=== PATIENT | male | born 1950 | race Caucasian/White ===

== ENCOUNTER 2018-06-03 18:00 | Inpatient (IN) | payer MEDICARE ==
[~2018-06-03] VITALS: Ht 188 cm; Wt 107.0 kg
--- NOTE | 2018-06-03 18:15 | NUR ---
PT BIB RA WITH A C/O GLF. PT ARRIVED DISHEVELED, UNKEPT, ABLE TO MOVE ALL EXTREMITIES. DR DRAPER IS AT THE BEDSIDE. PT STATED THAT HE DID NOT FALL TODAY. THAT HIS FRIEND "KEEGAN", TOLD HIM TO SIT DOWN AND THE CHAIR WAS NOT THERE WHEN HE SAT. PT STATED THAT HE NEVER FALLS. PER EMS, PT HAS HAD MANY FALLS IN THE PAST AND THE PT'S HOUSE APPEARS UNKEPT. PT STATED THAT HE IS FINE TAKING CARE OF HIMSELF, BUT IS NOT ABLE TO GET UP OFF THE FLOOR BY HIMSELF WHEN HE FALLS. PT STATED THAT HIS PAIN IS CHRONIC AND THE INCIDENT TODAY CAUSED HIS CHRONIC PAIN TO FLARE UP.
[2018-06-03] MEDS ORDERED: ONDANSETRON HCL/PF 4 MG/2 ML VIAL ONE (18:21)
[2018-06-03] MEDS ORDERED: HYDROMORPHONE INJ 0.5 MG/0.5 ML SYRINGE ONE (18:22)
[2018-06-03] MEDS ORDERED: HYDROMORPHONE 1 MG/1 ML DISP.SYRIN IV ONE (18:30)
[2018-06-03] MEDS ORDERED: IV NS 0.9% 1,000 ML BAG IV ONE (18:30)
[2018-06-03] MEDS ORDERED: ONDANSETRON HCL/PF 4 MG/2 ML VIAL IV ONE (18:30)
--- NOTE | 2018-06-03 18:30 | NUR ---
PT REC'D A UNRINAL. PT IS NOT ABLE TO GIVE A URINE SAMPLE AT THIS TIME.
[2018-06-03 18:35] LABS: BASOPHILS % (AUTO) 0.2 % (0.0-2.0); EOSINOPHILS % (AUTO) 3.2 % (0.0-6.0); HEMATOCRIT 40 % (39-51); HEMOGLOBIN 14.3 g/dL (13.5-17.5); LYMPHOCYTES % (AUTO) 23.6 % (20.0-44.0); MEAN CORPUSCULAR HGB CONC 35 g/dl (31.0-36.0); MEAN CORPUSCULAR VOLUME 101 fL (80-96); MONOCYTES # (AUTO) 0.6 /CMM (0.1-1.30); NEUTROPHILS # (AUTO) 5.5 /CMM (1.8-8.9); PLATELET COUNT (AUTO) 204 /CMM (150-450); WHITE BLOOD COUNT (AUTO) 8.4 K/uL (4.3-11.0)
--- NOTE | 2018-06-03 18:39 | NUR ---
Note ian in EDM - 06/03/18 at [address] DRAPER IS AT THE BEDSIDE SPEAKING TO THE PT RE: THE CT'S THAT SHE REFUSED. DR. DRAPER IS SPEAKING TO THE PT'S BROTHER.
[2018-06-03 18:52] LABS: CALCIUM, SERUM 9.7 mg/dL (8.5-10.1); CARBON DIOXIDE 30 mmol/L (21-32); CHLORIDE 103 mmol/L (98-107); CREATININE 0.9 mg/dL (0.6-1.3); GLUCOSE 84 mg/dL (74-106); POTASSIUM 3.8 mmol/L (3.5-5.1); SODIUM SERUM 139 mmol/L (136-145); UREA NITROGEN, BLOOD 13 mg/dL (7-18)
[2018-06-03 18:57] LABS: ALANINE AMINOTRANSFERASE 21 U/L (12-78); ALBUMIN 3.6 g/dL (3.4-5.0); ALCOHOL, BLOOD 148 mg/dL (0-0); ALKALINE PHOSPHATASE 147 U/L (46-116); ASPARTATE AMINOTRANSFERASE 34 U/L (15-37); BILIRUBIN,DIRECT 0.3 mg/dL (0.0-0.2); BILIRUBIN,TOTAL 0.9 mg/dL (0.2-1.0); TOTAL PROTEIN, SERUM 8.1 g/dL (6.4-8.2)
--- NOTE | 2018-06-03 19:05 | NUR ---
CHRISTINA EMT SPOKE TO THE PT WHO IS STILL UNABLE TO GIVE A URINE SAMPLE.
--- NOTE | 2018-06-03 19:17 | NUR ---
CALLED FOR MS BED WAS INFORMED TO CALL BACK AFTER 1929
--- NOTE | 2018-06-03 19:45 | NUR ---
PT IS STILL NOT ABLE TO GIVE A URINE SAMPLE. IS AWARE.
[2018-06-03 19:56] LABS: THYROID STIMULATING HORMONE 181.201 uIU/mL (0.358-3.74)
--- NOTE | 2018-06-03 20:00 | NUR ---
PT LEFT FOR CT VIA RNEY
--- NOTE | 2018-06-03 20:42 | NUR ---
CALLED MORENITA RE: CT'S FOR PT. RADIOLOGIST IS GOING TO READ THEM NOW.
--- NOTE | 2018-06-03 21:22 | NUR ---
Graciela Morales, pt's cousin, she would like to be called in and present when the pt speaks to the social insurance adviser tomorrow. she can be reached at [phone].
--- NOTE | 2018-06-03 21:25 | NUR ---
report given to BLANCA Chirinos,.
--- NOTE | 2018-06-03 21:25 | NUR ---
calling report to MS nurse.
--- NOTE | 2018-06-03 21:40 | NUR ---
MS/RN RECEIVE PATIENT FROM E.. VIA [facility]. PATIENT IS AWAKE, ALERT, ORIENTED, COMFORTABLE, LOW BACK PAIN LEVEL2/10 AT REST, NO DISTRESS NOTED, MADE COMFORTABLE IN BED, TAUGHT THE USE OF CALL LIGHT, VERBALIZED UNDERSTANDING, PLACED IT AT BEDSIDE WITHIN REACH. ADMISSION DONE PER PROTOCOL. AWAITING MD ORDERS. WILL MONITOR.
[2018-06-03 22:00] VITALS: BP 142/90
[2018-06-03] MEDS ORDERED: THIAMINE HCL 100 MG TABLET PO SCH (23:00)
[2018-06-03] MEDS ORDERED: ACETAMINOPHEN 325 MG TABLET PO PRN (23:00)
[2018-06-03] MEDS ORDERED: ONDANSETRON HCL/PF 4 MG/2 ML VIAL IVP PRN (23:00)
[2018-06-03] MEDS ORDERED: Z GUARD REMEDY 2 OZ OINT TP PRN (23:00)
[2018-06-03] MEDS ORDERED: THIAMINE HCL 100 MG TABLET PO ONE (23:45)
[2018-06-03] MEDS ORDERED: DEXAMETHASONE SOD PHOSPHATE 4 MG/ML VIAL IV ONE (23:45)
[2018-06-03] MEDS ORDERED: ENOXAPARIN SODIUM 40 MG/0.4 ML DISP.SYRIN SQ ONE (23:45)
[2018-06-03] MEDS: IV NS 0.9% 1,000 ML IV PRN (23:54)
[2018-06-03] MEDS: GABAPENTIN 100 MG CAPSULE PO SCH (23:55)
[2018-06-03] MEDS: MAGNESIUM OXIDE 400 MG TABLET PO SCH (23:55)
--- NOTE | 2018-06-04 01:14 | NUR ---
MS/RN PATIENT IS SLEEPING AT THIS TIME, APPEAR COMFORTABLE, NO DISTRESS NOTED, CALL LIGHT IN REACH. WILL CONTINUE TO MONITOR.
[2018-06-04 07:14] LABS: BASOPHILS % (AUTO) 0.6 % (0.0-2.0); EOSINOPHILS % (AUTO) 0.1 % (0.0-6.0); HEMATOCRIT 40 % (39-51); LYMPHOCYTES # (AUTO) 0.6 /CMM (0.8-4.8); LYMPHOCYTES % (AUTO) 10.6 % (20.0-44.0); MEAN CORPUSCULAR HGB CONC 35 g/dl (31.0-36.0); MEAN CORPUSCULAR VOLUME 100 fL (80-96); MONOCYTES # (AUTO) 0.1 /CMM (0.1-1.30); MONOCYTES % (AUTO) 1.5 % (2.0-12.0); NEUTROPHILS # (AUTO) 5.2 /CMM (1.8-8.9); NEUTROPHILS % (AUTO) 87.2 % (43.0-81.0); PLATELET COUNT (AUTO) 175 /CMM (150-450); WHITE BLOOD COUNT (AUTO) 5.9 K/uL (4.3-11.0)
[2018-06-04 07:39] LABS: ALBUMIN 3.2 g/dL (3.4-5.0); BILIRUBIN,TOTAL 0.8 mg/dL (0.2-1.0); CREATININE 0.6 mg/dL (0.6-1.3); PHOSPHORUS 4.2 mg/dL (2.5-4.9); POTASSIUM 4.5 mmol/L (3.5-5.1); TOTAL PROTEIN, SERUM 7.5 g/dL (6.4-8.2)
[2018-06-04 07:50] LABS: THYROID STIMULATING HORMONE 71.014 uIU/mL (0.358-3.74)
--- NOTE | 2018-06-04 07:55 | NUR ---
MS/RN PATIENT STILL SLEEPING, AROUSABLE, APPEAR COMFORTABLE, NO DISTRESS NOTED, ALL NEEDS ATTENDED AT THIS TIME. ENDORSED TO NEXT RN FOR CONTINUITY OF CARE.
[2018-06-04 08:00] VITALS: BP 128/86
--- NOTE | 2018-06-04 08:05 | NUR ---
ms rn received on bed, awake,alert,oriented x4,not in any form of distress,respirations even and unlabored,no sob noted, lungs are clear,abdomen soft,positive bowel sounds,denies pain at this time,all needs attended.
[2018-06-04] MEDS: LEVOTHYROXINE SODIUM 100 MCG TABLET PO SCH (09:35)
[2018-06-04] MEDS: MULTIVITAMINS,THERAGRAN 1 UDTAB TABLET PO SCH (09:36)
[2018-06-04] MEDS: THIAMINE HCL 100 MG TABLET PO SCH (09:36)
[2018-06-04] MEDS: GABAPENTIN 100 MG CAPSULE PO SCH ×3 (09:36→16:49)
--- NOTE | 2018-06-04 09:40 | NUR ---
MS RIOS BREAKFAST SERVED,DUE MEDS GIVEN,TOLERATED WELL.
[2018-06-04] MEDS: LIOTHYRONINE SODIUM (25 MCG) 25 MCG TABLET PO SCH (09:50)
[2018-06-04] MEDS: HYDROCODONE/APAP 5/325MG 1 EACH TABLET PO PRN (12:03)
--- NOTE | 2018-06-04 14:00 | NUR ---
MS RN WENT DOWN FOR MRI.
--- NOTE | 2018-06-04 14:02 | NUR ---
Social service consult requested by Dr. Romero for alcohol abuse. Pt. is a 67 year old male who was admitted to [facility] for general weakness and back pain. SW met with pt. bedside. Pt. is alert and oriented x 4. Pt. was lying in his bed during the entire assessment. Initially pt. was guarded, however as the assessment continued pt. became more talkative and shared more. Pt. states he lives alone at [address] [place] [address] [place] [address]. Pt's emergency contact is his cousin Graciela Tesfaye . Pt. is and has two daughters who are emotionally distant from him as stated by the pt. Pt. states he has no family support at home. Pt. is interested in receiving some caregiving at home. SW to reach out to hospital insurance Liaison Ying to inquire if pt. will qualify for Medi-gertrude. Pt. states he drinks approximately two glasses of hard liquor and beer per day. Pt. states he has been drinking for a long time. Pt. stated, he started drinking heavier after his divorce six years ago. Pt. has not been to any alcohol treatment program in the past or attended AA meetings. Pt. is interested in alcohol treatment program referrals. SW to give pt. referrals prior to discharge. 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 Pt. has been having back problems and is using alcohol to help alleviate his pain, thus drinking more. Pt. will be getting an MRI. No other social service needs are requested at this time. SW is available, if needed. SW to give pt. alcohol treatment program referrals prior to discharge.
[2018-06-04 16:00] VITALS: BP 126/82
[2018-06-04] MEDS: IV NS 0.9% 1,000 ML IV PRN (16:50)
--- NOTE | 2018-06-04 17:00 | NUR ---
MS RN DUE MEDS,FAMILY AT BEDSIDE.
--- NOTE | 2018-06-04 17:52 | NUR ---
MS RN ON BED, NO DISTRESS NOTED,ALL NEEDS ATTENDED.
--- NOTE | 2018-06-04 19:00 | NUR ---
MS RN RECEIVED PT ON BED, A/O X 3, NOT IN ANY FORM OF DISTRESS, RESPIRATIONS EVEN AND UNLABORED, NO SOB NOTED, STABLE CONDITION. SAFETY MEASURES IN PLACE. WILL CONTINUE TO MONITOR.
[2018-06-04 19:54] LABS: APPEARANCE,URINE CLOUDY (CLEAR); BILIRUBIN,URINE NEGATIVE (NEGATIVE); BLOOD, URINE NEGATIVE Ery/uL (NEGATIVE); COLOR,URINE YELLOW (YELLOW); KETONES,URINE NEGATIVE (NEGATIVE); LEUKOCYTE ESTERASE ,URINE NEGATIVE (NEGATIVE); NITRITE, URINE NEGATIVE (NEGATIVE); PROTEIN,URINE NEGATIVE (NEGATIVE); UGLUCOSE NEGATIVE (NEGATIVE)
[2018-06-04 20:00] VITALS: BP 122/80
--- NOTE | 2018-06-04 20:29 | NUR ---
PATIENT WANTS TO HAVE THE ECHO TEST DONE TOMORROW.
[2018-06-04 20:43] VITALS: BP 122/80
[2018-06-04] MEDS: ENOXAPARIN SODIUM 40 MG/0.4 ML DISP.SYRIN SQ SCH (20:58)
[2018-06-04] MEDS: MAGNESIUM OXIDE 400 MG TABLET PO SCH (21:12)
[2018-06-04 21:33] LABS: BACTERIA,URINE None seen /HPF (None Seen); RBC,URINE 0-2 /HPF (0-2); SQUAMOUS EPITHELIAL CELL,UR Rare /HPF (None Seen); WBC,URINE 0-2 /HPF (0-3)
[2018-06-04 21:34] LABS: URINE AMORPHOUS URATE Many /HPF (None Seen)
[2018-06-05] MEDS: IV NS 0.9% 1,000 ML IV PRN ×2 (05:56→21:11)
--- NOTE | 2018-06-05 06:19 | NUR ---
RN CLOSING NOTE ASLEEP AND EASILY AWAKEN. NOT IN DISTRESS. STABLE, NURSING CARE RENDERED, KEPT CLEAN AND DRY AND COMFORT, NEEDS ATTENDED AND ANTICIPATED. NO COMPLAIN OF PAIN. ASSISTED REPOSITION EVERY 2 HOURS. OFFLOAD HEELS AND ELBOWS. GOOD SKIN CARE. SAFETY MEASURES IN PLACE, CALL LIGHT WITHIN REACH. WILL ENDORSE TO GAG WRITER FOR KELLY.
--- NOTE | 2018-06-05 07:10 | NUR ---
MS RN OPENING NOTE RECEIVED PT ASLEEP IN BED BUT EASILY AWOKEN BY VERBAL OR TOUCH. PT ABLE TO MAKE NEEDS KNOWN. NO S/S OF ACUTE DISTRESS OR SOB NOTED. NO COMPLAINT OF PAIN AT THIS TIME. CALL LIGHT WITHIN REACH. WILL CONTINUE TO MONITOR.
[2018-06-05 08:00] VITALS: BP 116/70
[2018-06-05] MEDS: GABAPENTIN 100 MG CAPSULE PO SCH ×3 (08:10→17:14)
[2018-06-05] MEDS: MULTIVITAMINS,THERAGRAN 1 UDTAB TABLET PO SCH (08:10)
[2018-06-05] MEDS: THIAMINE HCL 100 MG TABLET PO SCH (08:10)
[2018-06-05] MEDS: LIOTHYRONINE SODIUM (25 MCG) 25 MCG TABLET PO SCH (08:10)
[2018-06-05] MEDS: LEVOTHYROXINE SODIUM 100 MCG TABLET PO SCH (08:10)
--- NOTE | 2018-06-05 11:04 | NUR ---
SW met with pt. bedside to give him resources to Alcohol treatment programs. Pt. is alert and oriented x 4. The following resources were given: [facility] Substance Abuse Self-helpline ([facility]) Contact number . [facility] [address] [facility] [place] [id number] [facility] [address] [facility] [place] [address] [facility] Rehabilitation Program ([place] based) [address] [place] [address] (Six months program and need to work for 8 hrs per day while in treatment) [facility] (No insurance required) [address] [place] [address] [facility] [address] [facility] [address] Closed on Sunday Open Sunday through Sunday 9 am -6 pm Sunday 10am 5 pm [facility] [phone] [place] [address] No other social service needs are requested at this time. SW is available, if needed.
[2018-06-05 16:05] VITALS: BP 102/56
[2018-06-05 20:19] VITALS: BP 133/89
[2018-06-05] MEDS: MAGNESIUM OXIDE 400 MG TABLET PO SCH (21:10)
[2018-06-05] MEDS: ENOXAPARIN SODIUM 40 MG/0.4 ML DISP.SYRIN SQ SCH (21:10)
[2018-06-05] MEDS: HYDROCODONE/APAP 5/325MG 1 EACH TABLET PO PRN (21:11)
--- NOTE | 2018-06-06 06:30 | NUR ---
MS RN NOTES AWAKE & RESPONSIVE. NOT IN ANY DISTRESS. NO SOB NOTED. DENIES ANY PAIN OR DISCOMFORT AT THIS TIME. WITH IVF INFUSING WELL. MONITORED ACCORDINGLY. CALL LIGHT WITHIN REACH. BED IN LOWEST POSITION. SR UP X 3 FOR SAFETY WITH BED ALARM ON FOR SAFETY. WILL ENDORSE TO NEXT SHIFT.
--- NOTE | 2018-06-06 07:10 | NUR ---
MS RN OPENING NOTE RECEIVED PT ASLEEP IN BED BUT EASILY AWOKEN BY VERBAL OR TOUCH. NS@75 ML/HR IN RAC 18G. PT ABLE TO MAKE NEEDS KNOWN. NO S/S OF ACUTE DISTRESS OR SOB NOTED. NO COMPLAINT OF PAIN AT THIS TIME. CALL LIGHT WITHIN REACH. WILL CONTINUE TO MONITOR.
[2018-06-06 08:00] VITALS: BP 133/75
[2018-06-06] MEDS: MULTIVITAMINS,THERAGRAN 1 UDTAB TABLET PO SCH (08:36)
[2018-06-06] MEDS: GABAPENTIN 100 MG CAPSULE PO SCH ×3 (08:36→16:51)
[2018-06-06] MEDS: LEVOTHYROXINE SODIUM 100 MCG TABLET PO SCH (08:36)
[2018-06-06] MEDS: THIAMINE HCL 100 MG TABLET PO SCH (08:36)
[2018-06-06] MEDS: LIOTHYRONINE SODIUM (25 MCG) 25 MCG TABLET PO SCH (08:36)
[2018-06-06] MEDS ORDERED: GABA100C PO (14:25)
[2018-06-06] MEDS ORDERED: HYDR-3972 PO (14:25)
[2018-06-06] MEDS ORDERED: LEVO100T PO (14:25)
[2018-06-06] MEDS ORDERED: ACET325T53 PO (14:25)
[2018-06-06] MEDS ORDERED: Thiamine HCL PO (14:25)
[2018-06-06] MEDS ORDERED: LIOT25TA7 PO (14:25)
[2018-06-06] MEDS ORDERED: MULT-24 PO (14:25)
[2018-06-06 15:53] VITALS: BP 95/52
[2018-06-06] MEDS: IV NS 0.9% 1,000 ML IV PRN (16:52)
--- NOTE | 2018-06-06 18:00 | NUR ---
MS RN CLOSING NOTES PT IN BED AWAKE AND ALERT WATCHING TV. NO S/S OF ACUTE DISTRESS OR SOB NOTED. DENIES ANY PAIN OR DISCOMFORT AT THIS TIME. PT WITH IVF INFUSING WELL IN RIGHT HAND #22. MONITORED ACCORDINGLY. POSSIBLE D/C TOMORROW TO [facility] AFTER PT EVALUATION. ORDER FOR TLSO BRACE WHEN OUT OF BED FOR 6 WEEKS. CALL LIGHT WITHIN REACH. BED IN LOWEST POSITION. SR UP X 3 FOR SAFETY WITH BED ALARM ON. WILL ENDORSE TO NEXT SHIFT OR CONTINUED CARE.
[2018-06-06 20:00] VITALS: BP 107/67
--- NOTE | 2018-06-06 20:00 | NUR ---
MS RN NOTES RECEIVED PATIENT AWAKE IN BED WITH NO DISTRESS NOTED. CALL LIGHT WITHIN REACH. NO C/O PAIN OR DISCOMFORT. PERIPHERAL LINE INTACT AND PATENT. BED IN LOW LOCK SETTING. ALL BELONGINGS KEPT NEAR BEDSIDE. WILL CONTINUE TO MONITOR.
[2018-06-06] MEDS: MAGNESIUM OXIDE 400 MG TABLET PO SCH (21:45)
[2018-06-06] MEDS: ENOXAPARIN SODIUM 40 MG/0.4 ML DISP.SYRIN SQ SCH (21:46)
--- NOTE | 2018-06-07 06:09 | NUR ---
MS RN NOTES RECEIVED PATIENT ASLEEP IN BED WITH NO DISTRESS NOTED. CALL LIGHT WITHIN REACH. ALL DUE MEDS GIVEN ORDERED WITH NO ASE. NO C/O PAIN OR DISCOMFORT. PERIPHERAL LINE INTACT AND PATENT. BED IN LOW LOCK SETTING. ROOM FREE OF CLUTTER AND ALL BELONGINGS KEPT NEAR BEDSIDE. WILL ENDORSE TO ONCOMING SHIFT.
[2018-06-07 06:27] LABS: BASOPHILS # (AUTO) 0.1 /CMM (0.0-0.2); BASOPHILS % (AUTO) 0.7 % (0.0-2.0); EOSINOPHILS % (AUTO) 3.5 % (0.0-6.0); HEMATOCRIT 36 % (39-51); HEMOGLOBIN 12.9 g/dL (13.5-17.5); LYMPHOCYTES # (AUTO) 1.3 /CMM (0.8-4.8); LYMPHOCYTES % (AUTO) 16.4 % (20.0-44.0); MEAN CORPUSCULAR HGB CONC 35 g/dl (31.0-36.0); MEAN CORPUSCULAR VOLUME 101 fL (80-96); MONOCYTES # (AUTO) 0.9 /CMM (0.1-1.30); MONOCYTES % (AUTO) 11.7 % (2.0-12.0); NEUTROPHILS # (AUTO) 5.2 /CMM (1.8-8.9); NEUTROPHILS % (AUTO) 67.7 % (43.0-81.0); PLATELET COUNT (AUTO) 138 /CMM (150-450); RED BLOOD CELL COUNT(AUTO) 3.62 MIL/uL (4.5-6.0); WHITE BLOOD COUNT (AUTO) 7.7 K/uL (4.3-11.0)
[2018-06-07 06:41] LABS: CALCIUM, SERUM 8.5 mg/dL (8.5-10.1); CREATININE 0.5 mg/dL (0.6-1.3); MAGNESIUM 1.8 mg/dL (1.8-2.4); PHOSPHORUS 3.9 mg/dL (2.5-4.9); POTASSIUM 3.9 mmol/L (3.5-5.1)
[2018-06-07] MEDS: IV NS 0.9% 1,000 ML IV PRN (06:43)
--- NOTE | 2018-06-07 07:00 | NUR ---
MS RN OPENING NOTE RECEIVED PT ASLEEP IN BED BUT EASILY AWOKEN BY VERBAL STIMULI OR TOUCH. NS@75 ML/HR IN RIGHT HAND #22G. PT ABLE TO MAKE NEEDS KNOWN. NO S/S OF ACUTE DISTRESS OR SOB NOTED. NO COMPLAINT OF PAIN AT THIS TIME. CALL LIGHT WITHIN REACH. WILL CONTINUE TO MONITOR.
[2018-06-07 08:00] VITALS: BP 103/68
[2018-06-07] MEDS: THIAMINE HCL 100 MG TABLET PO SCH (08:03)
[2018-06-07] MEDS: MULTIVITAMINS,THERAGRAN 1 UDTAB TABLET PO SCH (08:03)
[2018-06-07] MEDS: LIOTHYRONINE SODIUM (25 MCG) 25 MCG TABLET PO SCH (08:03)
[2018-06-07] MEDS: GABAPENTIN 100 MG CAPSULE PO SCH ×3 (08:04→16:50)
[2018-06-07] MEDS: LEVOTHYROXINE SODIUM 100 MCG TABLET PO SCH (08:04)
[2018-06-07 16:00] VITALS: BP 132/87
[2018-06-07] MEDS ORDERED: BISACODYL (5 MG) 5 MG TABLET.DR PO ONE (16:30)
[2018-06-07] MEDS: HYDROCODONE/APAP 5/325MG 1 EACH TABLET PO PRN (17:56)
--- NOTE | 2018-06-07 18:46 | NUR ---
M/S RN - Discharge Patient aox4, discharged to [facility] in stable condition. Reviewed discharge instructions with Marixa RIOS and she verbalized full understanding and all questions answered to her satisfaction. Cousin of pt Graciela informed of discharge. Patient will have TLSO brace when out of bed x 6 weeks. Saline lock removed on the right hand with catheter tip intact, no redness, no swelling at the site. Skin intact. Patient left with all belongings. VSS, no complaints of pain at this time, afebrile, no apparent distress seen. No fall/injury during hospital stay. Discharge papers sent with ambulance crew including. Endorsed to ambulance crew accordingly.
== END 2018-06-07 18:40 | DRG 544 ==
LOC: ER 18:03 → MED 20:36
PROVIDERS: ADMIT Nurse Practitioner Acute Care; ATTEND Student in an Organized Health Care Education/Training Program
DX: M48.56XA Collapsed vertebra, not elsewhere classified, lumbar region, initial encounter for fracture (principal); M48.07 Spinal stenosis, lumbosacral region; M51.36 Other intervertebral disc degeneration, lumbar region; E23.3 Hypothalamic dysfunction, not elsewhere classified; E53.8 Deficiency of other specified B group vitamins; E03.9 Hypothyroidism, unspecified; G89.29 Other chronic pain; I10 Essential (primary) hypertension; F10.20 Alcohol dependence, uncomplicated; D75.89 Other specified diseases of blood and blood-forming organs; M47.816 Spondylosis without myelopathy or radiculopathy, lumbar region
CPT/HCPCS: 36415; 70450-TC; 71045-TC; 72131-TC; 72148-TC; 80048-TC; 80053-TC; 80061-TC; 80076-TC; 80305; 81000-TC; 82024; 82533; 82550-TC; 83540-TC; 83735-TC; 84100-TC; 84439-TC; 84443-TC; 84484-TC; 85025-TC; 85652-TC; 85730-TC; 87081-TC; 93307-TC; G0378; G0480; J1100; J1650; J2405; J7030

== ENCOUNTER 2022-02-18 19:52 | Inpatient (IN) | payer MEDICARE ==
[~2022-02-18] VITALS: Ht 190.5 cm; Wt 109.8 kg
[~2022-02-18 19:52] MED LIST: ACET325T53 PO; GABA100C PO; HYDR-3972 PO; LEVO100T PO; LIOT25TA7 PO; MULT-24 PO; Thiamine HCL PO
--- NOTE | 2022-02-18 20:15 | NUR ---
TO ER BED 9. BIBRA FROM HOME C/O UNWITNESSED GLF -KO -TRAUMA .HX CHRONIC BACK PAIN. PT IS ALERT. RR EVEN AND NON LABORED. CONNECTED TO MONITOR. AWAITING MD HAYES
--- NOTE | 2022-02-18 21:00 | NUR ---
URINE SAMPLE COLLECTED
[2022-02-18 21:09] LABS: BASOPHILS # (AUTO) 0.1 K/uL (0.0-0.2); BASOPHILS % (AUTO) 1.1 % (0.0-2.0); EOSINOPHILS % (AUTO) 6.6 % (0.0-6.0); HEMATOCRIT 43 % (39-51); HEMOGLOBIN 15.1 g/dL (13.5-17.5); LYMPHOCYTES # (AUTO) 1.8 K/uL (0.8-4.8); LYMPHOCYTES % (AUTO) 29.8 % (20.0-44.0); MEAN CORPUSCULAR HGB CONC 35 g/dl (31.0-36.0); MEAN CORPUSCULAR VOLUME 106 fL (80-96); MONOCYTES # (AUTO) 0.4 K/uL (0.1-1.30); MONOCYTES % (AUTO) 6.4 % (2.0-12.0); NEUTROPHILS # (AUTO) 3.3 K/uL (1.8-8.9); NEUTROPHILS % (AUTO) 56.1 % (43.0-81.0); PLATELET COUNT (AUTO) 143 K/uL (150-450); RED BLOOD CELL COUNT(AUTO) 4.05 MIL/uL (4.5-6.0); WHITE BLOOD COUNT (AUTO) 5.9 K/uL (4.3-11.0)
[2022-02-18 21:19] LABS: BILIRUBIN,URINE NEGATIVE (NEGATIVE); COLOR,URINE YELLOW (YELLOW); LEUKOCYTE ESTERASE ,URINE MODERATE (NEGATIVE); NITRITE, URINE NEGATIVE (NEGATIVE); PROTEIN,URINE NEGATIVE (NEGATIVE); UGLUCOSE NEGATIVE (NEGATIVE)
[2022-02-18 21:29] LABS: CALCIUM, SERUM 9.9 mg/dL (8.5-10.1); CREATININE 1.1 mg/dL (0.6-1.3); POTASSIUM 4.2 mmol/L (3.5-5.1)
[2022-02-18 21:34] LABS: ALBUMIN 4.1 g/dL (3.4-5.0); BILIRUBIN,DIRECT 0.7 mg/dL (0.0-0.2); BILIRUBIN,TOTAL 1.7 mg/dL (0.2-1.0); TOTAL PROTEIN, SERUM 9.2 g/dL (6.4-8.2)
[2022-02-18 21:35] LABS: BASOPHILS % (MANUAL) 1 % (0.0-2.0); EOSINOPHILS % (MANUAL) 3 % (0-4); LYMPHOCYTES % (MANUAL) 36 % (16-48); MONOCYTES % (MANUAL) 6 % (0-11.0); NEUTROPHILS % (MANUAL) 54 (42-76)
[2022-02-18 21:53] LABS: BACTERIA,URINE Moderate /HPF (None Seen); RBC,URINE 0-2 /HPF (0-2); SQUAMOUS EPITHELIAL CELL,UR Few /HPF (None Seen); WBC,URINE 21-50 /HPF (0-3)
--- NOTE | 2022-02-18 22:27 | NUR ---
IV LINE ESTABLISHED, LHAND 20G
--- NOTE | 2022-02-18 22:27 | NUR ---
COVID SAMPLE COLLECTED
[2022-02-18] MEDS ORDERED: CEFTRIAXONE 1GM BAG (ER ONLY) 50 ML IV ONE ×2 (22:30)
--- NOTE | 2022-02-18 22:31 | NUR ---
CALLED [facility], PAGED FLORA MARIEE
[2022-02-18] MEDS ORDERED: Z GUARD REMEDY 4 OZ OINT TP PRN (23:30)
[2022-02-18] MEDS ORDERED: MAG HYDROX/AL HYDROX/SIMETH 30 ML UDC PO PRN (23:30)
[2022-02-18] MEDS ORDERED: IV D5/0.45 NACL 1,000 ML IV PRN (23:30)
[2022-02-18] MEDS ORDERED: MAGNESIUM HYDROXIDE 30 ML UDC PO PRN (23:30)
[2022-02-18] MEDS ORDERED: ONDANSETRON HCL/PF 4 MG/2 ML VIAL IVP PRN (23:30)
[2022-02-18] MEDS ORDERED: ACETAMINOPHEN 325 MG TABLET PO PRN ×2 (23:30)
[2022-02-19] MEDS ORDERED: IV NS 0.9% 1,000 ML IV ONE
--- NOTE | 2022-02-19 01:22 | NUR ---
PT IS RESTING COMFORTABLY IN BED W/ EYES CLOSED, RR EVEN AND NON LABORED. CONNECTED TO MONITOR
--- NOTE | 2022-02-19 03:00 | NUR ---
PT PROVIDED WITH WARM BLANKET FOR COMFORT.
[2022-02-19 05:03] LABS: BASOPHILS % (AUTO) 0.3 % (0.0-2.0); EOSINOPHILS % (AUTO) 7.4 % (0.0-6.0); HEMATOCRIT 41 % (39-51); HEMOGLOBIN 14.2 g/dL (13.5-17.5); LYMPHOCYTES # (AUTO) 2.2 K/uL (0.8-4.8); LYMPHOCYTES % (AUTO) 33.5 % (20.0-44.0); MEAN CORPUSCULAR HGB CONC 35 g/dl (31.0-36.0); MEAN CORPUSCULAR VOLUME 107 fL (80-96); MONOCYTES # (AUTO) 0.5 K/uL (0.1-1.30); MONOCYTES % (AUTO) 7.4 % (2.0-12.0); NEUTROPHILS # (AUTO) 3.4 K/uL (1.8-8.9); NEUTROPHILS % (AUTO) 51.4 % (43.0-81.0); PLATELET COUNT (AUTO) 138 K/uL (150-450); RED BLOOD CELL COUNT(AUTO) 3.82 MIL/uL (4.5-6.0); WHITE BLOOD COUNT (AUTO) 6.6 K/uL (4.3-11.0)
[2022-02-19 05:20] LABS: CALCIUM, SERUM 9.1 mg/dL (8.5-10.1); PHOSPHORUS 3.9 mg/dL (2.5-4.9); POTASSIUM 3.9 mmol/L (3.5-5.1)
[2022-02-19 05:32] LABS: THYROID STIMULATING HORMONE 218.431 uIU/mL (0.358-3.74)
--- NOTE | 2022-02-19 06:43 | NUR ---
PT CONTINUES TO REST IN BED WITH EYES CLOSED. RR EVEN AND NONLABORED. NO SIGNS OF DISTRESS. CONNECTED TO POX AND HEART MONITOR.VSS.
--- NOTE | 2022-02-19 07:15 | NUR ---
RECEVED PT FROM MASHA RIOS PT asleepy wating for room respiration spont and easy
--- NOTE | 2022-02-19 07:21 | NUR ---
REPORT GIVEN TO PHEOBE FOR KELLY
[2022-02-19] MEDS ORDERED: LEVOTHYROXINE SODIUM 100 MCG TABLET PO SCH (07:30)
[2022-02-19] MEDS ORDERED: LIOTHYRONINE SODIUM (25 MCG) 25 MCG TABLET PO SCH (07:30)
--- NOTE | 2022-02-19 07:46 | NUR ---
BED ESRTGMIB=779-2
--- NOTE | 2022-02-19 08:30 | NUR ---
TO ROOM 313- 2 HAND OFF MORELIA RIOS
--- NOTE | 2022-02-19 08:35 | NUR ---
TO room 313-2 via tanner troncoso vs
[2022-02-19 09:00] VITALS: BP 111/69
[2022-02-19] MEDS ORDERED: LEVOTHYROXINE INJ 100 MCG VIAL IV ONE (09:00)
[2022-02-19] MEDS ORDERED: CEFTRIAXONE 1 G in IV D5W 50 ML IV SCH (09:00)
--- NOTE | 2022-02-19 09:00 | NUR ---
RECEIVED PATIENT FROM ED WITH CHIEF COMPLAINED OF UNWITNESSED FALL. AWAKE, ALERT AND ORIENTED. ON ROOM AIR. WITH IV LINE AT LEFT HAND. INTIAL VITALS TAKEN AND RECORDED. ALL DUE MEDS WERE GIVEN. WILL MONITOR. KEPT COMFORTABLE. Addendum: 02/19/22 at 1308 by RUTH MADERA RN BLANCA FARMER
[2022-02-19] MEDS ORDERED: LEVOTHYROXINE SODIUM 50 MCG TABLET PO SCH (09:30)
[2022-02-19] MEDS ORDERED: LORAZEPAM INJ 2 MG/ML VIAL IV PRN (09:30)
[2022-02-19] MEDS: GABAPENTIN 100 MG CAPSULE PO SCH ×3 (09:50→16:23)
[2022-02-19] MEDS: FOLIC ACID 1 MG TABLET PO SCH (09:50)
[2022-02-19] MEDS: THIAMINE HCL 100 MG TABLET PO SCH (09:50)
[2022-02-19] MEDS: MULTIVITAMINS,THERAGRAN 1 UDTAB TABLET PO SCH (09:50)
[2022-02-19] MEDS: PANTOPRAZOLE 40 MG TABLET.DR PO SCH (09:58)
[2022-02-19] MEDS: IV D5/ 0.9% NACL 1,000 ML IV SCH ×2 (10:07→19:44)
[2022-02-19] MEDS: CEFTRIAXONE 2 G in IV D5W 100 ML IV SCH (10:08)
[2022-02-19] MEDS: LEVOTHYROXINE SODIUM 100 MCG TABLET PO SCH (10:25)
[2022-02-19 10:29] LABS: BASOPHILS % (MANUAL) 0 % (0.0-2.0); EOSINOPHILS % (MANUAL) 4 % (0-4); LYMPHOCYTES % (MANUAL) 29 % (16-48); MONOCYTES % (MANUAL) 6 % (0-11.0); NEUTROPHILS % (MANUAL) 61 (42-76)
[2022-02-19] MEDS: LIOTHYRONINE SODIUM (25 MCG) 25 MCG TABLET PO SCH (11:33)
[2022-02-19] MEDS: CHLORDIAZEPOXIDE HCL 25 MG CAPSULE PO SCH ×2 (12:33→21:11)
--- NOTE | 2022-02-19 18:39 | NUR ---
RN CLOSING NOTE PATIENT IS A/O X 3, COOPERATIVE AND ABLE TO MAKE NEEDS KNOWN. ON RA, TOLERATING WELL. NO SOB NOTED. BREATHING EVEN AND UNLABORED. PATIENT HAS LFA 20 G IV ACCESS,INFUSING WELL. NO FURTHER COMPLAINS ALL THROUGHOUT THE SHIFT. SAFETY MEASURES IN PLACE: BED LOCKED AND IN LOWEST POSITION, CALL LIGHT WITHIN REACH, SIDE RAILS UP. ALL NEEDS MET AND ATTENDED. ALL ORDERS CARRIED OUT. WILL ENDORSE TO BUTTON SEWER NURSE FOR KELLY.
[2022-02-19 19:16] VITALS: BP 101/66
[2022-02-19 19:22] VITALS: BP 101/66
--- NOTE | 2022-02-19 20:15 | NUR ---
MS RN OPENING NOTE RECEIVED PATIENT RESTING IN BED, ALERT/ORIENTED X 3, PERIODS OF CONFUSION PER DAYSHIFT RN. PATIENT STABLE ON RA, NO S/S OF DISTRESS OR SOB NOTED, BREATHING EVEN AND UNLABORED. IV ACCESS ON LEFT HAND #20G INTACT AND INFUSING D5NS @ 100 ML/HR. SAFETY MEASURES IN PLACE: CALL LIGHT WITHIN REACH, SIDE RAILS UP X 2, BED LOCKED IN LOWEST POSITION, BED ALARM ON. WILL CONTINUE TO MONITOR PATIENT
[2022-02-19 20:30] VITALS: BP 100/63
[2022-02-20] MEDS: CHLORDIAZEPOXIDE HCL 25 MG CAPSULE PO SCH ×3 (05:52→21:19)
[2022-02-20] MEDS: IV D5/ 0.9% NACL 1,000 ML IV SCH ×2 (05:52→16:39)
--- NOTE | 2022-02-20 06:51 | NUR ---
MS RN CLOSING NOTE PATIENT SLEEPING IN BED, EASILY AWAKENED, PT ALERT/ORIENTED X 3, PT UNKEPT. PATIENT STABLE ON RA, NO S/S OF DISTRESS OR SOB NOTED, BREATHING EVEN AND UNLABORED. IV ACCESS ON LEFT HAND #20G INTACT AND INFUSING D5NS @ 100 ML/HR. MEDICATIONS GIVEN ORDERED, PT NEEDS MET THROUGHOUT SHIFT. SAFETY MEASURES IN PLACE: CALL LIGHT WITHIN REACH, SIDE RAILS UP X 2, BED LOCKED IN LOWEST POSITION, BED ALARM ON. WILL ENDORSE TO DAYSHIFT NURSE FOR CONTINUITY OF CARE
--- NOTE | 2022-02-20 07:15 | NUR ---
MS RN OPENING NOTE RECEIVED PATIENT RESTING IN BED, ALERT/ORIENTED X 3. PATIENT STABLE ON RA, NO S/S OF DISTRESS OR SOB NOTED, BREATHING EVEN AND UNLABORED. IV ACCESS ON LEFT HAND #20G INTACT AND INFUSING D5NS @ 100 ML/HR. SAFETY MEASURES IN PLACE: CALL LIGHT WITHIN REACH, SIDE RAILS UP X 2, BED LOCKED IN LOWEST POSITION, BED ALARM ON. WILL CONTINUE TO MONITOR PATIENT
[2022-02-20 08:00] VITALS: BP 105/69
[2022-02-20] MEDS: LEVOTHYROXINE SODIUM 100 MCG TABLET PO SCH (08:24)
[2022-02-20] MEDS: LIOTHYRONINE SODIUM (25 MCG) 25 MCG TABLET PO SCH (08:25)
[2022-02-20] MEDS: MULTIVITAMINS,THERAGRAN 1 UDTAB TABLET PO SCH (08:25)
[2022-02-20] MEDS: THIAMINE HCL 100 MG TABLET PO SCH (08:25)
[2022-02-20] MEDS: GABAPENTIN 100 MG CAPSULE PO SCH ×3 (08:25→16:42)
[2022-02-20] MEDS: PANTOPRAZOLE 40 MG TABLET.DR PO SCH (08:38)
[2022-02-20 08:45] LABS: BASOPHILS # (AUTO) 0.1 K/uL (0.0-0.2); BASOPHILS % (AUTO) 1.6 % (0.0-2.0); EOSINOPHILS % (AUTO) 6.5 % (0.0-6.0); HEMATOCRIT 41 % (39-51); LYMPHOCYTES # (AUTO) 1.6 K/uL (0.8-4.8); LYMPHOCYTES % (AUTO) 26.2 % (20.0-44.0); MEAN CORPUSCULAR HGB CONC 34 g/dl (31.0-36.0); MEAN CORPUSCULAR VOLUME 107 fL (80-96); MONOCYTES # (AUTO) 0.4 K/uL (0.1-1.30); MONOCYTES % (AUTO) 7.1 % (2.0-12.0); NEUTROPHILS # (AUTO) 3.6 K/uL (1.8-8.9); NEUTROPHILS % (AUTO) 58.6 % (43.0-81.0); PLATELET COUNT (AUTO) 135 K/uL (150-450); RED BLOOD CELL COUNT(AUTO) 3.82 MIL/uL (4.5-6.0); WHITE BLOOD COUNT (AUTO) 6.1 K/uL (4.3-11.0)
[2022-02-20 09:02] LABS: CALCIUM, SERUM 8.8 mg/dL (8.5-10.1); CARBON DIOXIDE 34 mmol/L (21-32); CHLORIDE 100 mmol/L (98-107); CREATININE 1.1 mg/dL (0.6-1.3); GLUCOSE 96 mg/dL (74-106); PHOSPHORUS 4.3 mg/dL (2.5-4.9); POTASSIUM 4.3 mmol/L (3.5-5.1); SODIUM SERUM 137 mmol/L (136-145); UREA NITROGEN, BLOOD 12 mg/dL (7-18)
[2022-02-20] MEDS: FOLIC ACID 1 MG TABLET PO SCH (09:35)
[2022-02-20] MEDS: CEFTRIAXONE 2 G in IV D5W 100 ML IV SCH (09:38)
--- NOTE | 2022-02-20 10:24 | NUR ---
WOUND CARE CONSULT: PT PRESENTS WITH MULTIPLE AREAS OF SKIN DISCOLORATION AND LARGE SCAR FROM SACRUM TO RT BUTTOCK, PRESENT ON ADMISSION. PT STATES HAD SURGERY 30 YRS AGO. RECOMMENDATIONS MADE FOR SKIN PROTECTION. DISCUSSED WITH NURSING STAFF. IN AGREEMENT WITH PLAN OF CARE.
[2022-02-20 12:00] VITALS: BP 83/60
[2022-02-20 16:00] VITALS: BP 91/57
--- NOTE | 2022-02-20 18:27 | NUR ---
MS RN CLOSING NOTE PATIENT SLEEPING IN BED, EASILY AWAKENED, PT ALERT/ORIENTED X 3. PATIENT STABLE ON RA, NO S/S OF DISTRESS OR SOB NOTED, BREATHING EVEN AND UNLABORED. IV ACCESS ON LEFT HAND #20G INTACT AND INFUSING D5NS @ 100 ML/HR. MEDICATIONS GIVEN ORDERED, PT NEEDS MET THROUGHOUT SHIFT. SAFETY MEASURES IN PLACE: CALL LIGHT WITHIN REACH, SIDE RAILS UP X 2, BED LOCKED IN LOWEST POSITION, BED ALARM ON. WILL ENDORSE TO MATERIAL CONTROLLER NURSE FOR CONTINUITY OF CARE
--- NOTE | 2022-02-20 19:45 | NUR ---
MS RN OPENING NOTE PATIENT SLEEPING IN BED, EASILY AWAKENED, PT ALERT/ORIENTED X 3. PATIENT STABLE ON RA, NO S/S OF DISTRESS OR SOB NOTED, BREATHING EVEN AND UNLABORED. IV ACCESS ON LEFT HAND #20G INTACT AND INFUSING D5NS @ 100 ML/HR. SAFETY MEASURES IN PLACE: CALL LIGHT WITHIN REACH, SIDE RAILS UP X 2, BED LOCKED IN LOWEST POSITION, BED ALARM ON. WILL CONTINUE TO MONITOR PATIENT
[2022-02-20 20:00] VITALS: BP 91/60
[2022-02-21] MEDS: IV D5/ 0.9% NACL 1,000 ML IV SCH ×3 (02:25→21:03)
[2022-02-21] MEDS: CHLORDIAZEPOXIDE HCL 25 MG CAPSULE PO SCH ×3 (05:32→21:03)
--- NOTE | 2022-02-21 06:27 | NUR ---
MS RN CLOSING NOTE PATIENT SLEEPING IN BED, PT ALERT/ORIENTED X 3. PATIENT STABLE ON RA, NO S/S OF DISTRESS OR SOB NOTED, BREATHING EVEN AND UNLABORED. IV ACCESS ON LEFT HAND #20G INTACT AND INFUSING D5NS @ 100 ML/HR. NO SIGNIFICANT CHANGES THIS SHIFT, PT SLEPT WELL THROUGH THE NIGHT. MEDICATIONS GIVEN ORDERED, PT NEEDS MET. SAFETY MEASURES IN PLACE: CALL LIGHT WITHIN REACH, SIDE RAILS UP X 2, BED LOCKED IN LOWEST POSITION, BED ALARM ON. WILL ENDORSE TO DAYSHIFT NURSE FOR CONTINUITY OF CARE
[2022-02-21 07:00] VITALS: BP 97/75
--- NOTE | 2022-02-21 07:30 | NUR ---
MS RN OPENING NOTE RECEIVED PATIENT AWAKE IN BED. PATIENT IS ALERT AND ORIENTED X 3. STABLE ON RA, NO SOB NOTED, BREATHING EVEN AND UNLABORED. IV ACCESS ON LEFT HAND #20G INTACT AND INFUSING D5NS @ 100 ML/HR. ALL SAFETY MEASURES IN PLACE: CALL LIGHT WITHIN REACH, SIDE RAILS UP X 2, BED LOCKED IN LOWEST POSITION, BED ALARM ON. WILL CONTINUE TO MONITOR THE PATIENT CLOSELY.
[2022-02-21] MEDS: LEVOTHYROXINE SODIUM 100 MCG TABLET PO SCH (07:38)
[2022-02-21] MEDS: PANTOPRAZOLE 40 MG TABLET.DR PO SCH (07:38)
[2022-02-21] MEDS: LIOTHYRONINE SODIUM (25 MCG) 25 MCG TABLET PO SCH (07:43)
[2022-02-21] MEDS: THIAMINE HCL 100 MG TABLET PO SCH (08:45)
[2022-02-21] MEDS: FOLIC ACID 1 MG TABLET PO SCH (08:45)
[2022-02-21] MEDS: MULTIVITAMINS,THERAGRAN 1 UDTAB TABLET PO SCH (08:45)
[2022-02-21] MEDS: GABAPENTIN 100 MG CAPSULE PO SCH ×3 (08:45→17:01)
[2022-02-21] MEDS: CEFTRIAXONE 2 G in IV D5W 100 ML IV SCH (08:45)
--- NOTE | 2022-02-21 14:52 | NUR ---
RN NOTES CALLED [place] THE DIRECTOR OF SALES MARKETING [id number] PM AND INFORMED THAT THE FAMILY MEMBER JAYLIN RODRIGUEZ WANTS THE PATIENT TO BE TRANSFERED TO [facility] AND WANTS TO BE CALLED BEFORE ANY ACTION. HER PHONE NUMBER [phone]
[2022-02-21 16:00] VITALS: BP 119/71
--- NOTE | 2022-02-21 18:51 | NUR ---
MS RN CLOSING NOTE PATIENT AWAKE IN BED. PATIENT IS ALERT AND ORIENTED X 3. STABLE ON RA, NO SOB NOTED, BREATHING EVEN AND UNLABORED. IV ACCESS ON LEFT FOREARM #20G INTACT AND INFUSING D5NS @ 100 ML/HR. ALL DUE MEDS GIVEN ORDERED.ALL SAFETY MEASURES IN PLACE: CALL LIGHT WITHIN REACH, SIDE RAILS UP X 2, BED LOCKED IN LOWEST POSITION, BED ALARM ON. WILL ENDORSE FOR KELLY..
--- NOTE | 2022-02-21 19:30 | NUR ---
MS RN OPENING NOTE RECEIVED PATIENT AWAKE IN BED. A/O X 3 AND ABLE TO MAKE NEEDS KNOWN. STABLE ON RA, TOLERATING WELL. NO SOB OR S/S OF RESPIRATORY DISTRESS NOTED. BREATHING EVEN AND UNLABORED. IV ACCESS LFA #20G, INTACT AND PATENT, RUNNING D5NS @ 100 ML/HR. SAFETY PRECAUTIONS IN PLACE. BED IN LOWEST LOCKED POSITION, HOB ELEVATED, SIDE RAILS UP X2, AND CALL LIGHT AND TABLE WITHIN REACH. ALL NEEDS MET AT THIS TIME.
[2022-02-21 20:00] VITALS: BP_SYST 95; BP_SYST 96; BP_DIAS 63; BP_DIAS 73
[2022-02-22] MEDS: CHLORDIAZEPOXIDE HCL 25 MG CAPSULE PO SCH ×2 (05:36→13:08)
[2022-02-22] MEDS: IV D5/ 0.9% NACL 1,000 ML IV SCH ×2 (06:43→16:45)
--- NOTE | 2022-02-22 06:52 | NUR ---
MS RN CLOSING NOTE PATIENT AWAKE IN BED. A/O X 3 AND ABLE TO MAKE NEEDS KNOWN. STABLE ON RA, TOLERATING WELL. NO SOB OR S/S OF RESPIRATORY DISTRESS NOTED. BREATHING EVEN AND UNLABORED. IV ACCESS LFA #20G, INTACT AND PATENT, RUNNING D5NS @ 100 ML/HR. ALL DUE MEDS GIVEN ORDERED. REFUSING TO BE CHANGED THIS SHIFT, EXPLAINED IMPORTANCE OF BATHING, PT VERBALIZED UNDERSTANDING AND STILL REFUSED. SAFETY PRECAUTIONS IN PLACE AT ALL TIMES. BED IN LOWEST LOCKED POSITION, HOB ELEVATED, SIDE RAILS UP X2, AND CALL LIGHT AND TABLE WITHIN REACH. ALL NEEDS MET AT THIS TIME AND WILL ENDORSE TO ONCOMING NURSE FOR KELLY.
--- NOTE | 2022-02-22 07:30 | NUR ---
MS RN OPENING NOTE RECEIVED PATIENT AWAKE IN BED. PATIENT IS ALERT AND ORIENTED X 3. STABLE ON RA, NO SOB NOTED, BREATHING EVEN AND UNLABORED. IV ACCESS ON LEFT FOREARM #20G INTACT AND INFUSING D5NS @ 100 ML/HR. ALL SAFETY MEASURES IN PLACE: CALL LIGHT WITHIN REACH, SIDE RAILS UP X 2, BED LOCKED IN LOWEST POSITION, BED ALARM ON. WILL CONTINUE TO MONITOR THE PATIENT CLOSELY.
[2022-02-22] MEDS: LEVOTHYROXINE SODIUM 100 MCG TABLET PO SCH (07:53)
[2022-02-22] MEDS: LIOTHYRONINE SODIUM (25 MCG) 25 MCG TABLET PO SCH (07:53)
[2022-02-22] MEDS: PANTOPRAZOLE 40 MG TABLET.DR PO SCH (07:53)
[2022-02-22 08:00] VITALS: BP 124/79
[2022-02-22] MEDS: GABAPENTIN 100 MG CAPSULE PO SCH ×3 (08:27→16:03)
[2022-02-22] MEDS: FOLIC ACID 1 MG TABLET PO SCH (08:27)
[2022-02-22] MEDS: MULTIVITAMINS,THERAGRAN 1 UDTAB TABLET PO SCH (08:27)
[2022-02-22] MEDS: THIAMINE HCL 100 MG TABLET PO SCH (08:27)
[2022-02-22] MEDS: CEFTRIAXONE 2 G in IV D5W 100 ML IV SCH (08:27)
[2022-02-22 15:20] VITALS: BP 125/77
--- NOTE | 2022-02-22 19:28 | NUR ---
RN NOTES CALLED TOMMIE AT [facility] BY PHONE NUMBER [phone] AND GAVE REPORT AT 1712 PM. I EMPHASIZED PATIENT IS HIGH RISK FOR FALL FOR CLOSE MONITORING. SINCE PATIENT HAD MULTIPLE HISTORY OF FALLS.
--- NOTE | 2022-02-22 19:32 | NUR ---
DOCTOR OF NAPRAPATHY NOTES DISCHARGE PATIENT IN STABLE CONDITION WITH STABLE VITAL SIGNS. NO PAIN NOTED. NO SOB NOTED. NO DISTRESS NOTED. ALL THE BELONGINGS ACCOUNTED AND SIGNED FOR. A CELL PHONE WAS INCLUDED TOO. REMOVED IV . COVERED WITH DRY DRESSING . NO BLEEDING NOTED. DISCHARGE INSTRUCTIONS GIVEN TO THE RN AT THE FACILITY WITH THE NAME OF TOMMIE. ALL NEEDS ATTENDED. 2 MT TRANSFERRED THE PATIENT WITH THE JEFF TO THE REHAB [facility] . PATIENT LEFT HOSPITAL AT 1900. MD AND CHARGE NURSE AWARE OF THE DISCHARGE.
== END 2022-02-22 17:00 | DRG 896 ==
LOC: ER 20:05 → TRANSITION 02-19 02:29 → MED 02-19 07:49
PROVIDERS: ADMIT Registered Nurse
DX: F10.129 Alcohol abuse with intoxication, unspecified (principal); G92.8 Other toxic encephalopathy; N39.0 Urinary tract infection, site not specified; E87.20 Acidosis, unspecified; E03.9 Hypothyroidism, unspecified; Z20.822 Contact with and (suspected) exposure to COVID-19; Y90.6 Blood alcohol level of 120-199 mg/100 ml; R29.6 Repeated falls; G62.9 Polyneuropathy, unspecified; Z79.890 Hormone replacement therapy; Z79.899 Other long term (current) drug therapy; Z91.81 History of falling; R26.9 Unspecified abnormalities of gait and mobility; Z91.14 Patient's other noncompliance with medication regimen; Z68.30 Body mass index [BMI] 30.0-30.9, adult; E66.9 Obesity, unspecified; R74.01 Elevation of levels of liver transaminase levels; Z73.6 Limitation of activities due to disability; B95.5 Unspecified streptococcus as the cause of diseases classified elsewhere; W18.30XA Fall on same level, unspecified, initial encounter; Y92.009 Unspecified place in unspecified non-institutional (private) residence as the place of occurrence of the external cause
CPT/HCPCS: 36415; 80048-TC; 80076-TC; 81001; 83605-TC; 83735-TC; 84100-TC; 84439-TC; 84443-TC; 84481; 85025-TC; 87040-TC; 87086-TC; 87186-TC; 97112-TC; 97116-TC; 97530-TC; C9803; G0378; G0480; J0696; J2405; J3490; J7030; J7042; J7060

== ENCOUNTER 2022-03-12 14:09 | Inpatient (IN) | payer MEDICARE ==
[~2022-03-12] VITALS: Ht 182.9 cm; Wt 106.6 kg
--- NOTE | 2022-03-12 14:17 | NUR ---
[id number], SYNCOPAL EPISODE, MORE ALTERED THAN USUAL TODAY, WARM TO TOUCH, 75%RA, NRB 86%, LS=071. PT ATTACHED TO MONITOR, HR ELEVATED AND TEMP OF 102. 5. PT IS A&OX0. DR JEFFERSON AND RT AT BEDSIDE.
--- NOTE | 2022-03-12 14:21 | NUR ---
RODNEY Castellanos AC 20G. CULTURES AND LABS COLLECTED AND SENT
[2022-03-12] MEDS ORDERED: LEVO100T9 PO (14:30)
[2022-03-12] MEDS ORDERED: LACT1CAP71 PO (14:30)
[2022-03-12] MEDS ORDERED: CRAN425C6 PO (14:30)
[2022-03-12] MEDS ORDERED: XEROFORM TD (14:30)
[2022-03-12] MEDS ORDERED: FOLI0.4T6 PO (14:30)
[2022-03-12] MEDS ORDERED: GABA-532 PO (14:30)
[2022-03-12] MEDS ORDERED: LIOT25TA7 PO (14:30)
[2022-03-12] MEDS ORDERED: MULT-447 PO (14:30)
[2022-03-12] MEDS ORDERED: CRAN3875 PO (14:30)
[2022-03-12] MEDS ORDERED: THIA100T74 PO (14:30)
[2022-03-12] MEDS ORDERED: ACET-868 PO (14:30)
[2022-03-12] MEDS ORDERED: MAGN400O6 PO (14:30)
[2022-03-12] MEDS ORDERED: PANT40TA2 PO (14:30)
[2022-03-12] MEDS ORDERED: ASCO-352 PO (14:30)
--- NOTE | 2022-03-12 14:32 | NUR ---
COVID TEST COLLECTED AND SENT
[2022-03-12 14:40] LABS: ABG BASE EXCESS 4.1 mmol/L; ABG PCO2 40.4 mmHg (35.0-45.0); ABG PH 7.462 (7.350-7.450); ABG PO2 48.2 mmHg (75.0-100.0); COHb 0.7 % (0.5-1.5); MetHb 0.4 % (0.0-1.5); O2Hb 84.8 % (94.0-97.0); SITE, ABG Left Radial; VENT MODE, BG 15L NRB
[2022-03-12 14:56] LABS: BASOPHILS % (AUTO) 0.1 % (0.0-2.0); HEMATOCRIT 44 % (39-51); HEMOGLOBIN 14.9 g/dL (13.5-17.5); LYMPHOCYTES # (AUTO) 0.4 K/uL (0.8-4.8); LYMPHOCYTES % (AUTO) 4.4 % (20.0-44.0); MEAN CORPUSCULAR HGB CONC 34 g/dl (31.0-36.0); MEAN CORPUSCULAR VOLUME 104 fL (80-96); MONOCYTES # (AUTO) 0.9 K/uL (0.1-1.30); MONOCYTES % (AUTO) 9.4 % (2.0-12.0); NEUTROPHILS # (AUTO) 7.7 K/uL (1.8-8.9); NEUTROPHILS % (AUTO) 85.1 % (43.0-81.0); PLATELET COUNT (AUTO) 233 K/uL (150-450); WHITE BLOOD COUNT (AUTO) 9.1 K/uL (4.3-11.0)
--- NOTE | 2022-03-12 15:04 | NUR ---
URINE COLLECTED AND SENT
[2022-03-12 15:05] LABS: CALCIUM, SERUM 9.6 mg/dL (8.5-10.1); CARBON DIOXIDE 34 mmol/L (21-32); CHLORIDE 94 mmol/L (98-107); CREATININE 1.4 mg/dL (0.6-1.3); GLUCOSE 94 mg/dL (74-106); POTASSIUM 3.9 mmol/L (3.5-5.1); SODIUM SERUM 132 mmol/L (136-145); UREA NITROGEN, BLOOD 7 mg/dL (7-18)
[2022-03-12 15:11] LABS: ALANINE AMINOTRANSFERASE 18 U/L (12-78); ALBUMIN 3.4 g/dL (3.4-5.0); ALKALINE PHOSPHATASE 155 U/L (46-116); ASPARTATE AMINOTRANSFERASE 72 U/L (15-37); BILIRUBIN,DIRECT 1.1 mg/dL (0.0-0.2); BILIRUBIN,TOTAL 2.2 mg/dL (0.2-1.0); TOTAL PROTEIN, SERUM 8.1 g/dL (6.4-8.2)
[2022-03-12] MEDS ORDERED: IOHEXOL-350 100 ML VIAL IV ONE (15:43)
[2022-03-12] MEDS ORDERED: CT SWABBABLE VALVE TRANS SET 1 EA INFUS.SET MC ONE (15:44)
[2022-03-12] MEDS ORDERED: IV NS 0.9% 250 ML IV ONE (15:44)
[2022-03-12 15:50] LABS: BILIRUBIN,URINE NEGATIVE (NEGATIVE); COLOR,URINE YELLOW (YELLOW); LEUKOCYTE ESTERASE ,URINE NEGATIVE (NEGATIVE); NITRITE, URINE NEGATIVE (NEGATIVE); PH,URINE 8.5 (5.0-8.0); PROTEIN,URINE NEGATIVE (NEGATIVE); UGLUCOSE NEGATIVE (NEGATIVE); UROBILINOGEN,URINE >=8.0 EU/dL (0.2)
[2022-03-12] MEDS ORDERED: ACETAMINOPHEN 650 MG/SUPP.RECT RC ONE ×2 (15:53→16:00)
[2022-03-12 15:58] LABS: BAND % (MANUAL) 4 % (0.0-5.0); EOSINOPHILS % (MANUAL) 2 % (0-4); LYMPHOCYTES % (MANUAL) 4 % (16-48); MONOCYTES % (MANUAL) 4 % (0-11.0); NEUTROPHILS % (MANUAL) 86 (42-76)
[2022-03-12] MEDS ORDERED: CEFEPIME 1 GM in IV D5W 50 ML IV ONE (16:00)
[2022-03-12] MEDS ORDERED: VANCOMYCIN 1 GM in IV D5W 250 ML IV ONE (16:00)
[2022-03-12] MEDS ORDERED: PIPERACILLIN /TAZOBACTAM 3.375 G in IV D5W 50 ML IV ONE (16:00)
[2022-03-12] MEDS ORDERED: IV NS 0.9% 1,000 ML BAG IV ONE (16:00)
[2022-03-12 16:39] LABS: ABG BASE EXCESS 1.7 mmol/L; ABG PCO2 43.2 mmHg (35.0-45.0); ABG PH 7.409 (7.350-7.450); ABG PO2 51.6 mmHg (75.0-100.0); COHb 0.5 % (0.5-1.5); MetHb 0.3 % (0.0-1.5); O2Hb 85.5 % (94.0-97.0); SITE, ABG Left Radial
--- NOTE | 2022-03-12 17:02 | NUR ---
PT PLACED ON BIPAP BIPAP SETTINGS IPAP: 20 RATE: 18 I-TIME: 1.00 RISE: 3 EPAP: 10 O2: 100%
--- NOTE | 2022-03-12 20:30 | NUR ---
RECEIVED PT IN ER ROOM 5. RESTING IN BED WITH EYES CLOSED. RR EVEN AND NONLABORED, ON BIPAP. CONNECTED TO POX AND HEART MONITOR. VITAL SIGNS WITHIN LIMITS. WILL CONTINUE TO MONITOR.
[2022-03-12] MEDS ORDERED: Z GUARD REMEDY 4 OZ OINT TP PRN (21:30)
[2022-03-12] MEDS ORDERED: ONDANSETRON HCL/PF 4 MG/2 ML VIAL IVP PRN (21:30)
[2022-03-12] MEDS ORDERED: ACETAMINOPHEN 325 MG TABLET PO PRN (21:30)
[2022-03-12 22:11] LABS: THYROID STIMULATING HORMONE 158.546 uIU/mL (0.358-3.74)
[2022-03-12] MEDS ORDERED: VANCOMYCIN 1 GM in IV D5W 250ml IV ONE (23:00)
[2022-03-12] MEDS ORDERED: VANCOMYCIN 1 GM VIAL ONE (23:05)
[2022-03-13] VITALS (23 sets, daily range): BP systolic 100–152; BP diastolic 40–99
[2022-03-13 05:37] LABS: ABG BASE EXCESS 4.6 mmol/L; ABG PO2 74.9 mmHg (75.0-100.0); COHb 0.3 % (0.5-1.5); MetHb 0.4 % (0.0-1.5); O2Hb 95.4 % (94.0-97.0); SITE, ABG Right Radial; VENT MODE, BG ST 20/10 R18 100%
[2022-03-13] MEDS ORDERED: CEFEPIME 1 GM VIAL ONE (05:49)
[2022-03-13] MEDS: CEFEPIME 2 GM in IV D5W 100 ML IV SCH ×3 (06:00→20:40)
[2022-03-13 06:10] LABS: BASOPHILS % (AUTO) 0.6 % (0.0-2.0); EOSINOPHILS % (AUTO) 0.3 % (0.0-6.0); HEMATOCRIT 39 % (39-51); HEMOGLOBIN 13.5 g/dL (13.5-17.5); LYMPHOCYTES # (AUTO) 0.7 K/uL (0.8-4.8); LYMPHOCYTES % (AUTO) 10.7 % (20.0-44.0); MEAN CORPUSCULAR HGB CONC 35 g/dl (31.0-36.0); MEAN CORPUSCULAR VOLUME 104 fL (80-96); MONOCYTES % (AUTO) 16.2 % (2.0-12.0); NEUTROPHILS # (AUTO) 4.5 K/uL (1.8-8.9); NEUTROPHILS % (AUTO) 72.2 % (43.0-81.0); PLATELET COUNT (AUTO) 137 K/uL (150-450); RED BLOOD CELL COUNT(AUTO) 3.75 MIL/uL (4.5-6.0); WHITE BLOOD COUNT (AUTO) 6.2 K/uL (4.3-11.0)
[2022-03-13 06:32] LABS: ALBUMIN 2.6 g/dL (3.4-5.0); BILIRUBIN,TOTAL 1.7 mg/dL (0.2-1.0); CALCIUM, SERUM 8.6 mg/dL (8.5-10.1); CREATININE 1.1 mg/dL (0.6-1.3); MAGNESIUM 1.8 mg/dL (1.8-2.4); PHOSPHORUS 4.2 mg/dL (2.5-4.9); POTASSIUM 4.4 mmol/L (3.5-5.1)
--- NOTE | 2022-03-13 08:01 | NUR ---
ROOM 261
--- NOTE | 2022-03-13 08:08 | NUR ---
PT REPORT GIVEN TO BLANCA MORIN
--- NOTE | 2022-03-13 08:34 | NUR ---
PT TRANSFERRED TO 261 [facility]IA [facility] ACLS PROTOCOL. WARM HANDOFF GIVEN TO MIKEL
[2022-03-13] MEDS: PANTOPRAZOLE 40 MG VIAL IV SCH (09:46)
[2022-03-13] MEDS: HYDROCORTISONE SOD SUCCINATE 100 MG/2 ML VIAL IV SCH ×3 (10:37→20:40)
[2022-03-13] MEDS: VANCOMYCIN 1 GM in IV D5W 250ml IV SCH ×2 (10:49→22:26)
[2022-03-13] MEDS: LEVOTHYROXINE INJ 100 MCG VIAL IV SCH (11:25)
[2022-03-13 12:22] LABS: NEUTROPHILS % (MANUAL) 61 (42-76)
[2022-03-13 12:23] LABS: BAND % (MANUAL) 17 % (0.0-5.0); EOSINOPHILS % (MANUAL) 1 % (0-4); LYMPHOCYTES % (MANUAL) 5 % (16-48); MONOCYTES % (MANUAL) 16 % (0-11.0)
[2022-03-13] MEDS: IV NS 0.9% 250 ML IV PRN (14:23)
--- NOTE | 2022-03-13 18:00 | NUR ---
RN NOTES REPORT RECEIVED FROM MIKEL RIOS FOR CONTINUITY OF CARE .
--- NOTE | 2022-03-13 18:34 | NUR ---
RN NOTES PT ON 3L O2 N/C , O2 SAT WNL, NO DISTRESS NOTED, WILL ENDORSE TO AIR HOSE COUPLER NURSE FOR CONTINUITY OF CARE .
--- NOTE | 2022-03-13 20:26 | NUR ---
STATE SUPERINTENDENT OF SCHOOLS OPENING NOTE PT RECEIVED IN BED, AWAKE, A&O X2, CALM, COOPERATIVE. PT ON 3L NC WITH CURRENT O2SAT OF 92%; NOTED TO HAVE PRODUCTIVE COUGH; NO OTHER S/S OF RESP DISTRESS, NO SOB, NON-LABORED AND EQUAL BREATHING. PT ATTACHED TO BEDSIDE MONITOR, SR WITH HR OF 84. KENDALL MIDLINE INTACT AND PATENT, FLUSHES EASILY WITH NO RESISTANCE; NS TKO AT 10 ML/HR. BED IN LOWEST POSITION, CALL LIGHT WITHIN REACH, SIDE RAILS UP X3. WILL CONTINUE TO MONITOR THROUGHOUT THE NIGHT.
[2022-03-14] VITALS (57 sets, daily range): BP systolic 78–144; BP diastolic 46–102
[2022-03-14] MEDS: CEFEPIME 2 GM in IV D5W 100 ML IV SCH ×3 (04:40→21:08)
[2022-03-14] MEDS: HYDROCORTISONE SOD SUCCINATE 100 MG/2 ML VIAL IV SCH ×3 (04:40→21:08)
[2022-03-14 05:34] LABS: CALCIUM, SERUM 8.8 mg/dL (8.5-10.1); CREATININE 0.9 mg/dL (0.6-1.3); POTASSIUM 3.6 mmol/L (3.5-5.1)
--- NOTE | 2022-03-14 06:34 | NUR ---
STATE EDITOR CLOSING NOTE PT REMAINS IN BED, ASLEEP BUT EASILY AROUSABLE, A&O X2, CONFUSED. CONTINUES TO BE ON 3L NC WITH O2SAT LOW 88% AND HIGH 100% THROUGHOUT THE NIGHT; NO S/S OF RESP DISTRESS, NO SOB, NON-LABORED AND EQUAL BREATHING. ATTACHED TO EXTERNAL MONITOR SR WITH HR RANGING FROM 78-99 THROUGHOUT THE NIGHT. KENDALL MIDLINE 18G AND LEFT WRIST 20G INTACT AND PATENT; TKO RUNNING ON MIDLINE. ALL DUE MEDS ADMINISTERED DURING THE NIGHT. BED IN LOWEST POSITION, CALL LIGHT WITHIN REACH, SIDE RAILS UP X3. WILL ENDORSE TO DAYSHIFT NURSE TO CONTINUE CARE.
--- NOTE | 2022-03-14 08:00 | NUR ---
RN NOTES RECEIVED PATIENT A/A&O X2,AND CONFUSED, ON 3L NC WITH O2SAT 91% NO ACUTE RESPIRATORY DISTRESS, HR- HR 99 BEDSIDE MONITOR, PATIENT NPO FOR SE, INFUSING TKO 10ML/HR KENDALL ON MIDLINE. MEDICATIONS SCHEDULED ADMINISTERED, NEEDS ATTENDED AND ANTICIPATED. PATIENT ABLE TO TURN AND REPOSTION SELF IN THE BED, CALL LIGHT WITHIN TO REACH. WILL FOLLOW UP.
[2022-03-14] MEDS: PANTOPRAZOLE 40 MG VIAL IV SCH (09:37)
[2022-03-14] MEDS: LEVOTHYROXINE INJ 100 MCG VIAL IV SCH (09:43)
--- NOTE | 2022-03-14 10:00 | NUR ---
RN NOTES SWALLOW EVALUATION DONE VIA ME RN, PATIENT PASSED SE, GET NEW ORDER 2GNA DIET WELL CHAPPED. FAMILY NEXT TO THE BED. NOTIFIED CASE MANAGEMENT ABOUT FAMILY WANTS TO SPEAK ABOUT PATIENT D/C PLANING.
[2022-03-14] MEDS: VANCOMYCIN 1 GM in IV D5W 250ml IV SCH ×2 (11:02→23:00)
--- NOTE | 2022-03-14 12:30 | NUR ---
RN NOTES PATIENT A/O X3 WITH FORGETFULNESS, TOLERATED LUNCH 50% SELF. DUE MEDICATION ADMINISTERED.
--- NOTE | 2022-03-14 13:00 | NUR ---
RN NOTES GET CORTISOL AM LAB RESULT 193 , NOTIFIED Dr GARCIA, NO NEW ORDER AT THIS TIME.
[2022-03-14] MEDS: IV NS 0.9% 250 ML IV PRN ×2 (15:46→23:01)
--- NOTE | 2022-03-14 17:45 | NUR ---
RN NOTES TRANSFERRED PATIENT TO THE TELE UNIT ROOM 309 BED 1 WITH STABLE CONDITION, BEDSIDE REPORT GIVEN RN FOLLOW PLAN OF CARE. PATIENT TOLERATED DINNER 40% SELF.
--- NOTE | 2022-03-14 18:20 | NUR ---
SHOW HOST OR HOSTESS NOTES RECEIVED PATIENT FROM ICU , A/O X 3 , VERBALLY RESPONSIVE AND ABLE TO MAKE NEEDS KNOWN , WITH OXYGEN @3 LITERS , TOLERATED WELL . NO SOB OR DISTRESS NOTED , NO C/O OF PAIN AND DISCOMFORT , SKIN ASSESSMENT DONE AND NOTED WITH BILATERAL HEEL REDNESS , IV ACCESS KENDALL MIDLINE 18G , AND LEFT WRIST 20 G SL LOCK . SAFETY MEASURES PROVIDED , BED IN LOWEST POSITION , SIDE RAILS UP X 2 , CALL LIGHT WITHIN REACH , WILL CONTINUE TO MONITOR
[2022-03-15] VITALS (7 sets, daily range): BP systolic 107–147; BP diastolic 69–100
[2022-03-15] MEDS: CEFEPIME 2 GM in IV D5W 100 ML IV SCH ×3 (04:55→20:46)
[2022-03-15] MEDS: HYDROCORTISONE SOD SUCCINATE 100 MG/2 ML VIAL IV SCH ×3 (04:57→20:46)
[2022-03-15 07:16] LABS: CALCIUM, SERUM 8.8 mg/dL (8.5-10.1); CARBON DIOXIDE 28 mmol/L (21-32); CHLORIDE 98 mmol/L (98-107); CREATININE 0.8 mg/dL (0.6-1.3); GLUCOSE 134 mg/dL (74-106); POTASSIUM 3.3 mmol/L (3.5-5.1); SODIUM SERUM 133 mmol/L (136-145); UREA NITROGEN, BLOOD 16 mg/dL (7-18)
--- NOTE | 2022-03-15 07:17 | NUR ---
SEWER HEAD CLOSING NOTES PATIENT IS LYING ASLEEP IN BED. A/O X 3. VERBALLY RESPONSIVE AND ABLE TO MAKE NEEDS KNOWN, BREATHING WITH 02 AT 3LPM VIA NASAL CANNNULA, TOLERTAED WELL. NO SOB OR DISTRESS NOTED, NO C/O OF PAIN AND DISCOMFORT. IV ACCESS AT KENDALL MIDLINE #18, AND LEFT WRIST #20, SL. AM CARE DONE. DUE MEDS GIVEN. SAFETY MEASURES PROVIDED, BED IN LOWEST POSITION, SIDE RAILS UP X 2, CALL LIGHT WITHIN REACH, WILL ENDORSE TO NEXT SHIFT NOD.
--- NOTE | 2022-03-15 07:30 | NUR ---
CHEMICAL PROCESSING SUPERVISOR NOTES PT IN BED, ASLEEP, EASY TO AROUSE, ALERT AND ORIENTED, NO COMPLAINT OF PAIN OR ANY DISCOMFORT, RESPIRATIONS NORMAL, KEPT WARM AND COMFORTABLE IN BED.
--- NOTE | 2022-03-15 08:18 | NUR ---
WOUND CARE CONSULT: PT PRESENTS WITH RAISED PINK/RED AREA TO RT HEEL, SOME DISCOLORATION TO LEFT HEEL , AREAS OF EXCORIATION TO LOWER LEGS, REDNESS TO ABDOMINAL/GROIN FOLDS AND SCARRING FROM SACRUM TO RT BUTTOCK, ALL PRESENT ON ADMISSION. RECOMMENDATIONS MADE FOR SKIN PROTECTION. DISCUSSED WITH NURSING STAFF. PT NOTED TO BE INCONTINENT. DPM CONSULT CALLED TO DR HAMPAPUR. HIDALGO IN AGREEMENT WITH PLAN OF CARE. Addendum: 03/15/22 at 0826 by ILANA PAZ PT NOTED TO BE UNCOOPERATIVE AT TIMES. PT ABLE TO ASSIST WITH TURNING /REPOSITIONING BUT BECOMES ANGRY AND IRRITABLE. LOW AIRLOSS MATTRESS DISCONTINUED AT THIS TIME FOR SAFETY CONCERNS. DISCUSSED WITH CUT AND PRINT MACHINE OPERATOR AND NURSING STAFF.
[2022-03-15] MEDS: PANTOPRAZOLE 40 MG TABLET.DR PO SCH (09:30)
[2022-03-15] MEDS: CLOTRIMAZOLE 1% 15 GM TUBE TP SCH ×2 (11:31→19:00)
[2022-03-15] MEDS: VANCOMYCIN 1 GM in IV D5W 250ml IV SCH ×2 (11:32→22:32)
[2022-03-15] MEDS ORDERED: POTASSIUM CHLORIDE 20 MEQ TAB.PRT.SR PO SCH (12:00)
--- NOTE | 2022-03-15 19:00 | NUR ---
BOOT LINER MAKER NOTES PT IN BED, RESTING, NO COMPLAINT OF PAIN OR ANY DISCOMFORT, RESPIRATIONS NORMAL, CALL LIGHT WITHIN REACH, PM CARE PROVIDED, REPOSITIONED FOR COMFORT, ALL DUE MEDS GIVEN, ALL NEEDS ATTENDED.
--- NOTE | 2022-03-15 19:30 | NUR ---
RN OPENING NOTE RECEIVED PATIENT IN BED, AWAKE, ALERT AND ORIENTED X3. ABLE TO COMMUNICATE NEEDS WITH THE STAFFS. AFEBRILE AND NOT IN ANY FORM OF ACUTE DISTRESS. ON O2 INHALATION VIA NASAL CANNULA AT 3LPM. NO SOB/WHEEZING NOTED. WITH IV ACCESS ON RIGHT AC 18G AND LEFT WRIST 20G. SAFETY MEASURES IN PLACE. KEPT BED IN LOCKED AND IN LOW POSITION. SIDE RAILS UP X2. ADVISED TO USE THE CALL LIGHT WHEN IN NEED OF ASSISTANCE.
[2022-03-16] VITALS: BP 133/83
[2022-03-16] MEDS: HYDROCORTISONE SOD SUCCINATE 100 MG/2 ML VIAL IV SCH ×3 (04:33→20:18)
[2022-03-16] MEDS: CEFEPIME 2 GM in IV D5W 100 ML IV SCH ×3 (04:34→20:18)
[2022-03-16 05:12] VITALS: BP 164/78
--- NOTE | 2022-03-16 07:03 | NUR ---
RN CLOSING NOTE PATIENT IN BED, ASLEEP BUT EASY TO AROUSE AND RESPONDS TO VERBAL AND TACTILE STIMULI. ABLE TO COMMUNICATE NEEDS WITH THE STAFFS. AFEBRILE AND NOT IN ANY FORM OF ACUTE DISTRESS. ON O2 INHALATION VIA NASAL CANNULA AT 3LPM. NO SOB/WHEEZING NOTED. WITH IV ACCESS ON RIGHT AC 18G AND LEFT WRIST 20G. ON IV ATB, MONITORED FOR ANY ADVERSE REACTION. SAFETY MEASURES IN PLACE. KEPT BED IN LOCKED AND IN LOW POSITION. SIDE RAILS UP X2. ADVISED TO USE THE CALL LIGHT WHEN IN NEED OF ASSISTANCE. CONSTANT VISUAL CHECK DONE TO ENSURE SAFETY. ALL NURSING NEEDS ATTENDED.
--- NOTE | 2022-03-16 07:30 | NUR ---
RN OPENING NOTE RECEIVED PATIENT IN BED, AWAKE, ALERT AND ORIENTED X3. ABLE TO COMMUNICATE NEEDS WITH THE STAFFS. NO SOB OR DISTRESS NOTED . NO C/O OF PAIN AND DISCOMFORT NOTED . ON O2 INHALATION VIA NASAL CANNULA AT 3LPM AND TOLERATED WELL . . WITH IV ACCESS ON RIGHT AC 18G AND LEFT WRIST 20G. SAFETY MEASURES IN PLACE. KEPT BED IN LOCKED AND IN LOW POSITION. SIDE RAILS UP X2. CALL LIGHT WITHIN REACH WHEN IN NEED OF ASSISTANCE. WILL CONTINUE TO MONITOR
[2022-03-16 08:00] VITALS: BP 121/74
[2022-03-16 08:01] LABS: CARBON DIOXIDE 28 mmol/L (21-32); CHLORIDE 97 mmol/L (98-107); CREATININE 0.8 mg/dL (0.6-1.3); GLUCOSE 122 mg/dL (74-106); POTASSIUM 3.1 mmol/L (3.5-5.1); SODIUM SERUM 132 mmol/L (136-145); UREA NITROGEN, BLOOD 16 mg/dL (7-18)
[2022-03-16] MEDS: LEVOTHYROXINE SODIUM 100 MCG TABLET PO SCH (08:46)
[2022-03-16] MEDS: PANTOPRAZOLE 40 MG TABLET.DR PO SCH (08:47)
[2022-03-16] MEDS ORDERED: POTASSIUM CHLORIDE 20 MEQ TAB.PRT.SR PO ONE (11:00)
[2022-03-16] MEDS: VANCOMYCIN 1 GM in IV D5W 250ml IV SCH ×2 (11:13→22:47)
[2022-03-16] MEDS: CLOTRIMAZOLE 1% 15 GM TUBE TP SCH ×2 (11:34→17:21)
[2022-03-16 12:00] VITALS: BP 129/81
[2022-03-16 16:00] VITALS: BP 136/85
--- NOTE | 2022-03-16 18:41 | NUR ---
NEUROSURGICAL NURSE PRACTITIONER CLOSING NOTES PATIENT IN BED, AWAKE, ALERT AND ORIENTED X3. ABLE TO COMMUNICATE NEEDS WITH THE STAFFS. NO SOB OR DISTRESS NOTED . NO C/O OF PAIN AND DISCOMFORT NOTED . ALL DUE MEDS GIVEN ORDERED , NOTED WITH K LEVEL OF 3.1 AND ORDER OF K 40 MEQ GIVEN BY MOUTH , ON O2 INHALATION VIA NASAL CANNULA AT 3LPM WITH O2 SAT AT 92% AND TOLERATED WELL . WITH IV ACCESS ON RIGHT AC 18G AND LEFT WRIST 20G. SAFETY MEASURES IN PLACE. KEPT BED IN LOCKED AND IN LOW POSITION. SIDE RAILS UP X2. CALL LIGHT WITHIN REACH WHEN IN NEED OF ASSISTANCE. ENDORSED TO NEXT SHIFT
--- NOTE | 2022-03-16 19:30 | NUR ---
FINAL APPLICATION REVIEWER OPENING NOTE RECEIVED PATIENT IN BED, ASLEEP BUT EASY TO AROUSE AND RESPONSIVE. ABLE TO COMMUNICATE NEEDS WITH THE STAFFS. AFEBRILE AND NOT IN ANY FORM OF ACUTE DISTRESS. ON O2 INHALATION VIA NASAL CANNULA AT 3LPM. NO SOB/WHEEZING NOTED AT THIS TIME. WITH IV ACCESS ON RIGHT AC 18G AND LEFT WRIST 20G. SAFETY MEASURES IN PLACE. KEPT BED IN LOCKED AND IN LOW POSITION. SIDE RAILS UP X2. ADVISED TO USE THE CALL LIGHT WHEN IN NEED OF ASSISTANCE.
[2022-03-16 20:00] VITALS: BP 147/90
--- NOTE | 2022-03-16 22:45 | NUR ---
SCORE CALLER NOTE COLLECTED SPECIMEN VIA NASAL SWAB FOR COVID ANTIGEN TEST THAT WAS ORDERED BY MD FEW DAYS BACK AND WAS SENT TO LAB. AWAITING FOR RESULT.
--- NOTE | 2022-03-16 23:25 | NUR ---
CUSTOMER SERVICE AGENT NOTE RECEIVED A CALL FROM LAB C/O CHLOÉ AND SAID THAT PATIENT TESTED POSITIVE FOR COVID 19. NOTIFIED CHARGE NURSE AND HOSPITALIST IT SALES REPRESENTATIVE- BENJAMIN LOZANO. PER CHARGE NURSE, SUGGESTED THE ROOM MATE TO BE TESTED WELL FOR COVID. HOSPITALIST BENJAMIN GAVE AN ORDER. NOTED AND CARRIED OUT.
--- NOTE | 2022-03-17 00:22 | NUR ---
telephone lines repairer notes. received pts from [facility] report given by asad , pts is a/ox 4 on 3 liters of 02 via nc , no distress nosob noted , pts positive for rapid precautionary mesures maintained at all times due meds given as ordered call light within reach will continue to monitor pts.
--- NOTE | 2022-03-17 00:22 | NUR ---
RN CLOSING NOTE PATIENT WILL BE TRANSFERRED TO 106 FOR CONTINUITY OF CARE. REPORT GIVEN TO BLANCA ACOSTA. PATIENT WAS TRANSFERRED IN STABLE CONDITION WITH ALL HIS BELONGINGS. ENDORSED.
[2022-03-17] MEDS: CEFEPIME 2 GM in IV D5W 100 ML IV SCH ×3 (04:41→21:28)
[2022-03-17] MEDS: HYDROCORTISONE SOD SUCCINATE 100 MG/2 ML VIAL IV SCH ×3 (04:46→21:28)
--- NOTE | 2022-03-17 07:22 | NUR ---
RN NOTES RECEIVED PT ON BED, SLEEPING , ON 3L O2 N/C , O2 SAT WNL, ON TELE SR HR IN 60'S, IV SITE CDI , NO DISTESS NOTED, CONTINUE TO MONITOR .
--- NOTE | 2022-03-17 07:23 | NUR ---
telesales manager notes pts remain in bed stable on 3 liters of o2 , will endorse to rn day for continuity of care.
[2022-03-17 07:33] LABS: CALCIUM, SERUM 8.1 mg/dL (8.5-10.1); CARBON DIOXIDE 35 mmol/L (21-32); CHLORIDE 96 mmol/L (98-107); CREATININE 0.7 mg/dL (0.6-1.3); GLUCOSE 127 mg/dL (74-106); POTASSIUM 2.9 mmol/L (3.5-5.1); SODIUM SERUM 133 mmol/L (136-145); UREA NITROGEN, BLOOD 16 mg/dL (7-18)
[2022-03-17] MEDS: LEVOTHYROXINE SODIUM 100 MCG TABLET PO SCH (08:20)
[2022-03-17] MEDS: PANTOPRAZOLE 40 MG TABLET.DR PO SCH (08:20)
[2022-03-17] MEDS: CLOTRIMAZOLE 1% 15 GM TUBE TP SCH ×2 (08:21→17:53)
[2022-03-17] MEDS: VANCOMYCIN 1 GM in IV D5W 250ml IV SCH ×2 (10:41→23:31)
[2022-03-17] MEDS ORDERED: POTASSIUM CHLORIDE 20 MEQ POWDER PACKET PO ONE (11:00)
[2022-03-17] MEDS ORDERED: POTASSIUM CHLORIDE 20 MEQ TAB.PRT.SR PO ONE (11:00)
[2022-03-17 12:00] VITALS: BP 115/83
--- NOTE | 2022-03-17 12:00 | NUR ---
RN NOTES LEFT THE MESSAGE FOR PT FAMILY REGARDING CONSENT FOR THORACENTESES . NO RETURN CALL YET , DR ROCKWELL NOTIFIED
[2022-03-17] MEDS: DEXAMETHASONE SOD PHOSPHATE 10 MG/ML VIAL IV SCH (12:08)
--- NOTE | 2022-03-17 14:05 | NUR ---
consent pending. RN left multiple messages for family member to obtain consent for Thoracentesis.
--- NOTE | 2022-03-17 15:07 | NUR ---
Consent was signed by DR. Collier. Per radiologist, DR. De La Cruz Thoracentesis will be done at 16:00 after he is done with abscess drainage. RNPeyman was informed. Left a note for next shift US Tech
--- NOTE | 2022-03-17 15:30 | NUR ---
rn note received report from Mireya for continuity of care. patient on contact isolations due to Covid-19. pt is alert and oriented x3.able to make needs known. pt has r ua midline. iv intact, patent and flushing well. all safety measures in place. call light within reach. bed locked and in lowest positions. side rails up x2. bed alarm on
--- NOTE | 2022-03-17 15:40 | NUR ---
RN NOTES REPORT GIVEN TO EMEKA RIOS FOR CONTINUITY OF CARE .
[2022-03-17 16:00] VITALS: BP 145/88
--- NOTE | 2022-03-17 16:45 | NUR ---
thoracentesis completed at bedside removed 350 mL Addendum: 03/17/22 at 1941 by EMEKA MENCHACA RN consent signed in patient chart
--- NOTE | 2022-03-17 17:27 | NUR ---
thoracentesis sample to sent to lab, stat chest x ray pending result
--- NOTE | 2022-03-17 19:20 | NUR ---
RN NOTE PATIENT IN BED, AAO X 4, IN NO ACUTE DISTRESS, SATURATION AT 94% ON 3L VIA NC, SR ON THE MONITOR, HR IS 67. KENDALL MIDLINE PATENT AND FLUSHING WELL. PT ABLE TO USE URINAL, NOTED A CLEAR, YELLOW OUTPUT. SAFETY MEASURES IN PLACE. CALL LIGHT WITHIN REACH OF PATIENT. WILL CONT TO MONITOR AND REASSESS
--- NOTE | 2022-03-17 19:27 | NUR ---
rn closing note pt alert and oriented x4. pt 3l nc tolerating well @ 97%.pt on contact isolations due to positive covid result. pt has iv on right hand. iv intact, patent and flushing well. all safety measures in place.call light within reach. bed locked at lowest position side rails up x2. bed alarm on.caregiver at bedside. no new orders at this time. endorsed to shift commander rn for continuity of care.
[2022-03-17 20:00] VITALS: BP 133/95
[2022-03-18] VITALS: BP 122/73
[2022-03-18 04:00] VITALS: BP 121/84
[2022-03-18] MEDS: HYDROCORTISONE SOD SUCCINATE 100 MG/2 ML VIAL IV SCH ×3 (04:08→20:58)
[2022-03-18] MEDS: CEFEPIME 2 GM in IV D5W 100 ML IV SCH ×3 (04:08→21:01)
[2022-03-18 06:16] LABS: BASOPHILS % (AUTO) 0.1 % (0.0-2.0); EOSINOPHILS % (AUTO) 0.1 % (0.0-6.0); HEMATOCRIT 42 % (39-51); HEMOGLOBIN 14.3 g/dL (13.5-17.5); LYMPHOCYTES # (AUTO) 0.6 K/uL (0.8-4.8); LYMPHOCYTES % (AUTO) 10.7 % (20.0-44.0); MEAN CORPUSCULAR HGB CONC 34 g/dl (31.0-36.0); MEAN CORPUSCULAR VOLUME 102 fL (80-96); MONOCYTES # (AUTO) 0.5 K/uL (0.1-1.30); MONOCYTES % (AUTO) 8.5 % (2.0-12.0); NEUTROPHILS # (AUTO) 4.9 K/uL (1.8-8.9); NEUTROPHILS % (AUTO) 80.6 % (43.0-81.0); PLATELET COUNT (AUTO) 113 K/uL (150-450); RED BLOOD CELL COUNT(AUTO) 4.09 MIL/uL (4.5-6.0)
[2022-03-18 07:05] LABS: CALCIUM, SERUM 8.5 mg/dL (8.5-10.1); CREATININE 0.9 mg/dL (0.6-1.3); MAGNESIUM 1.9 mg/dL (1.8-2.4); PHOSPHORUS 2.4 mg/dL (2.5-4.9); POTASSIUM 3.5 mmol/L (3.5-5.1)
--- NOTE | 2022-03-18 07:05 | NUR ---
METAL RECLAMATION KETTLE TENDER OPENING NOTES: RECEIVED PATIENT IN BED, ASLEEP BUT EASILY AROUSES TO VOICE AND TACTILE STIMULI. PATIENT IS ALERT, ORIENTED X 4, NO SOB NOTED AND IS ON OXYGEN @ 3L/MIN VIA N/C. ON SR WITH HR OF 85 PER TELE MONITOR. IV ACCESS ON RIGHT UPPER ARM MIDLINE INTACT, FLUSHES WELL AND NO S/S INFILTRATION NOTED. CALL LIGHT WITHIN REACH AND INSTRUCTED PATIENT TO CALL FOR ASSISTANCE IF NEEDED. BED LOCKED AND IN LOWEST POSITION. ALL SAFETY MEASURES IN PLACE. WILL CONTINUE TO MONITOR PATIENT THROUGHOUT SHIFT.
[2022-03-18] MEDS: LEVOTHYROXINE SODIUM 100 MCG TABLET PO SCH (07:41)
[2022-03-18 08:00] VITALS: BP 135/88
[2022-03-18] MEDS: PANTOPRAZOLE 40 MG TABLET.DR PO SCH (08:10)
[2022-03-18] MEDS: DEXAMETHASONE SOD PHOSPHATE 10 MG/ML VIAL IV SCH (08:11)
[2022-03-18] MEDS: CLOTRIMAZOLE 1% 15 GM TUBE TP SCH ×2 (08:12→16:09)
--- NOTE | 2022-03-18 10:58 | NUR ---
SPOKE WITH BERNARDA AT THE PHARMACY AND INFORMED OF VANCO TROUGH OF 20 ON 03/17/22 AND OK TO GIVE VANCO ORDERED.
[2022-03-18] MEDS: VANCOMYCIN HCL 0.75 GM in IV D5W 250 ML IV SCH (11:05)
[2022-03-18 12:00] VITALS: BP 128/89
[2022-03-18] MEDS: IV NS 0.9% 250 ML IV PRN (12:17)
[2022-03-18] MEDS ORDERED: NEUTRA PHOS 1 POWD.PACKET PO ONE (14:00)
[2022-03-18 16:00] VITALS: BP 139/89
--- NOTE | 2022-03-18 18:47 | NUR ---
PIG FURNACE OPERATOR CLOSING NOTES: PATIENT IN BED AWAKE AND WATCHING TV AT THIS TIME. NO RESPIRATORY DISTRESS NOTED THROUGHOUT SHIFT. ON SR ON TELE MONITOR WITH HR OF 76. NO C/O PAIN OR DISCOMFORT NOTED THROUGHOUT SHIFT. BED LOCKED AND IN LOWEST POSITION. ALL NEEDS MET AND ANTICIPATED. CALL LIGHT WITHIN REACH. WILL ENDORSE TO NEXT SHIFT NURSE FOR CONTINUITY OF CARE.
[2022-03-18 20:00] VITALS: BP 121/76
--- NOTE | 2022-03-18 20:00 | NUR ---
RN NOTE PATIENT IN BED, AAO X 4, IN NO ACUTE DISTRESS, SATURATION AT 94% ON 3L VIA NC, SR ON THE MONITOR, HR IS 70 KENDALL MIDLINE PATENT AND FLUSHING WELL. PT ABLE TO USE URINAL, NOTED A CLEAR, YELLOW OUTPUT. SAFETY MEASURES IN PLACE. CALL LIGHT WITHIN REACH OF PATIENT. WILL CONT TO MONITOR AND REASSESS
[2022-03-19] VITALS: BP 133/96
[2022-03-19] MEDS: VANCOMYCIN HCL 0.75 GM in IV D5W 250 ML IV SCH ×3 (00:38→23:04)
[2022-03-19 04:00] VITALS: BP 121/80
[2022-03-19] MEDS: CEFEPIME 2 GM in IV D5W 100 ML IV SCH ×3 (04:14→21:13)
[2022-03-19] MEDS: HYDROCORTISONE SOD SUCCINATE 100 MG/2 ML VIAL IV SCH ×3 (04:23→21:13)
--- NOTE | 2022-03-19 06:47 | NUR ---
telecommunications professional notes pts remain in bed stable on 3 liters of o2 , will endorse to rn day for continuity of care.
[2022-03-19] MEDS: LEVOTHYROXINE SODIUM 100 MCG TABLET PO SCH (07:57)
[2022-03-19 08:00] VITALS: BP 138/87
[2022-03-19] MEDS: DEXAMETHASONE SOD PHOSPHATE 10 MG/ML VIAL IV SCH (08:42)
[2022-03-19] MEDS: PANTOPRAZOLE 40 MG TABLET.DR PO SCH (08:42)
[2022-03-19] MEDS: CLOTRIMAZOLE 1% 15 GM TUBE TP SCH ×2 (08:46→17:32)
[2022-03-19 09:45] LABS: CREATININE 0.8 mg/dL (0.6-1.3); POTASSIUM 3.2 mmol/L (3.5-5.1)
[2022-03-19 12:00] VITALS: BP 139/98
[2022-03-19 16:00] VITALS: BP 134/79
--- NOTE | 2022-03-19 19:44 | NUR ---
RN OPENING NOTES: RECEIVED PATIENT IN BED, SLEEPING AT THIS MOMENT. AWAKE, A/O X 4 AND RESPONSIVE. ON 3L/MIN VIA N/C AND PT TOLERATED WELL. IV ACCESS ON KNEDALL MIDLINE AND LT WRIST#20G INTACT AND PATENT. NO S/S OF INFILTRATIONS. PT HAS EPISODES OF CONTINENT AND INCONTINENT ON BOWEL AND BLADDER. NO C/O PAIN OR DISCOMFORT. NO ACUTE DISTRESS. ALL SAFETY MEASURES IN PLACE. BED IN LOWEST POSITION AND LOCKED. SIDE RAILS X3. PLACE CALL LIGHT WITHIN REACH. WILL CONT TO MONITOR.
[2022-03-19 20:00] VITALS: BP 134/75
[2022-03-20] VITALS: BP 123/73
[2022-03-20 04:00] VITALS: BP 136/84
[2022-03-20] MEDS: HYDROCORTISONE SOD SUCCINATE 100 MG/2 ML VIAL IV SCH ×3 (04:49→20:37)
[2022-03-20] MEDS: CEFEPIME 2 GM in IV D5W 100 ML IV SCH ×3 (04:49→20:37)
--- NOTE | 2022-03-20 06:35 | NUR ---
RN CLOSING NOTES: PATIENT IN BED, SLEEPING AT THIS MOMENT BUT EASILY AROUSABLE, A/O X 4 AND VERBALLY RESPONSIVE. ON 3L/MIN VIA N/C AND PT TOLERATED WELL. O2 SAT 94%. IV ACCESS ON KENDALL MIDLINE AND LT WRIST#20G INTACT AND PATENT. NO S/S OF INFILTRATIONS. NO C/O PAIN OR DISCOMFORT. NO ACUTE DISTRESS. ALL DUE MEDS GIVEN ORDERED. ALL SAFETY MEASURES IN PLACE. BED IN LOWEST POSITION AND LOCKED. SIDE RAILS X3. PLACE CALL LIGHT WITHIN REACH. WILL ENDORSE TO MORNING SHIFT NURSE.
[2022-03-20 07:17] LABS: CALCIUM, SERUM 7.9 mg/dL (8.5-10.1); CREATININE 0.7 mg/dL (0.6-1.3); POTASSIUM 3.3 mmol/L (3.5-5.1)
--- NOTE | 2022-03-20 07:49 | NUR ---
RN OPENING NOTES RECEIVED PT IN BED. PT A/0 X4. VERBALLY RESPONSIVE AND MAKE TO MAKE NEEDS KNOWN. PT ON 3 L NC TOLERATING WELL AT 96%. PT HAS IV ACCESS ON KENDALL MIDLINE.IV INTACT, PATENT AND FLUSHING WELL. NO COMPLAINTS OF PAIN/DISCOMFORT NOTED AT THIS TIME. ALL SAFETY MEASURES IN PLACE.BED LOCKED AT LOWEST POSITION. SIDE RAILS UP X2. CALL LIGHT WITHIN REACH. BED LOCKED AT LOWEST POSITION. BEDSIDE TABLE NEXT TO PATIENT. PT IS CONTACT ISOLATION TO DUE CURRENT POSITIVE COVID 19 RESULT
[2022-03-20 08:00] VITALS: BP 147/91
[2022-03-20] MEDS: DEXAMETHASONE SOD PHOSPHATE 10 MG/ML VIAL IV SCH (08:33)
[2022-03-20] MEDS: PANTOPRAZOLE 40 MG TABLET.DR PO SCH (08:33)
[2022-03-20] MEDS: LEVOTHYROXINE SODIUM 100 MCG TABLET PO SCH (08:33)
[2022-03-20] MEDS: CLOTRIMAZOLE 1% 15 GM TUBE TP SCH ×2 (09:48→17:13)
[2022-03-20] MEDS ORDERED: POTASSIUM CHLORIDE 20 MEQ TAB.PRT.SR PO ONE (10:30)
[2022-03-20] MEDS: VANCOMYCIN HCL 0.75 GM in IV D5W 250 ML IV SCH ×2 (11:48→23:44)
[2022-03-20 12:00] VITALS: BP 139/84
[2022-03-20] MEDS: IV NS 0.9% 250 ML IV PRN (13:17)
[2022-03-20 16:00] VITALS: BP 139/88
--- NOTE | 2022-03-20 19:51 | NUR ---
RN OPENING NOTES: RECEIVED PATIENT IN BED, AWAKE, A/O X 4 AND VERBALLY RESPONSIVE. ON 3L/MIN VIA N/C AND PT TOLERATED WELL. IV ACCESS ON KENDALL MIDLINE AND LT WRIST#20G INTACT AND PATENT. NO S/S OF INFILTRATIONS. EPISODES OF CONTINENT AND INCONTINENT ON BOWEL AND BLADDER. NO C/O PAIN OR DISCOMFORT. NO ACUTE DISTRESS. ALL SAFETY MEASURES IN PLACE. BED IN LOWEST POSITION AND LOCKED. SIDE RAILS X3. PLACE CALL LIGHT WITHIN REACH. WILL CONTINUE TO MONITOR.
--- NOTE | 2022-03-20 19:53 | NUR ---
RN CLOSING NOTES PT IN BED. PT A/0 X4. VERBALLY RESPONSIVE AND MAKE TO MAKE NEEDS KNOWN. PT ON SINUS RHYTHM.PT ON 3 L NC TOLERATING WELL AT 93%. PT HAS IV ACCESS ON KENDALL MIDLINE.IV INTACT, PATENT AND FLUSHING WELL. NO COMPLAINTS OF PAIN/DISCOMFORT NOTED AT THIS TIME. ALL SAFETY MEASURES IN PLACE.BED LOCKED AT LOWEST POSITION. SIDE RAILS UP X2. CALL LIGHT WITHIN REACH. . BEDSIDE TABLE NEXT TO PATIENT. BED ALARM ON. PT IS CONTACT ISOLATION TO DUE CURRENT POSITIVE COVID 19 RESULT.ENDORSED TO PLODDER OPERATOR RN FOR CONGRUITY OF CARE
[2022-03-20 20:00] VITALS: BP 146/96
[2022-03-21] VITALS: BP 145/73
[2022-03-21 04:00] VITALS: BP 122/75
[2022-03-21] MEDS: HYDROCORTISONE SOD SUCCINATE 100 MG/2 ML VIAL IV SCH ×2 (05:29→12:47)
[2022-03-21] MEDS: CEFEPIME 2 GM in IV D5W 100 ML IV SCH ×2 (05:30→12:47)
--- NOTE | 2022-03-21 06:44 | NUR ---
RN CLOSING NOTES: PATIENT IN BED, SLEEPING AT THIS MOMENT BUT EASILY AROUSABLE, A/O X 4 AND VERBALLY RESPONSIVE. ON 3L/MIN VIA N/C AND PT TOLERATED WELL. O2 SAT 95%. IV ACCESS ON KENDALL MIDLINE AND LT WRIST#20G INTACT AND PATENT. NO S/S OF INFILTRATIONS. NO C/O PAIN OR DISCOMFORT. NO ACUTE DISTRESS. ALL DUE MEDS GIVEN ORDERED. ALL SAFETY MEASURES IN PLACE. BED IN LOWEST POSITION AND LOCKED. SIDE RAILS X3. PLACE CALL LIGHT WITHIN REACH. WILL ENDORSE TO MORNING SHIFT NURSE.
[2022-03-21 07:07] LABS: CALCIUM, SERUM 8.1 mg/dL (8.5-10.1); CARBON DIOXIDE 32 mmol/L (21-32); CHLORIDE 99 mmol/L (98-107); CREATININE 0.7 mg/dL (0.6-1.3); GLUCOSE 120 mg/dL (74-106); POTASSIUM 3.5 mmol/L (3.5-5.1); SODIUM SERUM 136 mmol/L (136-145); UREA NITROGEN, BLOOD 24 mg/dL (7-18)
[2022-03-21] MEDS: LEVOTHYROXINE SODIUM 100 MCG TABLET PO SCH (07:30)
[2022-03-21 08:00] VITALS: BP 164/104
[2022-03-21] MEDS: DEXAMETHASONE SOD PHOSPHATE 10 MG/ML VIAL IV SCH (09:12)
[2022-03-21] MEDS: PANTOPRAZOLE 40 MG TABLET.DR PO SCH (09:12)
[2022-03-21] MEDS: CLOTRIMAZOLE 1% 15 GM TUBE TP SCH ×2 (09:12→17:22)
[2022-03-21] MEDS: VANCOMYCIN HCL 0.75 GM in IV D5W 250 ML IV SCH (11:23)
[2022-03-21 12:00] VITALS: BP 147/89
--- NOTE | 2022-03-21 12:15 | NUR ---
report called to rian rosario in [facility].
--- NOTE | 2022-03-21 14:47 | NUR ---
telemarketing sales representative note called to G[facility] danielle aware that will be transfer to sn[facility]
[2022-03-21 16:00] VITALS: BP 153/94
[2022-03-21] MEDS ORDERED: hydrALAZINE HCL IV 20 MG VIAL IV STA (18:06)
[2022-03-21 18:13] VITALS: BP 164/106
--- NOTE | 2022-03-21 18:40 | NUR ---
patient discharged to [facility] at this time via ambulance in the company of two attendants.
== END 2022-03-21 19:06 | DRG 871 ==
LOC: ER 14:12 → TRANSITION 17:43 → ICU 03-13 07:57 → TELE 03-14 17:44 → TELE1 03-17 00:34
PROVIDERS: ADMIT Nurse Practitioner Acute Care; ATTEND Internal Medicine
PROC: 5A09357 Assistance with Respiratory Ventilation, Less than 24 Consecutive Hours, Continuous Positive Airway Pressure (ICD-10-PCS; principal; 2022-03-12)
PROC: 0W993ZX Drainage of Right Pleural Cavity, Percutaneous Approach, Diagnostic (ICD-10-PCS; 2022-03-13)
PROC: 0W993ZZ Drainage of Right Pleural Cavity, Percutaneous Approach (ICD-10-PCS; 2022-03-17)
DX: A41.9 Sepsis, unspecified organism (principal); G93.41 Metabolic encephalopathy; J15.9 Unspecified bacterial pneumonia; J96.01 Acute respiratory failure with hypoxia; N17.0 Acute kidney failure with tubular necrosis; U07.1 COVID-19; E87.1 Hypo-osmolality and hyponatremia; E87.20 Acidosis, unspecified; J90 Pleural effusion, not elsewhere classified; J94.2 Hemothorax; J98.11 Atelectasis; K76.6 Portal hypertension; M48.54XA Collapsed vertebra, not elsewhere classified, thoracic region, initial encounter for fracture; E27.40 Unspecified adrenocortical insufficiency; K80.10 Calculus of gallbladder with chronic cholecystitis without obstruction; E88.09 Other disorders of plasma-protein metabolism, not elsewhere classified; F32.A Depression, unspecified; K21.9 Gastro-esophageal reflux disease without esophagitis; K44.9 Diaphragmatic hernia without obstruction or gangrene; K57.30 Diverticulosis of large intestine without perforation or abscess without bleeding; K70.31 Alcoholic cirrhosis of liver with ascites; Z87.440 Personal history of urinary (tract) infections; F10.10 Alcohol abuse, uncomplicated; E05.90 Thyrotoxicosis, unspecified without thyrotoxic crisis or storm; Z79.899 Other long term (current) drug therapy; E87.6 Hypokalemia
CPT/HCPCS: 36410; 36415; 36600; 71045-TC; 80048-TC; 80053-TC; 80061-TC; 80076-TC; 80202-TC; 82140-TC; 82533; 82803-TC; 83605-TC; 83735-TC; 83880; 84100-TC; 84155-TC; 84439-TC; 84443-TC; 84484-TC; 85025-TC; 85730-TC; 87040-TC; 87070-TC; 87075-TC; 87081-TC; 87086-TC; 87102-TC; 87116; 87206; 89051-TC; 92526; 92611-TC; 93307-TC; 94660; 94799-TC; 99082-TC; A4349; C9113; C9803; G0378; J0360; J0692; J1100; J1720; J2405; J2543; J3370; J7030; J7040; J7050; J7060; Q9967

== ENCOUNTER 2022-04-21 10:47 | Inpatient (IN) | payer MEDICARE ==
[~2022-04-21] VITALS: Ht 182.9 cm; Wt 87.5 kg
[~2022-04-21 10:47] MED LIST changes: +ACET-868 PO; -ACET325T53 PO; +ASCO-352 PO; +CRAN3875 PO; +CRAN425C6 PO; +FOLI0.4T6 PO; +GABA-532 PO; -GABA100C PO; -HYDR-3972 PO; +LACT1CAP71 PO; -LEVO100T PO; +LEVO100T9 PO; +MAGN400O6 PO; -MULT-24 PO; +MULT-447 PO; +PANT40TA2 PO; +THIA100T74 PO; -Thiamine HCL PO; +XEROFORM TD
--- NOTE | 2022-04-21 12:08 | NUR ---
NARROW FABRICS WEAVER AT BEDSIDE FOR BLOOD DRAW.
[2022-04-21 12:39] LABS: BASOPHILS % (AUTO) 0.2 % (0.0-2.0); EOSINOPHILS % (AUTO) 0.1 % (0.0-6.0); HEMATOCRIT 38 % (39-51); HEMOGLOBIN 12.6 g/dL (13.5-17.5); LYMPHOCYTES # (AUTO) 0.9 K/uL (0.8-4.8); LYMPHOCYTES % (AUTO) 3.8 % (20.0-44.0); MEAN CORPUSCULAR HGB CONC 33 g/dl (31.0-36.0); MEAN CORPUSCULAR VOLUME 96 fL (80-96); MONOCYTES # (AUTO) 3.3 K/uL (0.1-1.30); MONOCYTES % (AUTO) 14.5 % (2.0-12.0); NEUTROPHILS # (AUTO) 18.6 K/uL (1.8-8.9); NEUTROPHILS % (AUTO) 81.4 % (43.0-81.0); PLATELET COUNT (AUTO) 551 K/uL (150-450); RED BLOOD CELL COUNT(AUTO) 3.92 MIL/uL (4.5-6.0); WHITE BLOOD COUNT (AUTO) 22.8 K/uL (4.3-11.0)
[2022-04-21 13:11] LABS: ALANINE AMINOTRANSFERASE 31 U/L (12-78); ALBUMIN 1.5 g/dL (3.4-5.0); ALKALINE PHOSPHATASE 302 U/L (46-116); ASPARTATE AMINOTRANSFERASE 61 U/L (15-37); BILIRUBIN,TOTAL 1.5 mg/dL (0.2-1.0); CALCIUM, SERUM 9.2 mg/dL (8.5-10.1); CARBON DIOXIDE 33 mmol/L (21-32); CHLORIDE 96 mmol/L (98-107); GLUCOSE 119 mg/dL (74-106); POTASSIUM 4.9 mmol/L (3.5-5.1); SODIUM SERUM 132 mmol/L (136-145); TOTAL PROTEIN, SERUM 7.2 g/dL (6.4-8.2); UREA NITROGEN, BLOOD 27 mg/dL (7-18)
--- NOTE | 2022-04-21 13:32 | NUR ---
SCHOOL COORDINATOR AT BEDSIDE FOR US-GUIDED PARACENTESIS PROCEDURE
[2022-04-21] MEDS ORDERED: ONDA4TAB5 PO (13:38)
[2022-04-21] MEDS ORDERED: CLOT12CR TP (13:38)
[2022-04-21] MEDS ORDERED: TRAM50TA2 PO (13:38)
--- NOTE | 2022-04-21 14:21 | NUR ---
COVID SWAB COLLECTED AND SENT TO LAB
--- NOTE | 2022-04-21 14:25 | NUR ---
MOVE SHEET SUBMITTED.
[2022-04-21] MEDS ORDERED: CEFEPIME 1 GM in IV D5W 50 ML IV ONE (14:30)
--- NOTE | 2022-04-21 14:31 | NUR ---
[facility] CALLED TRACK WELDER PAGED.
[2022-04-21] MEDS ORDERED: IV NS 0.9% 250 ML IV ONE (14:32)
[2022-04-21] MEDS ORDERED: IOHEXOL-300 100 ML VIAL IV ONE (14:32)
[2022-04-21] MEDS ORDERED: CT SWABBABLE VALVE TRANS SET 1 EA INFUS.SET MC ONE (14:32)
[2022-04-21] MEDS ORDERED: CEFEPIME 1 GM VIAL ONE (14:34)
--- NOTE | 2022-04-21 14:38 | NUR ---
TAKEN TO CT VIA [facility].
[2022-04-21] MEDS ORDERED: VANCOMYCIN 1 GM in IV D5W 250 ML IV ONE (16:30)
--- NOTE | 2022-04-21 16:37 | NUR ---
CALLED PHARMACY FOR VANCOMYCIN MEDICATION
--- NOTE | 2022-04-21 16:37 | NUR ---
SLICER MACHINE OPERATOR AT BEDSIDE FOR BLOOD DRAW
--- NOTE | 2022-04-21 17:10 | NUR ---
DR WHITLEY AT BEDSIDE W/ PT
--- NOTE | 2022-04-21 17:14 | NUR ---
pt npo at this time per dr maier
--- NOTE | 2022-04-21 17:38 | NUR ---
SPOKE W/ SHERIF, RN INVESTMENT ASSOCIATE AT [facility]; PT LAST MEAL WAS BREAKFAST TODAY AT AROUND [phone]. HOUSE SUP MADE AWARE.
--- NOTE | 2022-04-21 17:48 | NUR ---
REPORT GIVEN TO SOFIE
[2022-04-21] MEDS ORDERED: ONDANSETRON HCL/PF 4 MG/2 ML VIAL IVP PRN (18:00)
[2022-04-21] MEDS ORDERED: ACETAMINOPHEN 325 MG TABLET PO PRN (18:00)
[2022-04-21] MEDS ORDERED: IV LR 1000 ML 1,000 ML IV ONE (18:00)
[2022-04-21] MEDS ORDERED: PIPERACILLIN /TAZOBACTAM 3.375 G in IV D5W 50 ML IV SCH (18:00)
[2022-04-21] MEDS ORDERED: ZOLPIDEM TARTRATE 5 MG TABLET PO PRN (18:00)
--- NOTE | 2022-04-21 18:21 | NUR ---
PT TRANSFERRED TO UNIT VIA GURNEY. WARM HANDOFF GIVEN TO RN ASSIGNED.
--- NOTE | 2022-04-21 18:30 | NUR ---
ms rn received a new admission, awake,alert,oriented x3,came in w/ distended abdomen, s/p paracenthesis w/ 2.9 liters out, will go for abd surgery at 7pm
[2022-04-21] MEDS ORDERED: LIDOCAINE 1% INJ 50 ML MDV IJ ONE (18:36)
[2022-04-21] MEDS ORDERED: BUPIVACAINE MPF 0.5% W/EPI INJ 30 ML VIAL ONE ×2 (18:36→18:59)
[2022-04-21] MEDS ORDERED: ROCURONIUM BROMIDE 50 MG/5 ML ONE (18:49)
[2022-04-21] MEDS ORDERED: FENTANYL PF 100MCG/2ML AMPUL ONE (18:49)
[2022-04-21] MEDS ORDERED: ANESTHESIA TRAY IN PYXIS 1 EA TRAY MC ONE (19:00)
[2022-04-21 19:22] LABS: BILIRUBIN,DIRECT 1.3 mg/dL (0.0-0.2)
[2022-04-21] MEDS ORDERED: PHYTONADIONE INJ 10 MG/1 ML AMPUL ONE (20:06)
[2022-04-21] MEDS ORDERED: ALBUMIN 5% 250 ML IV ONE ×2 (20:08→22:00)
[2022-04-21] MEDS ORDERED: ALBUMIN 25% 50 ML IV ONE ×5 (20:18→21:00)
[2022-04-21] MEDS ORDERED: FLUCONAZOLE IN NS 100 MG in PREMIX 1 EA IV SCH ×2 (21:00)
[2022-04-21] MEDS ORDERED: PROPOFOL 100 ML ONE ×2 (21:22→22:57)
[2022-04-21] MEDS ORDERED: BACITRACIN ZINC OINT PACKET 1 EA PACKET TP ONE (23:00)
[2022-04-21] MEDS: MEROPENEM 1 G in IV NS 0.9% 100 ML IV SCH (23:49)
[2022-04-22] VITALS (98 sets, daily range): BP systolic 84–132; BP diastolic 55–82
--- NOTE | 2022-04-22 | NUR ---
ICU/VP CARE MANAGEMENT PT CAME FROM SURGERY, REPORT RECEIVED FROM OR NURSE. ORDERS WERE TAKEN OFF AND NOTED.
--- NOTE | 2022-04-22 00:15 | NUR ---
PT RECEIVED FROM O.R. INTUBATED 7.0 @23CM AT THE LIP. PT PLACED ON VENT AC 12, 500, 100%. VENT ALARMS SET AND AUDIBLE. AMBU BAG AT BEDSIDE. CONTINUE TO MONITOR.
[2022-04-22 00:27] LABS: BASOPHILS # (AUTO) 0.2 K/uL (0.0-0.2); BASOPHILS % (AUTO) 0.8 % (0.0-2.0); EOSINOPHILS % (AUTO) 0.1 % (0.0-6.0); HEMATOCRIT 32 % (39-51); HEMOGLOBIN 10.3 g/dL (13.5-17.5); LYMPHOCYTES # (AUTO) 0.6 K/uL (0.8-4.8); LYMPHOCYTES % (AUTO) 2.3 % (20.0-44.0); MEAN CORPUSCULAR HGB CONC 33 g/dl (31.0-36.0); MEAN CORPUSCULAR VOLUME 94 fL (80-96); MONOCYTES # (AUTO) 2.1 K/uL (0.1-1.30); MONOCYTES % (AUTO) 8.3 % (2.0-12.0); NEUTROPHILS # (AUTO) 21.9 K/uL (1.8-8.9); NEUTROPHILS % (AUTO) 88.5 % (43.0-81.0); PLATELET COUNT (AUTO) 300 K/uL (150-450); RED BLOOD CELL COUNT(AUTO) 3.39 MIL/uL (4.5-6.0); WHITE BLOOD COUNT (AUTO) 24.8 K/uL (4.3-11.0)
--- NOTE | 2022-04-22 00:45 | NUR ---
ICU/COMPLIANCE INTERN STAT CVR WAS DONE SHOWED ETT TUBE IS IN CORRECT PLACEMENT ABOVE CRINA. MD AWARE ALSO HAD TO PUSH N/G TUBE DOWN 20CM TO BE IN STOMACH, THIS SHOULD BE IN CORRECT PLACE.
[2022-04-22] MEDS: FLUCONAZOLE IN NS 100 MG in PREMIX 1 EA IV SCH ×4 (00:59→22:32)
[2022-04-22] MEDS ORDERED: NOREPINEPHRINE 4 MG/4 ML AMPUL IV ONE (01:04)
[2022-04-22] MEDS: NOREPINEPHRINE 8 MG in IV NS 0.9% 242 ML IV PRN ×2 (01:12→18:05)
[2022-04-22] MEDS: PROPOFOL 100 ML IV PRN ×5 (01:14→23:54)
[2022-04-22 01:16] LABS: ABG BASE EXCESS -2.1 mmol/L; ABG PCO2 38.6 mmHg (35.0-45.0); ABG PH 7.386 (7.350-7.450); ABG PO2 104.9 mmHg (75.0-100.0); AaDO2 569.5 mmHg; COHb 0.3 % (0.5-1.5); MetHb 0.2 % (0.0-1.5); O2Hb 96.5 % (94.0-97.0); SITE, ABG Right Radial
--- NOTE | 2022-04-22 01:16 | NUR ---
ABG DONE. RN NOTIFIED WITH THE RESULT.
--- NOTE | 2022-04-22 03:00 | NUR ---
ICU/OIM ARCHITECT STAT CBC WAS DONE DUE TO BLOOD LOSS, IT SHOWED STABLE H/H, MD WAS SAID OK. NO NEW ORDERS. 0130-ABG WAS DONE SHOWED GOOD VENTILATION, NO NEED TO CALL MD. ABG IN AM 0145-LEVO WAS STARTED FOR LOW BP THROUGH A COUPLE OF CYCLES. WILL MONITOR THIS PT. 0200-SEDATION WAS PLACED ON THIS PT WELL RESTRAINTS WERE PLACED ON THIS PT, PT BEGAN TO MOVE AND WAKE UP. WILL MONITOR THIS PT.
--- NOTE | 2022-04-22 03:00 | NUR ---
ICU/INTEGRATED CIRCUIT IC LAYOUT DESIGNER EXTERNAL RELATIONS MANAGER MILO CALLED ABOUT CIPRO AND FLAGYL THAT WAS ORDERED AND ASKED TO GIVE OR NOT TO GIVE SHE SAID GIVE AND ASK ME IN THE MORNING
[2022-04-22] MEDS ORDERED: METRONIDAZOLE 500MG/ NS 100ML 100 ML IV ONE (03:49)
[2022-04-22] MEDS: METRONIDAZOLE 500MG/ NS 100ML 500 MG in PREMIX 1 EA IV SCH ×2 (03:52→12:10)
[2022-04-22] MEDS ORDERED: MEROPENEM 1 G VIAL IV ONE (03:57)
--- NOTE | 2022-04-22 04:00 | NUR ---
ICU/MANAGEMENT SERVICES TECHNICIAN CALLED THE KEY WORKER ABOUT ANTIBIOTICS OF CIPRO AND FLAGYL, PHARMACY DID NOT WANT TO OK TO GIVE THIS HOWEVER THE KEY WORKER SAID SHE DID NOT KNOW THE PT TO NOT LE THE PT HAVE THE ANTIBIOTICS. HAVE DAY SHIFT VERIFY IF OK TO GIVE ALL MEICATION. PHARMACY SAID OK TO GIVE THIS THEN.
--- NOTE | 2022-04-22 04:41 | NUR ---
ICU/CLINICAL TEAM LEAD CELL PHONE FOUND AND PLACED INTO ICU SAFE.
[2022-04-22] MEDS: VANCOMYCIN 1 GM in IV D5W 250ml IV SCH ×2 (04:56→18:03)
[2022-04-22] MEDS ORDERED: CIPROFLOXACIN IV RTU 400 MG in PREMIX 1 EA IV SCH (05:00)
--- NOTE | 2022-04-22 05:00 | NUR ---
ICU/HEAD PORTER UNABLE TO FIND INTERMIT SUCTION, PLACED ON LOW SUCTION. WILL PASS ON TO DAY SHIFT TO TURN INTO INTERMIT. SUCTION.
[2022-04-22] MEDS: MEROPENEM 1 G in IV NS 0.9% 100 ML IV SCH ×3 (05:02→21:20)
[2022-04-22 05:15] LABS: BASOPHILS # (AUTO) 0.1 K/uL (0.0-0.2); BASOPHILS % (AUTO) 0.3 % (0.0-2.0); HEMATOCRIT 33 % (39-51); HEMOGLOBIN 10.8 g/dL (13.5-17.5); LYMPHOCYTES # (AUTO) 0.7 K/uL (0.8-4.8); LYMPHOCYTES % (AUTO) 2.1 % (20.0-44.0); MEAN CORPUSCULAR HGB CONC 33 g/dl (31.0-36.0); MEAN CORPUSCULAR VOLUME 94 fL (80-96); MONOCYTES # (AUTO) 2.1 K/uL (0.1-1.30); NEUTROPHILS % (AUTO) 91.6 % (43.0-81.0); PLATELET COUNT (AUTO) 385 K/uL (150-450); RED BLOOD CELL COUNT(AUTO) 3.49 MIL/uL (4.5-6.0)
--- NOTE | 2022-04-22 05:30 | NUR ---
ICU/CRAP SHOOTER TITRATION OF LEVO WAS DONE SEE IV FLOW SHEET FOR TITRATIONS. WILL CONTINUE TO MONITOR THIS PT.
[2022-04-22 05:37] LABS: WHITE BLOOD COUNT (AUTO) 34.9 K/uL (4.3-11.0)
[2022-04-22 05:39] LABS: ALBUMIN 2.4 g/dL (3.4-5.0); BILIRUBIN,TOTAL 2.6 mg/dL (0.2-1.0); CALCIUM, SERUM 7.8 mg/dL (8.5-10.1); CREATININE 0.8 mg/dL (0.6-1.3); MAGNESIUM 1.8 mg/dL (1.8-2.4); PHOSPHORUS 4.7 mg/dL (2.5-4.9); POTASSIUM 4.5 mmol/L (3.5-5.1); TOTAL PROTEIN, SERUM 5.5 g/dL (6.4-8.2)
[2022-04-22] MEDS ORDERED: CIPROFLOXACIN IV RTU 200 ML IV ONE (06:05)
--- NOTE | 2022-04-22 06:49 | NUR ---
ICU/RN PEDIATRIC ICU WBC IS 35, PT IS MANY ANTIBIOTICS,
--- NOTE | 2022-04-22 07:02 | NUR ---
ICU/WOUND TREATMENT RN NURSING OFFICE IS AWARE THAT MIDLINE IS NEEDED FOR THIS PT.
--- NOTE | 2022-04-22 08:00 | NUR ---
RN NOTES RECEIVED PATIENT INTUBATED, TOLERATING SETTING WELL, NO ACUTE RESPIRATORY DISTRESS, SUCTION MOUTH CARE DONE, PATIENT HAS ABDOMINAL SURGERY, NICOLAS DRAINING SANGUINELY OUTPUT, COLOSTOMY BAG INTACT, ABDOMINAL DRESSING INTACT, PATIENT HAS GENERALIZED EDEMA, GET ORDER PICC LINE INSERTION, GET CONSENT VIA DAUGHTER. PATIENT HAS DIPRIVAN, AND LEVOPHED, TITRATING PER PROTOCOL. CORRAL DRAINING VIA GRAVITY. WILL FOLLOW UP.
--- NOTE | 2022-04-22 13:00 | NUR ---
R NOTES SON NEXT TO THE BED. PATIENT HAS NO ACUTE RESPIRATORY DISTRESS. ASSIST TURN AND REPOSITION Q 2 HR.
[2022-04-22] MEDS: IPRATROPIUM NEB FS 0.5 MG/2.5 ML AMPUL.NEB NEB SCH ×4 (13:04→23:34)
[2022-04-22] MEDS: IV LR 1000 ML 1,000 ML IV PRN (13:24)
[2022-04-22 14:09] LABS: BAND % (MANUAL) 6 % (0.0-5.0); LYMPHOCYTES % (MANUAL) 1 % (16-48); MONOCYTES % (MANUAL) 4 % (0-11.0); MYELOCYTES % 3 % (0-0); NEUTROPHILS % (MANUAL) 86 (42-76)
--- NOTE | 2022-04-22 18:30 | NUR ---
RN NOTES PM CARE DONE, SUCTION , MOUTH CARE DONE, INFUSING DIPRIVAN 25MCG/KG/MIN, LEVOPHED 0.04MCG/KG/MIN, AND LR @85 ML/HR ON KENDALL PICC LINE INTACT. URINE OUTPUT WAS 425ML. ENDORSED ONCOMING NURSE KELLY.
--- NOTE | 2022-04-22 19:10 | NUR ---
RN OPENING NOTES RECEIVED PATIENT ON BED, SEDATED, ORALLY INTUBATED SIZE 7, 23 CM BY THE LIP, WITH VENT SETTING AC-12, TV- 500, FIO2-80%, PEEP- OFF, AFEBRILE, NO S/S OF DISTRESS NOTED. NOTED WITH KENDALL PICC LINE. FLUSHED WITH NS. RUNNING WITH LR @ 85 ML/HR, PROPOFOL @ 25 MCG/KG/MIN, LEVO @ 0.4 MCG/KG/MIN. NOTED WITH NGT ON RIGHT NARE PATENT AND INTACT, VERIFIED PLACEMENT BY AUSCULTATION, CONNECTED TO INTERMITTENT SUCTION. S/P ABDOMINAL SURGERY FOR PERFORATED INTESTINE, DRESSING INTACT. NOTED WITH LEFT AND RIGHT LOWER ABDOMEN KRISTY- RODGERS DRAIN WITH SEROSANGUINEOUS DRAINAGE. CORRAL CATHETER PATENT INTACT DRAINING WITH CLEAR YELLOW URINE VIA GRAVITY. ALL SAFETY PRECAUTION PROVIDED. BED IN LOWEST POSITION, LOCKED. CALL LIGHT WITH IN REACH.
--- NOTE | 2022-04-22 20:16 | NUR ---
RECEIVED PT INTUBATED 7.0 ETT SECURED AT 23CM LIP LINE. NO RESP DISTRESS. PT TOLERATING VENT SETTINGS. VENT ALARMS SET AND AUDIBLE. CONTINUE TO MONITOR. Addendum: 04/22/22 at 2018 by GHADA CAR RT Amended: Links added.
[2022-04-23] VITALS (96 sets, daily range): BP systolic 84–132; BP diastolic 56–83
[2022-04-23] MEDS: IV LR 1000 ML 1,000 ML IV PRN (00:31)
[2022-04-23] MEDS: PROPOFOL 100 ML IV PRN ×5 (03:25→22:00)
[2022-04-23] MEDS: VANCOMYCIN 1 GM in IV D5W 250ml IV SCH ×2 (03:25→16:43)
[2022-04-23] MEDS: IPRATROPIUM NEB FS 0.5 MG/2.5 ML AMPUL.NEB NEB SCH ×6 (03:28→23:51)
[2022-04-23 05:19] LABS: CALCIUM, SERUM 7.7 mg/dL (8.5-10.1); CREATININE 0.7 mg/dL (0.6-1.3)
[2022-04-23] MEDS: MEROPENEM 1 G in IV NS 0.9% 100 ML IV SCH ×3 (05:34→20:37)
[2022-04-23 07:30] LABS: BASOPHILS # (AUTO) 0.1 K/uL (0.0-0.2); BASOPHILS % (AUTO) 0.3 % (0.0-2.0); EOSINOPHILS % (AUTO) 0.1 % (0.0-6.0); HEMATOCRIT 29 % (39-51); HEMOGLOBIN 9.5 g/dL (13.5-17.5); LYMPHOCYTES # (AUTO) 0.8 K/uL (0.8-4.8); LYMPHOCYTES % (AUTO) 2.3 % (20.0-44.0); MEAN CORPUSCULAR HGB CONC 33 g/dl (31.0-36.0); MEAN CORPUSCULAR VOLUME 94 fL (80-96); MONOCYTES # (AUTO) 2.3 K/uL (0.1-1.30); MONOCYTES % (AUTO) 6.6 % (2.0-12.0); NEUTROPHILS # (AUTO) 31.7 K/uL (1.8-8.9); NEUTROPHILS % (AUTO) 90.7 % (43.0-81.0); PLATELET COUNT (AUTO) 351 K/uL (150-450); RED BLOOD CELL COUNT(AUTO) 3.08 MIL/uL (4.5-6.0)
--- NOTE | 2022-04-23 07:44 | NUR ---
RN NOTES RECEIVED PATIENT RESUMED SEDATED, AND INTUBATED, TOLERATING ETT SETTING WELL, FIO2-94%, HR-72, AFEBRILE, NO S/S OF RESPIRATORY DISTRESS , KENDALL PICC LINE INTACT, INFUSING LR @ 85 ML/HR, PROPOFOL @ 25 MCG/KG/MIN, LEVOPHED @ 0.04 MCG/KG/MIN. NOTED WITH NGT ON RIGHT NARE PATENT AND INTACT, VERIFIED PLACEMENT BY AUSCULTATION, CONNECTED TO INTERMITTENT SUCTION. S/P ABDOMINAL SURGERY FOR PERFORATED INTESTINE, DRESSING INTACT. NOTED WITH LEFT AND RIGHT LOWER ABDOMEN NICOLAS'S DRAIN WITH SEROSANGUINEOUS DRAINAGE. CORRAL CATHETER PATENT INTACT DRAINING WITH CLEAR YELLOW URINE VIA GRAVITY. ASSIST TURN AND REPOSTION Q 2 HR, WILL FOLLOW UP.
--- NOTE | 2022-04-23 09:19 | NUR ---
RN NOTES GET VERBAL ORDER VIA Dr MOIZ HOFFMAN, ORDER TAKEN AND CARRIED OUT. RT AWARE OF.
[2022-04-23 11:08] LABS: ABG BASE EXCESS 2.4 mmol/L; ABG OXYGEN SATURATION 95.4 % (92.0-98.5); ABG PCO2 36.4 mmHg (35.0-45.0); ABG PH 7.472 (7.350-7.450); ABG PO2 78.4 mmHg (75.0-100.0); AaDO2 309.4 mmHg; COHb 0.3 % (0.5-1.5); MetHb 0.1 % (0.0-1.5); SITE, ABG Left Radial; VENT MODE, BG AC 12 500 60% +5
--- NOTE | 2022-04-23 11:11 | NUR ---
RN NOTES SEDATION VACATION AT THIS TIME PER Dr ROCKWELL'S ORDER, ABG DONE.
[2022-04-23] MEDS: ACETYLCYSTEINE 10% SOLN 400 MG/4 ML VIAL NEB SCH ×3 (11:19→23:51)
[2022-04-23] MEDS: IV NS 0.9% 250 ML IV PRN (12:26)
[2022-04-23] MEDS: IV D5/ 0.9% NACL 1,000 ML IV PRN ×2 (12:29→23:35)
--- NOTE | 2022-04-23 18:30 | NUR ---
RN NOTES PATIENT PM CARE DONE, DUE MEDICATION ADMINISTERED, NO ACUTE RESPIRATORY DISTRESS, PATIENT SEDATED DIPRIVAN 25MCG/KG/MIN, NEEDS ATTENDED AND ANTICIPATED. ENDORSED ONCOMING NURSE KELLY.
[2022-04-23 18:31] LABS: BAND % (MANUAL) 7 % (0.0-5.0); LYMPHOCYTES % (MANUAL) 4 % (16-48); METAMYELOCYTES % 2 % (0-0); MONOCYTES % (MANUAL) 5 % (0-11.0); NEUTROPHILS % (MANUAL) 82 (42-76)
--- NOTE | 2022-04-23 19:05 | NUR ---
RN OPENING NOTES RECEIVED PATIENT ON BED, SEDATED, ORALLY INTUBATED SIZE 7, 23 CM BY THE LIP, WITH VENT SETTING AC-12, TV- 500, FIO2-55%, PEEP- 5, AFEBRILE, NO S/S OF DISTRESS NOTED. NOTED WITH KENDALL PICC LINE. FLUSHED WITH NS. RUNNING WITH LR @ 85 ML/HR, PROPOFOL @ 25 MCG/KG/MIN, LEVO @ 0.3 MCG/KG/MIN. NOTED WITH NGT ON RIGHT NARE PATENT AND INTACT, VERIFIED PLACEMENT BY AUSCULTATION, CONNECTED TO INTERMITTENT SUCTION. S/P ABDOMINAL SURGERY FOR PERFORATED INTESTINE, DRESSING INTACT. NOTED WITH LEFT AND RIGHT LOWER ABDOMEN KRISTY- RODGERS DRAIN WITH SEROSANGUINEOUS DRAINAGE. CORRAL CATHETER PATENT INTACT DRAINING WITH CLEAR YELLOW URINE VIA GRAVITY. ALL SAFETY PRECAUTION PROVIDED. BED IN LOWEST POSITION, LOCKED. CALL LIGHT WITH IN REACH.
[2022-04-23] MEDS: NOREPINEPHRINE 8 MG in IV NS 0.9% 242 ML IV PRN (20:46)
[2022-04-23] MEDS: FLUCONAZOLE IN NS 100 MG in PREMIX 1 EA IV SCH ×2 (21:57)
[2022-04-24] VITALS (80 sets, daily range): BP systolic 81–136; BP diastolic 55–85
[2022-04-24] MEDS: IPRATROPIUM NEB FS 0.5 MG/2.5 ML AMPUL.NEB NEB SCH ×6 (03:12→23:36)
[2022-04-24] MEDS: PROPOFOL 100 ML IV PRN (03:40)
[2022-04-24] MEDS: VANCOMYCIN 1 GM in IV D5W 250ml IV SCH ×2 (03:46→15:27)
[2022-04-24] MEDS: MEROPENEM 1 G in IV NS 0.9% 100 ML IV SCH ×3 (05:09→20:36)
[2022-04-24 06:26] LABS: BASOPHILS # (AUTO) 0.1 K/uL (0.0-0.2); BASOPHILS % (AUTO) 0.4 % (0.0-2.0); EOSINOPHILS % (AUTO) 0.6 % (0.0-6.0); HEMATOCRIT 29 % (39-51); HEMOGLOBIN 9.7 g/dL (13.5-17.5); LYMPHOCYTES # (AUTO) 1.3 K/uL (0.8-4.8); LYMPHOCYTES % (AUTO) 4.4 % (20.0-44.0); MEAN CORPUSCULAR HGB CONC 34 g/dl (31.0-36.0); MEAN CORPUSCULAR VOLUME 92 fL (80-96); MONOCYTES # (AUTO) 2.2 K/uL (0.1-1.30); MONOCYTES % (AUTO) 7.4 % (2.0-12.0); NEUTROPHILS # (AUTO) 25.6 K/uL (1.8-8.9); NEUTROPHILS % (AUTO) 87.2 % (43.0-81.0); PLATELET COUNT (AUTO) 397 K/uL (150-450); RED BLOOD CELL COUNT(AUTO) 3.11 MIL/uL (4.5-6.0); WHITE BLOOD COUNT (AUTO) 29.3 K/uL (4.3-11.0)
[2022-04-24 06:36] LABS: CALCIUM, SERUM 8.2 mg/dL (8.5-10.1); CREATININE 0.6 mg/dL (0.6-1.3); PHOSPHORUS 2.6 mg/dL (2.5-4.9); POTASSIUM 3.6 mmol/L (3.5-5.1)
--- NOTE | 2022-04-24 07:30 | NUR ---
ICU/RN PT IS INTUBATED ON THE VENT AC JASPAL.FIO2-40%,SAT O2-98%.SEDATED WITH DIPRIVAN.ON LEVOPHED DRIP.AFEBRILE.NO PAIN REPORTED AT THIS TIME.PT IS STATUS POST EXP.LAP SURGERY FOR PERFORATED VISCUS.HAS NEW COLOSTOMY DRAINING WITH MINIMAL AMOUNT OF BROWN LIQUID STOOL TWO NICOLAS -LEFT AND RIGHT DRAINING WITH YELLOW FLUID.F/C IN PLACE DRAINING CLEVE URINE.BILATERAL SOFT WRIST RESTRAINS ON.SUCTION PROVIDED.REPOSITION FOR COMFORT.LABS REVIEW.MD AWARE.SUCTION PROVIDED.
[2022-04-24] MEDS ORDERED: DC PROPOFOL WHEN EXTUBATED XX PRN (08:00)
[2022-04-24 08:10] LABS: BAND % (MANUAL) 6 % (0.0-5.0); LYMPHOCYTES % (MANUAL) 8 % (16-48); METAMYELOCYTES % 2 % (0-0); MONOCYTES % (MANUAL) 6 % (0-11.0); MYELOCYTES % 2 % (0-0); NEUTROPHILS % (MANUAL) 74 (42-76); PROMYELOCYTES % 2 % (0-0)
[2022-04-24] MEDS: ACETYLCYSTEINE 10% SOLN 400 MG/4 ML VIAL NEB SCH ×3 (08:38→23:36)
--- NOTE | 2022-04-24 09:45 | NUR ---
RT PER DR ROCKWELL PATIENT WAS WEANED AND EXTUBATED. PLACED ON 5L NC MARJORIE WELL. NO SOB NOTED. AMBU BAG AT HOB Addendum: 04/24/22 at 1227 by KAMINI MULLER RT Amended: Links added.
[2022-04-24 09:46] LABS: ABG BASE EXCESS 1.5 mmol/L; ABG OXYGEN SATURATION 96.5 % (92.0-98.5); ABG PCO2 36.4 mmHg (35.0-45.0); ABG PH 7.458 (7.350-7.450); ABG PO2 87.4 mmHg (75.0-100.0); AaDO2 155.9 mmHg; COHb 0.3 % (0.5-1.5); MetHb 0.1 % (0.0-1.5); O2Hb 96.1 % (94.0-97.0); SITE, ABG Right Radial
--- NOTE | 2022-04-24 10:00 | NUR ---
ICU/RN PT IS EXTUBATED.ON N/C.AWAKE.ALERT.VERY WEAK. NO PAIN REPORTED AT THIS TIME.
[2022-04-24] MEDS: IV D5/ 0.9% NACL 1,000 ML IV PRN (13:16)
[2022-04-24] MEDS: NOREPINEPHRINE 8 MG in IV NS 0.9% 242 ML IV PRN (15:19)
[2022-04-24] MEDS: PANTOPRAZOLE 40 MG VIAL IV SCH (17:34)
[2022-04-24] MEDS: IV NS 0.9% 250 ML IV PRN (18:14)
--- NOTE | 2022-04-24 18:16 | NUR ---
ICU/RN PM CARE PROVIDED.DUE MEDS ARE GIVEN ORDERED. STILL ON LEVOPHED DRIP AND IV FLUIDS.F/C DRAINING WITH 250 ML OF URINE FOR 12 HRS.MD AWARE, NG TUBE CLAMPED.SWALLOW EVAL ORDERED.PT HAS PRODUCTIVE COUGH.ORAL SUCTION PROVIDED. GENERALIZED EDEMA PRESENT.CONTINUE MONITORING.
--- NOTE | 2022-04-24 19:39 | NUR ---
RN OPENING NOTES RECEIVED PT ON NC AT 2LPM, TOLERATING WELL SATING >95%, IV ACCESS ON KENDALL PICC WITH D5NS AT 85 ML/HR AND LEVOPHED DRIP. AFEBRILE. NO PAIN REPORTED AT THIS TIME. PT EXTUBATED IN AM, PT IS STATUS POST EXP.LAP SURGERY FOR PERFORATED VISCUS. HAS COLOSTOMY DRAINING WITH MINIMAL AMOUNT OF BROWN LIQUID STOOL TWO NICOLAS -LEFT AND RIGHT DRAINING WITH YELLOW FLUID. F/C IN PLACE DRAINING CLEVE URINE. REPOSITION FOR COMFORT. SAFETY MEASURES IN PLACED; CALL LIGHT WITHIN REACH, WILL CONTINUE TO MONITOR PT THROUGHOUT THE SHIFT.
[2022-04-24] MEDS: FLUCONAZOLE IN NS 100 MG in PREMIX 1 EA IV SCH ×2 (21:17)
[2022-04-25] VITALS (75 sets, daily range): BP systolic 85–113; BP diastolic 53–69
[2022-04-25] MEDS: IV D5/ 0.9% NACL 1,000 ML IV PRN ×2 (02:06→13:30)
[2022-04-25] MEDS: VANCOMYCIN 1 GM in IV D5W 250ml IV SCH ×2 (03:26→16:13)
[2022-04-25] MEDS: IPRATROPIUM NEB FS 0.5 MG/2.5 ML AMPUL.NEB NEB SCH ×5 (03:47→20:11)
[2022-04-25] MEDS: PANTOPRAZOLE 40 MG VIAL IV SCH ×2 (04:43→17:18)
[2022-04-25] MEDS: MEROPENEM 1 G in IV NS 0.9% 100 ML IV SCH ×3 (04:43→22:13)
[2022-04-25 05:07] LABS: BASOPHILS # (AUTO) 0.1 K/uL (0.0-0.2); BASOPHILS % (AUTO) 0.6 % (0.0-2.0); EOSINOPHILS % (AUTO) 0.6 % (0.0-6.0); HEMATOCRIT 29 % (39-51); HEMOGLOBIN 9.6 g/dL (13.5-17.5); LYMPHOCYTES % (AUTO) 4.7 % (20.0-44.0); MEAN CORPUSCULAR HGB CONC 33 g/dl (31.0-36.0); MEAN CORPUSCULAR VOLUME 93 fL (80-96); MONOCYTES # (AUTO) 1.8 K/uL (0.1-1.30); MONOCYTES % (AUTO) 8.5 % (2.0-12.0); NEUTROPHILS # (AUTO) 17.9 K/uL (1.8-8.9); NEUTROPHILS % (AUTO) 85.6 % (43.0-81.0); PLATELET COUNT (AUTO) 292 K/uL (150-450); RED BLOOD CELL COUNT(AUTO) 3.09 MIL/uL (4.5-6.0); WHITE BLOOD COUNT (AUTO) 20.9 K/uL (4.3-11.0)
[2022-04-25 05:24] LABS: CALCIUM, SERUM 7.8 mg/dL (8.5-10.1); CARBON DIOXIDE 32 mmol/L (21-32); CHLORIDE 107 mmol/L (98-107); CREATININE 0.5 mg/dL (0.6-1.3); GLUCOSE 95 mg/dL (74-106); MAGNESIUM 1.9 mg/dL (1.8-2.4); PHOSPHORUS 2.6 mg/dL (2.5-4.9); POTASSIUM 3.6 mmol/L (3.5-5.1); SODIUM SERUM 139 mmol/L (136-145); UREA NITROGEN, BLOOD 12 mg/dL (7-18)
--- NOTE | 2022-04-25 06:56 | NUR ---
RN CLOSING NOTES PT ON NC AT 2LPM, TOLERATING WELL SATING >95%, IV ACCESS ON KENDALL PICC WITH D5NS AT 85 ML/HR AND LEVOPHED DRIP. AFEBRILE. NO PAIN REPORTED AT THIS TIME. HAS COLOSTOMY DRAINING WITH MINIMAL AMOUNT OF BROWN LIQUID STOOL TWO NICOLAS -LEFT AND RIGHT DRAINING WITH YELLOW FLUID. F/C IN PLACE DRAINING CLEVE URINE. REPOSITION FOR COMFORT. ALL DUE MEDS GIVEN, KEPT DRY AND CLEAN, SAFETY MEASURES IN PLACED; CALL LIGHT WITHIN REACH, WILL ENDORSE TO AM SHIFT NURSE FOR CONTINUITY OF CARE.
--- NOTE | 2022-04-25 07:30 | NUR ---
OPENING NOTE: REPORT RECEIVED FROM ESHA RIOS. ORDERS AND LABS REVIEWED DURING REPORT. PT ALERT OX3, FOLLOWS COMMANDS. NICOLAS'S X2, EMPTIED Q2H. SWALLOW EVAL PENDING. PT CHECKED ON HOURLY AND PRN BY NURSING STAFF.
[2022-04-25] MEDS: ACETYLCYSTEINE 10% SOLN 400 MG/4 ML VIAL NEB SCH ×2 (08:05→15:34)
--- NOTE | 2022-04-25 08:08 | NUR ---
WOUND CARE CONSULT: PT PRESENTS WITH SACRAL SCARRING AND SOME EXCORIATED AREAS TO BUTTOCKS. (DIFFICULT ASSESSMENT DUE TO PT RESISTING BEING TURNED). LEFT HEEL INTACT DEEP TISSUE INJURY NOTED, PRESENT ON ADMISSION. THERE IS COLOSTOMY, ABDOMINAL SURGICAL DRESSING (DRY AND INTACT) WELL 2 J.P. BULBS. DEFER TO SURGEON FOR SURGICAL SITE. RECOMMENDATIONS MADE FOR SKIN PROTECTION. DISCUSSED WITH NURSING STAFF. DR SHAFER NOTIFIED OF DPM CONSULT. MD IN AGREEMENT WITH PLAN OF CARE. FIRST STEP LOW AIRLOSS MATTRESS IS ON ORDER.
[2022-04-25] MEDS ORDERED: Z GUARD REMEDY 4 OZ OINT TP PRN (08:30)
[2022-04-25 09:37] LABS: BAND % (MANUAL) 6 % (0.0-5.0); LYMPHOCYTES % (MANUAL) 8 % (16-48); METAMYELOCYTES % 1 % (0-0); MONOCYTES % (MANUAL) 5 % (0-11.0); MYELOCYTES % 1 % (0-0); NEUTROPHILS % (MANUAL) 79 (42-76)
[2022-04-25] MEDS: Z GUARD REMEDY 4 OZ OINT TP SCH (09:45)
[2022-04-25] MEDS: PROSOURCE / PROSTAT (PYXIS) 30 ML UDC PO SCH (17:00)
[2022-04-25] MEDS ORDERED: Magnesium 1GM/D5W 100ML PREMIX PIGGYBACK IV ONE (17:00)
[2022-04-25] MEDS: IV NS 0.9% 250 ML IV PRN (17:57)
[2022-04-25] MEDS: Magnesium 1GM/D5W 100ML PREMIX 100 ML IV SCH ×3 (17:58→20:09)
--- NOTE | 2022-04-25 18:36 | NUR ---
END OF SHIFT NOTE: PT STARTED ON A PUREE, THIN LIQUID DIET TODAY. PT ATE SMALL AMOUNT FOR LUNCH BUT MORE FOR DINNER WITHOUT DIFFICULTY. PT WAS AFRAID TO HAVE NG TUBE REMOVED. RN CONVINCED PT TO HAVE NG TUBE REMOVED SINCE HE DOESN'T NEED IT ANYMORE. PT FINALLY AGREED TO HAVE IT REMOVED AT 1800. TOTAL LEFT NICOLAS OUTPUT WAS 895, RIGHT NICOLAS OUTPUT 370. [address] GM MAG ORDERED BY DR GARCIA TO PROMOTE BM. PENDING RIGHT SIDE ULTRASOUND GUIDED THORACENTESIS, CONSENT IS ON CHART.
[2022-04-25] MEDS: NOREPINEPHRINE 8 MG in IV NS 0.9% 242 ML IV PRN (19:01)
--- NOTE | 2022-04-25 19:10 | NUR ---
RN OPENING NOTES RECEIVED PATIENT ON BED, AWAKE, ALERT/ORIENTED 2-3, ON NASAL CANULA @ 2LPM SATING AT 95%, RESPIRATORY EVEN AND UNLABORED, AFEBRILE, NO S/S OF DISTRESS NOTED. NOTED WITH KENDALL PICC LINE. FLUSHED WITH NS. RUNNING WITH D5 NS @ 85 ML/HR, LEVO @ 0.04 MCG/KG/MIN. S/P ABDOMINAL SURGERY FOR PERFORATED INTESTINE, DRESSING INTACT. NOTED WITH LEFT AND RIGHT LOWER ABDOMEN KRISTY- RODGERS DRAIN WITH SEROSANGUINEOUS DRAINAGE. CORRAL CATHETER PATENT INTACT DRAINING WITH CLEAR YELLOW URINE VIA GRAVITY. ALL SAFETY PRECAUTION PROVIDED. BED IN LOWEST POSITION, LOCKED. CALL LIGHT WITH IN REACH.
[2022-04-25] MEDS: FLUCONAZOLE IN NS 100 MG in PREMIX 1 EA IV SCH ×2 (22:54)
[2022-04-26] VITALS (97 sets, daily range): BP systolic 83–140; BP diastolic 53–73
[2022-04-26] MEDS: ACETYLCYSTEINE 10% SOLN 400 MG/4 ML VIAL NEB SCH ×4 (00:05→23:30)
[2022-04-26] MEDS: IPRATROPIUM NEB FS 0.5 MG/2.5 ML AMPUL.NEB NEB SCH ×8 (00:06→23:30)
[2022-04-26] MEDS: IV D5/ 0.9% NACL 1,000 ML IV PRN ×2 (01:50→13:58)
[2022-04-26 03:36] LABS: BASOPHILS # (AUTO) 0.1 K/uL (0.0-0.2); BASOPHILS % (AUTO) 0.2 % (0.0-2.0); EOSINOPHILS % (AUTO) 0.6 % (0.0-6.0); HEMATOCRIT 30 % (39-51); HEMOGLOBIN 9.9 g/dL (13.5-17.5); LYMPHOCYTES # (AUTO) 1.2 K/uL (0.8-4.8); LYMPHOCYTES % (AUTO) 4.6 % (20.0-44.0); MEAN CORPUSCULAR HGB CONC 33 g/dl (31.0-36.0); MEAN CORPUSCULAR VOLUME 93 fL (80-96); MONOCYTES # (AUTO) 2.2 K/uL (0.1-1.30); MONOCYTES % (AUTO) 8.5 % (2.0-12.0); NEUTROPHILS % (AUTO) 86.1 % (43.0-81.0); PLATELET COUNT (AUTO) 326 K/uL (150-450); RED BLOOD CELL COUNT(AUTO) 3.19 MIL/uL (4.5-6.0); WHITE BLOOD COUNT (AUTO) 25.6 K/uL (4.3-11.0)
[2022-04-26 04:01] LABS: BILIRUBIN,TOTAL 0.5 mg/dL (0.2-1.0); CALCIUM, SERUM 7.2 mg/dL (8.5-10.1); CREATININE 0.6 mg/dL (0.6-1.3); MAGNESIUM 2.2 mg/dL (1.8-2.4); PHOSPHORUS 2.3 mg/dL (2.5-4.9); POTASSIUM 3.5 mmol/L (3.5-5.1); TOTAL PROTEIN, SERUM 4.5 g/dL (6.4-8.2)
[2022-04-26 04:02] LABS: ALBUMIN 1.4 g/dL (3.4-5.0)
[2022-04-26] MEDS: VANCOMYCIN 1 GM in IV D5W 250ml IV SCH (04:04)
--- NOTE | 2022-04-26 05:10 | NUR ---
RN NOTES PATIENT REFUSED TO BE CLEAN, STATING "I WANT TO REST" EXPLAINED RISKS AND BENEFITS OFFER 3X STILL REFUSED. PATIENT IS ALERT/ORIENTED X 3.
[2022-04-26] MEDS: MEROPENEM 1 G in IV NS 0.9% 100 ML IV SCH ×3 (05:18→21:17)
[2022-04-26] MEDS: PANTOPRAZOLE 40 MG VIAL IV SCH (05:18)
--- NOTE | 2022-04-26 07:14 | NUR ---
RN OPENING NOTES RECEIVED REPORT FROM [facility] RN HEATHER. PATIENT IN BED ASLEEP BREATHING EVENLY AND UNLABORED ON 2 LITERS OF OXYGEN VIA NASAL CANULA, OXYGEN SATURATION RANGING 92-94%. BILATERAL NICOLAS DRAINS NOTED. IV ACCESS ON RIGHT UPPER ARM PICC LINE AND LEFT WRIST RUNNING FLUIDS ORDERED. PATIENT ON PEVOPHED RUNNING AT 0.06, WITH BLOOD PRESSURE AT 102/64. PATIENT HAS NEW COLOSTOMY, NO BOWEL MOVEMENT OF YET. SAFETY MEASURES IMPLEMENTED WILL CONTINUE PLAN OF CARE AND ANTICIPATE NEEDS.
[2022-04-26] MEDS: PANTOPRAZOLE 40 MG/PACK PACK GT SCH ×2 (08:24→21:17)
[2022-04-26] MEDS: Z GUARD REMEDY 4 OZ OINT TP SCH (09:03)
[2022-04-26] MEDS: PROSOURCE / PROSTAT (PYXIS) 30 ML UDC PO SCH ×3 (09:03→16:10)
[2022-04-26 09:35] LABS: BASOPHILS # (AUTO) 0.1 K/uL (0.0-0.2); BASOPHILS % (AUTO) 0.4 % (0.0-2.0); EOSINOPHILS % (AUTO) 0.7 % (0.0-6.0); HEMATOCRIT 30 % (39-51); HEMOGLOBIN 9.6 g/dL (13.5-17.5); LYMPHOCYTES # (AUTO) 1.1 K/uL (0.8-4.8); LYMPHOCYTES % (AUTO) 4.2 % (20.0-44.0); MEAN CORPUSCULAR HGB CONC 32 g/dl (31.0-36.0); MEAN CORPUSCULAR VOLUME 94 fL (80-96); MONOCYTES # (AUTO) 2.6 K/uL (0.1-1.30); MONOCYTES % (AUTO) 10.2 % (2.0-12.0); NEUTROPHILS # (AUTO) 21.7 K/uL (1.8-8.9); NEUTROPHILS % (AUTO) 84.5 % (43.0-81.0); PLATELET COUNT (AUTO) 335 K/uL (150-450); RED BLOOD CELL COUNT(AUTO) 3.18 MIL/uL (4.5-6.0); WHITE BLOOD COUNT (AUTO) 25.6 K/uL (4.3-11.0)
[2022-04-26] MEDS ORDERED: NEUTRA PHOS 1 POWD.PACKET PO ONE (12:00)
[2022-04-26] MEDS: MORPHINE SULFATE INJ 2 MG/ML DISP.SYRIN IV PRN (14:51)
[2022-04-26] MEDS: VANCOMYCIN 0.75 GM in IV D5W 250 ML IV SCH (16:10)
[2022-04-26] MEDS: NOREPINEPHRINE 8 MG in IV NS 0.9% 242 ML IV PRN (16:16)
--- NOTE | 2022-04-26 18:56 | NUR ---
HAND OFF REPORT GIVEN TO HEATHER RN FOR CONTINUATION OF CARE.
--- NOTE | 2022-04-26 19:05 | NUR ---
RN OPENING NOTES RECEIVED PATIENT ON BED, AWAKE, ALERT/ORIENTED 2-3, ON NASAL CANULA @ 2LPM SATING AT 95%, RESPIRATORY EVEN AND UNLABORED, AFEBRILE, NO S/S OF DISTRESS NOTED. NOTED WITH KENDALL PICC LINE. FLUSHED WITH NS. RUNNING WITH D5 NS @ 85 ML/HR, LEVO @ 0.05 MCG/KG/MIN. S/P ABDOMINAL SURGERY FOR PERFORATED INTESTINE, DRESSING INTACT. NOTED WITH LEFT AND RIGHT LOWER ABDOMEN KRISTY- RODGERS DRAIN WITH SEROSANGUINEOUS DRAINAGE. CORRAL CATHETER PATENT INTACT DRAINING WITH CLEAR YELLOW URINE VIA GRAVITY. ALL SAFETY PRECAUTION PROVIDED. BED IN LOWEST POSITION, LOCKED. CALL LIGHT WITH IN REACH.
[2022-04-26 20:15] LABS: BAND % (MANUAL) 6 % (0.0-5.0); EOSINOPHILS % (MANUAL) 1 % (0-4); LYMPHOCYTES % (MANUAL) 6 % (16-48); MONOCYTES % (MANUAL) 8 % (0-11.0); NEUTROPHILS % (MANUAL) 78 (42-76); REACTIVE LYMPHOCYTES 1 % (0-0)
[2022-04-26] MEDS: FLUCONAZOLE IN NS 100 MG in PREMIX 1 EA IV SCH ×2 (22:45)
--- NOTE | 2022-04-26 23:37 | NUR ---
pt refused breathing tx and CPT at this time, no sob or respiratory distress noted. rian bardales notified
[2022-04-27] VITALS (67 sets, daily range): BP systolic 69–116; BP diastolic 46–78
[2022-04-27] MEDS: MORPHINE SULFATE INJ 2 MG/ML DISP.SYRIN IV PRN ×2 (01:43→11:04)
[2022-04-27] MEDS: IV D5/ 0.9% NACL 1,000 ML IV PRN ×2 (02:34→15:00)
[2022-04-27] MEDS: IPRATROPIUM NEB FS 0.5 MG/2.5 ML AMPUL.NEB NEB SCH ×6 (03:30→23:28)
[2022-04-27] MEDS: VANCOMYCIN 0.75 GM in IV D5W 250 ML IV SCH ×2 (04:17→16:23)
[2022-04-27] MEDS: IV NS 0.9% 250 ML IV PRN (04:19)
[2022-04-27 04:43] LABS: BASOPHILS # (AUTO) 0.1 K/uL (0.0-0.2); BASOPHILS % (AUTO) 0.4 % (0.0-2.0); EOSINOPHILS % (AUTO) 0.8 % (0.0-6.0); HEMATOCRIT 29 % (39-51); HEMOGLOBIN 9.7 g/dL (13.5-17.5); LYMPHOCYTES # (AUTO) 1.3 K/uL (0.8-4.8); LYMPHOCYTES % (AUTO) 5.6 % (20.0-44.0); MEAN CORPUSCULAR HGB CONC 34 g/dl (31.0-36.0); MEAN CORPUSCULAR VOLUME 94 fL (80-96); MONOCYTES # (AUTO) 2.3 K/uL (0.1-1.30); MONOCYTES % (AUTO) 9.9 % (2.0-12.0); NEUTROPHILS # (AUTO) 19.2 K/uL (1.8-8.9); NEUTROPHILS % (AUTO) 83.3 % (43.0-81.0); PLATELET COUNT (AUTO) 295 K/uL (150-450); RED BLOOD CELL COUNT(AUTO) 3.05 MIL/uL (4.5-6.0)
[2022-04-27 05:02] LABS: CALCIUM, SERUM 6.9 mg/dL (8.5-10.1); CARBON DIOXIDE 28 mmol/L (21-32); CHLORIDE 107 mmol/L (98-107); CREATININE 0.6 mg/dL (0.6-1.3); GLUCOSE 108 mg/dL (74-106); PHOSPHORUS 2.5 mg/dL (2.5-4.9); POTASSIUM 3.5 mmol/L (3.5-5.1); SODIUM SERUM 137 mmol/L (136-145); UREA NITROGEN, BLOOD 11 mg/dL (7-18)
[2022-04-27] MEDS: MEROPENEM 1 G in IV NS 0.9% 100 ML IV SCH ×3 (05:43→20:32)
[2022-04-27] MEDS: ACETYLCYSTEINE 10% SOLN 400 MG/4 ML VIAL NEB SCH ×3 (07:13→23:28)
--- NOTE | 2022-04-27 07:15 | NUR ---
RN Opening NOte RECEIVED PATIENT FROM SOFTWARE TEST ENGINEER ON BED, ASLEEP, ALERT/ORIENTED 2-3, ON NASAL CANULA @ 2LPM SATING AT 95%, RESPIRATORY EVEN AND UNLABORED. NO S/S OF DISTRESS. HAS A KENADLL PICC LINE. RUNNING WITH D5 NS @ 85 ML/HR, LEVO @ 0.05 MCG/KG/MIN. S/P ABDOMINAL SURGERY FOR PERFORATED INTESTINE, DRESSING INTACT. NOTED WITH LEFT AND RIGHT LOWER ABDOMEN KRISTY- RODGERS DRAIN WITH SEROSANGUINEOUS DRAINAGE. CORRAL CATHETER PATENT INTACT DRAINING WITH CLEAR YELLOW URINE VIA GRAVITY. ALL SAFETY PRECAUTION PROVIDED. BED IN LOWEST POSITION, LOCKED. CALL LIGHT WITH IN REACH. WILL MONITOR THROUGHOUT DAY.
[2022-04-27] MEDS: PROSOURCE / PROSTAT (PYXIS) 30 ML UDC PO SCH ×3 (08:23→16:21)
[2022-04-27] MEDS: PANTOPRAZOLE 40 MG/PACK PACK GT SCH ×2 (08:24→20:37)
[2022-04-27] MEDS: Z GUARD REMEDY 4 OZ OINT TP SCH (08:24)
[2022-04-27] MEDS: ALBUMIN 25% 25 GM in PREMIX 1 EA IV SCH ×2 (11:15→20:53)
--- NOTE | 2022-04-27 11:30 | NUR ---
RN NOTE Patient underwent thoracentesis and 1 liter of fluid removed. Sample of fluid was sent to cytology as ordered. PT also came by and was unable to check patient due to patient's refusal.
--- NOTE | 2022-04-27 14:00 | NUR ---
RN note Patient taken down for CT scan of the chest/abdomen. Will review results when ready.
[2022-04-27] MEDS: NOREPINEPHRINE 8 MG in IV NS 0.9% 242 ML IV PRN (18:09)
--- NOTE | 2022-04-27 19:30 | NUR ---
RN OPENING NOTE RECEIVED PT IN BED, SLEEPING. CURRENTLY ON NC AT 2LPM, TOLERATING WELL, SATING @ >95%. NO S/SX OF ACUTE RESPI DISTRESS NOTED AT THIS TIME. BREATHING IS EVEN AND UNLABPORED. IV ACCESS ON KENDALL PICC WITH D5NS AT 85 ML/HR AND LEVOPHED DRIP. HAS COLOSTOMY DRAINING WITH MINIMAL AMOUNT OF BROWN LIQUID STOOL. TWO NICOLAS DRAIN -LEFT AND RIGHT DRAINING WITH YELLOW FLUID. CORRAL IN PLACE DRAINING CLEVE URINE BY GRAVITY. ALL SAFETY MEASURES IN PLACE: BED LOCKED IN LOW POSITION, BED ALARM ON, SR UP X 2. CALL LIGHT WITHIN REACH. WILL CONTINUE TO MONITOR.
--- NOTE | 2022-04-27 19:30 | NUR ---
RN CLOSING NOTE PT ON NC AT 2LPM, TOLERATING WELL SATING >95%, IV ACCESS ON KENDALL PICC WITH D5NS AT 85 ML/HR AND LEVOPHED DRIP. PATIENT HAS SECRETIONS FROM MOUTH AND WAS SUCTIONED. NO PAIN REPORTED AT THIS TIME. PATIENT REFUSED BREAKFAST BUT ATE A SMALL AMOUNT FOR LUNCH AND DINNER. HAS COLOSTOMY DRAINING WITH MINIMAL AMOUNT OF BROWN LIQUID STOOL. TWO NICOLAS DRAIN -LEFT AND RIGHT DRAINING WITH YELLOW FLUID. CORRAL IN PLACE DRAINING CLEVE URINE. REPOSITIONED FOR COMFORT. ALL DUE MEDS GIVEN, KEPT DRY AND CLEAN, SAFETY MEASURES IN PLACED. CALL LIGHT WITHIN REACH, WILL ENDORSE TO MONITORING ENGINEER NURSE FOR CONTINUITY OF CARE
[2022-04-27] MEDS: FLUCONAZOLE IN NS 100 MG in PREMIX 1 EA IV SCH ×2 (21:32)
[2022-04-28] VITALS (74 sets, daily range): BP systolic 75–148; BP diastolic 35–83
[2022-04-28] MEDS: VANCOMYCIN 0.75 GM in IV D5W 250 ML IV SCH ×2 (03:11→16:42)
[2022-04-28] MEDS: IPRATROPIUM NEB FS 0.5 MG/2.5 ML AMPUL.NEB NEB SCH ×6 (03:15→23:23)
[2022-04-28] MEDS: MEROPENEM 1 G in IV NS 0.9% 100 ML IV SCH ×3 (04:03→21:22)
[2022-04-28 05:05] LABS: BASOPHILS # (AUTO) 0.1 K/uL (0.0-0.2); BASOPHILS % (AUTO) 0.6 % (0.0-2.0); EOSINOPHILS % (AUTO) 0.9 % (0.0-6.0); HEMATOCRIT 26 % (39-51); HEMOGLOBIN 8.6 g/dL (13.5-17.5); LYMPHOCYTES % (AUTO) 5.5 % (20.0-44.0); MEAN CORPUSCULAR HGB CONC 34 g/dl (31.0-36.0); MEAN CORPUSCULAR VOLUME 93 fL (80-96); MONOCYTES # (AUTO) 1.8 K/uL (0.1-1.30); MONOCYTES % (AUTO) 9.3 % (2.0-12.0); NEUTROPHILS # (AUTO) 15.9 K/uL (1.8-8.9); NEUTROPHILS % (AUTO) 83.7 % (43.0-81.0); PLATELET COUNT (AUTO) 249 K/uL (150-450); RED BLOOD CELL COUNT(AUTO) 2.74 MIL/uL (4.5-6.0); WHITE BLOOD COUNT (AUTO) 18.9 K/uL (4.3-11.0)
[2022-04-28 05:22] LABS: CALCIUM, SERUM 7.6 mg/dL (8.5-10.1); CARBON DIOXIDE 29 mmol/L (21-32); CHLORIDE 106 mmol/L (98-107); CREATININE 0.5 mg/dL (0.6-1.3); GLUCOSE 151 mg/dL (74-106); POTASSIUM 3.5 mmol/L (3.5-5.1); SODIUM SERUM 138 mmol/L (136-145); UREA NITROGEN, BLOOD 8 mg/dL (7-18)
--- NOTE | 2022-04-28 05:37 | NUR ---
RN NOTE PM CARE DONE. TURNED AND REPOSITIONED. COLOSTOMY BAG CHANGED.
--- NOTE | 2022-04-28 06:11 | NUR ---
RN NOTE NO SIGNIFICANT CHANGE T/O THE NIGHT. ALL DUE MEDS GIVEN. NEEDS ATTENDED TO. WILL ENDORSE TO AM SHIFT NURSE FOR KELLY.
--- NOTE | 2022-04-28 07:00 | NUR ---
RN OPENING NOTE RECEIVED PT FROM NIGHTSHIFT IN BED AND SLEEPING. CURRENTLY ON NC AT 2L, TOLERATING WELL, SATING >95%. NO S/SX OF ACUTE RESPIRATORY DISTRESS NOTED AT THIS TIME. BREATHING IS EVEN AND UNLABORED. IV ACCESS ON KENDALL PICC WITH D5NS AT 85 ML/HR AND LEVOPHED DRIP. HAS COLOSTOMY DRAINING WITH MINIMAL AMOUNT OF BROWN LIQUID STOOL. TWO NICOLAS DRAIN -LEFT AND RIGHT, DRAINING WITH YELLOW FLUID. CORRAL IN PLACE DRAINING CLEVE URINE BY GRAVITY. ALL SAFETY MEASURES IN PLACE: BED LOCKED IN LOW POSITION, BED ALARM ON, SR UP X 2. CALL LIGHT WITHIN REACH. WILL CONTINUE TO MONITOR THROUGHOUT DAY.
[2022-04-28] MEDS: ACETYLCYSTEINE 10% SOLN 400 MG/4 ML VIAL NEB SCH ×3 (07:33→23:23)
[2022-04-28 07:36] LABS: ALBUMIN 1.7 g/dL (3.4-5.0); BILIRUBIN,DIRECT 0.3 mg/dL (0.0-0.2); BILIRUBIN,TOTAL 0.5 mg/dL (0.2-1.0); TOTAL PROTEIN, SERUM 4.5 g/dL (6.4-8.2)
[2022-04-28] MEDS: IV D5/ 0.9% NACL 1,000 ML IV PRN ×2 (07:54→21:25)
[2022-04-28] MEDS: Z GUARD REMEDY 4 OZ OINT TP SCH ×2 (09:08→16:42)
[2022-04-28] MEDS: PROSOURCE / PROSTAT (PYXIS) 30 ML UDC PO SCH ×3 (09:08→17:13)
[2022-04-28] MEDS: PANTOPRAZOLE 40 MG VIAL IV SCH ×2 (09:52→21:23)
--- NOTE | 2022-04-28 10:56 | NUR ---
RN note PT came by for patient. Patient refused once again so PT said they will stop by later.
[2022-04-28] MEDS: NOREPINEPHRINE 8 MG in IV NS 0.9% 242 ML IV PRN (14:50)
--- NOTE | 2022-04-28 19:12 | NUR ---
RN CLOSING NOTE PATIENT ON NC AT 2LPM, TOLERATING WELL SATING >97%, IV ACCESS ON KENDALL PICC WITH D5NS AT 85 ML/HR AND LEVOPHED DRIP AT 0.05. PATIENT HAS SECRETIONS FROM MOUTH AND WAS SUCTIONED. NO PAIN REPORTED AT THIS TIME. PATIENT ATE MORE TODAY DURING EACH MEAL. HAS COLOSTOMY DRAINING WITH MINIMAL AMOUNT OF BROWN LIQUID STOOL. TWO NICOLAS DRAIN -LEFT AND RIGHT- DRAINING WITH YELLOW FLUID. CORRAL IN PLACE DRAINING CLEVE URINE. REPOSITIONED FOR COMFORT. ALL DUE MEDS GIVEN, KEPT DRY AND CLEAN, SAFETY MEASURES IN PLACED. CALL LIGHT WITHIN REACH. ENDORSED TO CLERICAL ADMINISTRATOR NURSE FOR CONTINUITY OF CARE
--- NOTE | 2022-04-28 20:00 | NUR ---
ICU/RN: PT NONCOMPLIANT WITH TURNING SCHEDULE. RISK AND BENEFITS EXPLAINED. PT IS DISENGAGED IN PT EDUCATION.
[2022-04-28] MEDS: FLUCONAZOLE IN NS 100 MG in PREMIX 1 EA IV SCH ×2 (22:02)
[2022-04-29] VITALS (96 sets, daily range): BP systolic 81–130; BP diastolic 42–76
[2022-04-29] MEDS: IPRATROPIUM NEB FS 0.5 MG/2.5 ML AMPUL.NEB NEB SCH ×6 (03:10→23:30)
[2022-04-29] MEDS: VANCOMYCIN 0.75 GM in IV D5W 250 ML IV SCH ×2 (03:43→15:57)
--- NOTE | 2022-04-29 04:00 | NUR ---
ICU/RN: SURGICAL SITE DRESSING NOTED TO BE SOILED. OLD DRESSING REMOVED. VIPIN INTACT. CLEANSED WITH NORMAL SALINE NEW DRESSING APPLIED. PT TOLERATED WELL.
[2022-04-29] MEDS: MEROPENEM 1 G in IV NS 0.9% 100 ML IV SCH ×3 (05:01→21:22)
[2022-04-29 05:35] LABS: ALANINE AMINOTRANSFERASE 9 U/L (12-78); ALBUMIN 1.5 g/dL (3.4-5.0); ALKALINE PHOSPHATASE 160 U/L (46-116); ASPARTATE AMINOTRANSFERASE 25 U/L (15-37); BILIRUBIN,TOTAL 0.7 mg/dL (0.2-1.0); CALCIUM, SERUM 7.2 mg/dL (8.5-10.1); CARBON DIOXIDE 29 mmol/L (21-32); CHLORIDE 106 mmol/L (98-107); CREATININE 0.5 mg/dL (0.6-1.3); GLUCOSE 113 mg/dL (74-106); POTASSIUM 3.6 mmol/L (3.5-5.1); SODIUM SERUM 138 mmol/L (136-145); TOTAL PROTEIN, SERUM 4.5 g/dL (6.4-8.2); UREA NITROGEN, BLOOD 8 mg/dL (7-18)
--- NOTE | 2022-04-29 07:15 | NUR ---
RN OPENING NOTES RECEIVED REPORT FROM [facility] RN AMINATA. PATIENT IN BED ALERT AND ORIENTED TIMES 3. BREATHING EVENLY AND UNLABORED ON 2 LITERS NASAL CANULA WITH OXYGEN SATURATION AT 97 PERCENT. READING SINUS RHYTHM ON THE BEDSIDE MONITOR. IV ACCESS ON RIGHT UPPER ARM PICC LINE AND LEFT FOREARM 22 GAUGE. D5NS RUNNING ORDERED. PATIENT ON LEVOPHED RUNNING PER PROTOCOL. CURRENTLY AT 0.04 MCG. SAFETY MEASURES IMPLEMENTED WILL CONTINUE PLAN OF CARE AND ANTICIPATE NEEDS.
[2022-04-29] MEDS: ACETYLCYSTEINE 10% SOLN 400 MG/4 ML VIAL NEB SCH ×3 (07:16→23:30)
[2022-04-29] MEDS: PANTOPRAZOLE 40 MG VIAL IV SCH ×2 (08:30→21:33)
[2022-04-29] MEDS: PROSOURCE / PROSTAT (PYXIS) 30 ML UDC PO SCH ×3 (08:30→16:09)
[2022-04-29] MEDS: MORPHINE SULFATE INJ 2 MG/ML DISP.SYRIN IV PRN (11:49)
[2022-04-29] MEDS: IV D5/ 0.9% NACL 1,000 ML IV PRN (12:47)
[2022-04-29 13:08] LABS: BASOPHILS # (AUTO) 0.1 K/uL (0.0-0.2); BASOPHILS % (AUTO) 0.8 % (0.0-2.0); EOSINOPHILS % (AUTO) 1.2 % (0.0-6.0); HEMATOCRIT 28 % (39-51); HEMOGLOBIN 8.9 g/dL (13.5-17.5); LYMPHOCYTES # (AUTO) 1.3 K/uL (0.8-4.8); LYMPHOCYTES % (AUTO) 7.6 % (20.0-44.0); MEAN CORPUSCULAR HGB CONC 33 g/dl (31.0-36.0); MEAN CORPUSCULAR VOLUME 94 fL (80-96); MONOCYTES # (AUTO) 1.7 K/uL (0.1-1.30); MONOCYTES % (AUTO) 9.6 % (2.0-12.0); NEUTROPHILS # (AUTO) 13.9 K/uL (1.8-8.9); NEUTROPHILS % (AUTO) 80.8 % (43.0-81.0); PLATELET COUNT (AUTO) 268 K/uL (150-450); RED BLOOD CELL COUNT(AUTO) 2.93 MIL/uL (4.5-6.0); WHITE BLOOD COUNT (AUTO) 17.3 K/uL (4.3-11.0)
[2022-04-29] MEDS: NOREPINEPHRINE 8 MG in IV NS 0.9% 242 ML IV PRN (15:58)
[2022-04-29 17:13] LABS: EOSINOPHILS % (MANUAL) 2 % (0-4); LYMPHOCYTES % (MANUAL) 11 % (16-48); MONOCYTES % (MANUAL) 5 % (0-11.0); NEUTROPHILS % (MANUAL) 82 (42-76)
--- NOTE | 2022-04-29 18:55 | NUR ---
HAND OFF REPORT GIVEN TO AMINATA RIOS FOR CONTINUATION OF CARE.
--- NOTE | 2022-04-29 19:48 | NUR ---
RT NOTE PT REFUSED TX AT THIS TIME. NO SOB NOTED. PT ON 2LPM NASAL CANNULA. RN AMINATA AGUSTIN.
[2022-04-29] MEDS: FLUCONAZOLE IN NS 100 MG in PREMIX 1 EA IV SCH ×2 (22:04)
[2022-04-30] VITALS (97 sets, daily range): BP systolic 78–124; BP diastolic 37–71
[2022-04-30] MEDS: IV D5/ 0.9% NACL 1,000 ML IV PRN ×2 (02:12→16:02)
[2022-04-30] MEDS: IPRATROPIUM NEB FS 0.5 MG/2.5 ML AMPUL.NEB NEB SCH ×6 (03:30→23:30)
[2022-04-30] MEDS: VANCOMYCIN 0.75 GM in IV D5W 250 ML IV SCH (04:14)
[2022-04-30 05:05] LABS: BASOPHILS # (AUTO) 0.1 K/uL (0.0-0.2); BASOPHILS % (AUTO) 0.6 % (0.0-2.0); EOSINOPHILS % (AUTO) 1.3 % (0.0-6.0); HEMATOCRIT 25 % (39-51); HEMOGLOBIN 8.4 g/dL (13.5-17.5); LYMPHOCYTES # (AUTO) 0.9 K/uL (0.8-4.8); LYMPHOCYTES % (AUTO) 7.6 % (20.0-44.0); MEAN CORPUSCULAR HGB CONC 33 g/dl (31.0-36.0); MEAN CORPUSCULAR VOLUME 92 fL (80-96); MONOCYTES # (AUTO) 1.2 K/uL (0.1-1.30); MONOCYTES % (AUTO) 10.3 % (2.0-12.0); NEUTROPHILS # (AUTO) 9.6 K/uL (1.8-8.9); NEUTROPHILS % (AUTO) 80.2 % (43.0-81.0); PLATELET COUNT (AUTO) 232 K/uL (150-450); RED BLOOD CELL COUNT(AUTO) 2.74 MIL/uL (4.5-6.0)
[2022-04-30 05:24] LABS: ALANINE AMINOTRANSFERASE 7 U/L (12-78); ALKALINE PHOSPHATASE 154 U/L (46-116); ASPARTATE AMINOTRANSFERASE 23 U/L (15-37); BILIRUBIN,TOTAL 0.5 mg/dL (0.2-1.0); CALCIUM, SERUM 6.9 mg/dL (8.5-10.1); CARBON DIOXIDE 28 mmol/L (21-32); CHLORIDE 105 mmol/L (98-107); CREATININE 0.5 mg/dL (0.6-1.3); GLUCOSE 105 mg/dL (74-106); POTASSIUM 3.4 mmol/L (3.5-5.1); SODIUM SERUM 136 mmol/L (136-145); TOTAL PROTEIN, SERUM 4.3 g/dL (6.4-8.2); UREA NITROGEN, BLOOD 9 mg/dL (7-18)
[2022-04-30] MEDS: MEROPENEM 1 G in IV NS 0.9% 100 ML IV SCH ×2 (05:27→13:36)
[2022-04-30 05:30] LABS: ALBUMIN 1.3 g/dL (3.4-5.0)
--- NOTE | 2022-04-30 07:12 | NUR ---
RN OPENING NOTES RECEIVED REPORT FROM [facility] RN AMINATA. PATIENT IN BED BREATHING EVENLY AND UNLABORED ON 2 LITERS OXYGEN VIA NASAL CANULA, WITH OXYGEN SATURATION AT 98%. READING NORMAL SINUS ON BEDSIDE MONITOR. IV ACCESSES ON RIGHT UPPER ARM PICC LINE AND LEFT FOREARM 22 GAUGE FLUSHING EASILY WITHOUT RESISTANCE. OFF LEVOPHED SINCE 214 ON 04/30/2022. SAFETY MEASURES IMPLEMENTED, WILL CONTINUE PLAN OF CARE AND ANTICIPATE NEEDS.
[2022-04-30] MEDS: ACETYLCYSTEINE 10% SOLN 400 MG/4 ML VIAL NEB SCH ×3 (07:35→23:30)
--- NOTE | 2022-04-30 07:53 | NUR ---
RESTARTED ON LEVOPHED AT 0.01 MCGS FOR BLOOD PRESSURE OF 84/48 WITH MAP OF 62.
[2022-04-30] MEDS: Z GUARD REMEDY 4 OZ OINT TP SCH (08:50)
[2022-04-30] MEDS: PROSOURCE / PROSTAT (PYXIS) 30 ML UDC PO SCH ×3 (08:51→16:06)
[2022-04-30] MEDS: PANTOPRAZOLE 40 MG VIAL IV SCH (08:52)
[2022-04-30] MEDS: IV NS 0.9% 250 ML IV PRN (09:09)
[2022-04-30] MEDS: ALBUMIN 25% 25 GM in PREMIX 1 EA IV SCH ×2 (09:09→20:47)
[2022-04-30] MEDS ORDERED: IV NS 0.9% 500 ML BAG IV ONE (11:00)
[2022-04-30] MEDS ORDERED: POTASSIUM CHLORIDE 20 MEQ POWDER PACKET PO ONE (11:00)
--- NOTE | 2022-04-30 18:56 | NUR ---
HAND OFF REPORT GIVEN TO AMINATA RIOS FOR CONTINUATION OF CARE.
[2022-04-30] MEDS: NOREPINEPHRINE 8 MG in IV NS 0.9% 242 ML IV PRN (19:13)
--- NOTE | 2022-04-30 20:30 | NUR ---
RT NOTE PT REFUSED TX AT THIS TIME. PT ON 2 LPM NASAL CANNULA. NO RESPIRATORY DISTRESS NOTED. WILL CONTINUE TO MONITOR. RN AMINATA AGUSTIN.
[2022-04-30] MEDS: PANTOPRAZOLE 40 MG/PACK PACK GT SCH (20:47)
[2022-05-01] VITALS (44 sets, daily range): BP systolic 83–138; BP diastolic 41–81
[2022-05-01] MEDS: IPRATROPIUM NEB FS 0.5 MG/2.5 ML AMPUL.NEB NEB SCH ×6 (03:11→23:30)
[2022-05-01] MEDS: IV D5/ 0.9% NACL 1,000 ML IV PRN ×2 (04:04→17:36)
[2022-05-01 04:51] LABS: BASOPHILS % (AUTO) 0.5 % (0.0-2.0); EOSINOPHILS % (AUTO) 1.5 % (0.0-6.0); HEMATOCRIT 23 % (39-51); HEMOGLOBIN 7.9 g/dL (13.5-17.5); LYMPHOCYTES # (AUTO) 0.9 K/uL (0.8-4.8); LYMPHOCYTES % (AUTO) 9.1 % (20.0-44.0); MEAN CORPUSCULAR HGB CONC 34 g/dl (31.0-36.0); MEAN CORPUSCULAR VOLUME 92 fL (80-96); MONOCYTES # (AUTO) 0.9 K/uL (0.1-1.30); MONOCYTES % (AUTO) 9.3 % (2.0-12.0); NEUTROPHILS # (AUTO) 7.6 K/uL (1.8-8.9); NEUTROPHILS % (AUTO) 79.6 % (43.0-81.0); PLATELET COUNT (AUTO) 220 K/uL (150-450); RED BLOOD CELL COUNT(AUTO) 2.53 MIL/uL (4.5-6.0); WHITE BLOOD COUNT (AUTO) 9.5 K/uL (4.3-11.0)
[2022-05-01 05:19] LABS: ALANINE AMINOTRANSFERASE 10 U/L (12-78); ALBUMIN 1.8 g/dL (3.4-5.0); ALKALINE PHOSPHATASE 150 U/L (46-116); ASPARTATE AMINOTRANSFERASE 22 U/L (15-37); BILIRUBIN,TOTAL 0.5 mg/dL (0.2-1.0); CALCIUM, SERUM 7.1 mg/dL (8.5-10.1); CARBON DIOXIDE 29 mmol/L (21-32); CHLORIDE 106 mmol/L (98-107); CREATININE 0.5 mg/dL (0.6-1.3); GLUCOSE 87 mg/dL (74-106); POTASSIUM 3.6 mmol/L (3.5-5.1); SODIUM SERUM 137 mmol/L (136-145); TOTAL PROTEIN, SERUM 4.4 g/dL (6.4-8.2); UREA NITROGEN, BLOOD 8 mg/dL (7-18)
--- NOTE | 2022-05-01 07:15 | NUR ---
RN note Received patient in bed, alert without active complaint. monitoring coordinator showed SR HR 73/min. BP 91/51mmHg, MAP 64. SpO2 95% with NC 2L/min. Generalized pitting edema is noted over four limbs. Right upper arm PICC is patent, dressing is dry and intact, with D5NS running at 85mL/hr. Call christiansen is placed within reach. Bed is locked. Will continue monitoring.
[2022-05-01] MEDS: ACETYLCYSTEINE 10% SOLN 400 MG/4 ML VIAL NEB SCH ×3 (07:35→23:30)
[2022-05-01] MEDS: PANTOPRAZOLE 40 MG/PACK PACK GT SCH ×2 (08:26→21:19)
[2022-05-01] MEDS: Z GUARD REMEDY 4 OZ OINT TP SCH (08:26)
[2022-05-01] MEDS: PROSOURCE / PROSTAT (PYXIS) 30 ML UDC PO SCH ×3 (08:26→17:36)
[2022-05-01] MEDS: MIDODRINE HCL (5MG) 5 MG TABLET PO SCH ×3 (10:25→17:36)
[2022-05-01] MEDS: ALBUMIN 25% 25 GM in PREMIX 1 EA IV SCH ×2 (11:40→23:00)
[2022-05-01] MEDS ORDERED: FUROSEMIDE 40 MG/4 ML VIAL IV ONE (12:00)
[2022-05-01] MEDS: HYDROCORTISONE SOD SUCCINATE 100 MG/2 ML VIAL IV SCH ×2 (12:35→21:19)
--- NOTE | 2022-05-01 18:27 | NUR ---
RN note Total output from 7A-7P: Reid: 2050 mL Drains: R -> 485mL L -> 520mL Colostomy -> 100mL
--- NOTE | 2022-05-01 20:17 | NUR ---
RT NOTE PT REFUSED TX X3 AFTER EXPLAINING RISKS AND BENEFITS. NO RESPIRATORY DISTRESS NOTED. RN AWARE.
[2022-05-02] VITALS (20 sets, daily range): BP systolic 100–138; BP diastolic 51–80
[2022-05-02] MEDS: IPRATROPIUM NEB FS 0.5 MG/2.5 ML AMPUL.NEB NEB SCH ×6 (03:30→23:30)
[2022-05-02 04:13] LABS: HEMATOCRIT 23 % (39-51); LYMPHOCYTES # (AUTO) 0.5 K/uL (0.8-4.8); LYMPHOCYTES % (AUTO) 4.5 % (20.0-44.0); MEAN CORPUSCULAR HGB CONC 34 g/dl (31.0-36.0); MEAN CORPUSCULAR VOLUME 92 fL (80-96); MONOCYTES # (AUTO) 0.2 K/uL (0.1-1.30); MONOCYTES % (AUTO) 2.1 % (2.0-12.0); NEUTROPHILS # (AUTO) 10.2 K/uL (1.8-8.9); NEUTROPHILS % (AUTO) 93.4 % (43.0-81.0); PLATELET COUNT (AUTO) 221 K/uL (150-450); RED BLOOD CELL COUNT(AUTO) 2.54 MIL/uL (4.5-6.0)
[2022-05-02 04:47] LABS: ALANINE AMINOTRANSFERASE 9 U/L (12-78); ALBUMIN 2.2 g/dL (3.4-5.0); ALKALINE PHOSPHATASE 167 U/L (46-116); ASPARTATE AMINOTRANSFERASE 23 U/L (15-37); BILIRUBIN,TOTAL 0.5 mg/dL (0.2-1.0); CALCIUM, SERUM 7.5 mg/dL (8.5-10.1); CARBON DIOXIDE 30 mmol/L (21-32); CHLORIDE 104 mmol/L (98-107); CREATININE 0.5 mg/dL (0.6-1.3); GLUCOSE 148 mg/dL (74-106); POTASSIUM 3.6 mmol/L (3.5-5.1); SODIUM SERUM 138 mmol/L (136-145); TOTAL PROTEIN, SERUM 4.9 g/dL (6.4-8.2); UREA NITROGEN, BLOOD 12 mg/dL (7-18)
[2022-05-02] MEDS: HYDROCORTISONE SOD SUCCINATE 100 MG/2 ML VIAL IV SCH ×3 (05:37→20:57)
[2022-05-02] MEDS: IV D5/ 0.9% NACL 1,000 ML IV PRN (05:38)
[2022-05-02] MEDS: ACETYLCYSTEINE 10% SOLN 400 MG/4 ML VIAL NEB SCH ×3 (06:45→23:30)
--- NOTE | 2022-05-02 07:43 | NUR ---
RN OPENING NOTED Received patient in bed, alert without active complaint. green lumber grader showed SR HR 72/min. Generalized pitting edema is noted over four limbs. Right upper arm PICC is patent, dressing is dry and intact, with D5NS running at 85mL/hr. Call light is placed within reach. keyana drain noted intact, draining with clear yellow drainage. Bed is locked. plan of care continue. Addendum: 05/02/22 at 0747 by MARYANN HUMPHREY RN colostomy noted intact. f/c noted patent and intact, noted with clear yellow urine draining.
[2022-05-02] MEDS: PROSOURCE / PROSTAT (PYXIS) 30 ML UDC PO SCH ×3 (08:18→16:10)
[2022-05-02] MEDS: MIDODRINE HCL (5MG) 5 MG TABLET PO SCH ×3 (08:18→16:22)
[2022-05-02] MEDS: PANTOPRAZOLE 40 MG/PACK PACK GT SCH ×2 (08:19→20:57)
[2022-05-02] MEDS: Z GUARD REMEDY 4 OZ OINT TP SCH (08:19)
--- NOTE | 2022-05-02 09:30 | NUR ---
CONFERENCE AND EVENT ORGANISER NOTES COLOSTOMY BAG CHANGED, NOTED WITH 200ML SOFT BROWN BM. PLAN OF CARE CONTINUE.
--- NOTE | 2022-05-02 16:40 | NUR ---
RUG SETTER VELVET CLOSING NOTES Received patient in bed, alert and verbally responsive, no sob noted, respiration even and unlabored. feather boner showed SR 72, Generalized pitting edema is still noted over four limbs. Right upper arm PICC is patent, dressing is dry and intact, with D5NS running at 85mL/hr. Call light is placed within reach. keyana drain noted intact, draining with clear sanguineous drainage. colostomy intact. f/c patent and intact, draining with clear yellow urine. safety measures in placed. call light within reach. Bed is locked. will endorse to pants cutter nurse for rhona.
--- NOTE | 2022-05-02 17:40 | NUR ---
DISC PAD PLATE FILLER NOTES TRANSFERRED PATIENT TO [facility]. ROOM 114-2, STABLE WITH ALL PERSONAL BELONGINGS AND MEDICATIONS. PLAN OF CARE CONTINUE.
[2022-05-02] MEDS: MORPHINE SULFATE INJ 2 MG/ML DISP.SYRIN IV PRN (21:48)
--- NOTE | 2022-05-02 21:48 | NUR ---
RN NOTE PT REPORTS OF A 10/10 PAIN ON BILATERAL FEET AND KNEES. PT ADMINISTERED MORPHINE 2 MG IV. WILL MONITOR FOR EFFECTIVENESS.
--- NOTE | 2022-05-02 22:40 | NUR ---
CARMEN RN OPENING NOTES Received pt in bed, A/O X2-3, on NC at 2L, O2 sat 94%, SR at 87. Reid and colostomy intact and patent. NICOLAS draining serosanguineous. Right upper arm D5 NS @ 85 ml/hr. Bed in lowest position, call light within reach. Side rails up x3. Will continue to monitor throughout the night.
[2022-05-03] VITALS: BP 114/70
--- NOTE | 2022-05-03 00:51 | NUR ---
RN NOTE PT REFUSED BREATHING TREATMENTS SCHEDULED FOR 0000.
[2022-05-03] MEDS: IPRATROPIUM NEB FS 0.5 MG/2.5 ML AMPUL.NEB NEB SCH ×6 (03:30→23:52)
[2022-05-03 04:00] VITALS: BP 121/74
[2022-05-03] MEDS: HYDROCORTISONE SOD SUCCINATE 100 MG/2 ML VIAL IV SCH ×3 (05:03→17:13)
[2022-05-03 06:26] LABS: HEMATOCRIT 26 % (39-51); HEMOGLOBIN 8.4 g/dL (13.5-17.5); LYMPHOCYTES # (AUTO) 0.7 K/uL (0.8-4.8); LYMPHOCYTES % (AUTO) 4.8 % (20.0-44.0); MEAN CORPUSCULAR HGB CONC 33 g/dl (31.0-36.0); MEAN CORPUSCULAR VOLUME 92 fL (80-96); MONOCYTES # (AUTO) 0.5 K/uL (0.1-1.30); MONOCYTES % (AUTO) 3.5 % (2.0-12.0); NEUTROPHILS # (AUTO) 12.5 K/uL (1.8-8.9); NEUTROPHILS % (AUTO) 91.7 % (43.0-81.0); PLATELET COUNT (AUTO) 237 K/uL (150-450); RED BLOOD CELL COUNT(AUTO) 2.76 MIL/uL (4.5-6.0); WHITE BLOOD COUNT (AUTO) 13.7 K/uL (4.3-11.0)
[2022-05-03 07:22] LABS: ALANINE AMINOTRANSFERASE 11 U/L (12-78); ALKALINE PHOSPHATASE 180 U/L (46-116); ASPARTATE AMINOTRANSFERASE 22 U/L (15-37); BILIRUBIN,TOTAL 0.4 mg/dL (0.2-1.0); CALCIUM, SERUM 8.2 mg/dL (8.5-10.1); CARBON DIOXIDE 30 mmol/L (21-32); CHLORIDE 104 mmol/L (98-107); CREATININE 0.5 mg/dL (0.6-1.3); GLUCOSE 127 mg/dL (74-106); POTASSIUM 3.6 mmol/L (3.5-5.1); SODIUM SERUM 138 mmol/L (136-145); TOTAL PROTEIN, SERUM 5.1 g/dL (6.4-8.2); UREA NITROGEN, BLOOD 13 mg/dL (7-18)
--- NOTE | 2022-05-03 07:27 | NUR ---
BUDGET DIRECTOR CLOSING NOTE PT REMAINS IN BED, ASLEEP BUT EASILY AROUSABLE, A7O X2-3, CALM, COOPERATIVE. REMAINS ON 2L NC WITH O2SAT IN THE 80S; NO S/S OF RESP DISTRESS, NO SOB OR COUGH, NON-LABORED AND EQUAL BREATHING. ATTACHED TO EXTERNAL MONITOR, SR WITH HR OF 78. COLOSTOMY INTACT AND PATENT, BAG CHANGED, NOTED TO HAVE SOFT STOOL. BILATERAL NICOLAS DRAIN INTACT AND PATENT, DRAINING YELLOWISH FLUIDS. CORRAL INTACT AND PATEN, DRAINING CLEAR AND YELLOW URINE. KENDALL PICC INTACT AND PATENT, FLUSHES EASILY WITH NO RESISTANCE D5NS INFUSING AT 85 ML/HR. ALL DUE MEDS ADMINISTERED DURING THE NIGHT. BED IN LOWEST POSITION, CALL LIGHT WITHIN REACH, SIDE RAILS UP X3. WILL ENDORSE TO DAYSHIFT NURSE TO CONTINUE CARE.
[2022-05-03] MEDS: ACETYLCYSTEINE 10% SOLN 400 MG/4 ML VIAL NEB SCH ×3 (07:35→23:52)
[2022-05-03 08:00] VITALS: BP 121/74
--- NOTE | 2022-05-03 08:00 | NUR ---
RN OPENING NOTE RECEIVED PATIENT IN BED, ORIENTED X3, ABLE TO RESPONDS TO STIMULI. O2 SATURATION 92 0N NC AT 2L. IV ACCESS RIGHT UPPER ARM PICC, FLUSHES WELL. COLOSTOMY BAG LEFT LOWER ABDOMEN EMPTY AND CLEAN, NICOLAS TUBE RIGHT LOWER ABDOMEN, NO REDNESS OR S/S INFLAMMATION NOTED. NO ACUTE DISTRESS OBSERVED. SKIN IS WARM TO TOUCH, KEEP CLEAN/DRY. KEPT ELEVATED HOB FOR ASPIRATION PRECAUTION/ENSURE AIRWAY, BED IN POSITION, BED ALARM IS ON AT ALL THE TIME. CALL LIGHT WITHIN REACH, WILL CONTINUE TO MONITOR
[2022-05-03] MEDS: PANTOPRAZOLE 40 MG/PACK PACK GT SCH ×2 (08:03→20:49)
[2022-05-03] MEDS: MIDODRINE HCL (5MG) 5 MG TABLET PO SCH ×3 (08:08→17:00)
[2022-05-03] MEDS: PROSOURCE / PROSTAT (PYXIS) 30 ML UDC PO SCH ×3 (08:09→17:13)
[2022-05-03] MEDS: Z GUARD REMEDY 4 OZ OINT TP SCH (08:11)
[2022-05-03] MEDS: IV D5/ 0.9% NACL 1,000 ML IV PRN (09:47)
[2022-05-03 12:00] VITALS: BP 119/69
[2022-05-03 16:00] VITALS: BP 129/68
--- NOTE | 2022-05-03 18:49 | NUR ---
ORAL AND MAXILLOFACIAL SURGERY RESIDENT CLOSING NOTE PT REMAINS IN BED, ASLEEP BUT EASILY AROUSABLE, CALM, COOPERATIVE. O2 SATURATION 92% ON 2L NC, NO S/S OF RESP DISTRESS, NO SOB OR COUGH, COLOSTOMY INTACT AND PATENT, BAG CHANGED, NOTED TO HAVE SOFT STOOL. BILATERAL NICOLAS DRAIN INTACT, DRAINING YELLOWISH FLUIDS. CORRAL INTACT, DRAINING CLEAR AND YELLOW URINE. KENDALL PICC INTACT, FLUSHES WELL. BED IN LOWEST POSITION, CALL LIGHT WITHIN REACH, SIDE RAILS UP X3.
[2022-05-03 20:00] VITALS: BP 127/76
--- NOTE | 2022-05-03 21:30 | NUR ---
LEAD DENTAL ASSISTANT OPENING NOTE PATIENT WAS TRANSFERRED TO MY CARE AT 2130. PATIENT IS SITTING IN BED WATCHING TV. HE IS ALERT AND ORIENTED, AO X 3. HE IS ON 2 LPM OXYGEN VIA NC, O2 SATE IS 96%. TOLERATED WELL. NO S/S OF SOB OR DISTRESS. IV ACCESS IS AT HIS R UA, PICC, #18G. RUNNING D5NS @85 ML/ HR. IV SITE IS PATENT AND INTACT. PATIENT HAS TWO NICOLAS DRAINAGE BAG COMING FROM HIS LOWER ABD; ONE IS ON HIS RIGHT, AND ANOTHER IS ON THE LEFT; DRAINING YELLOW COLOR FLUID FREELY. COLOSTOMY BAG AT HIS UPPER ABD; PATENT AND INTACT. ABD HAS INCISION DRESSING PATIENT IS ON EXTERNAL HEART MONITOR, ON THE MONITOR, HIS HEART RHYTHM IS SR AT 60S. SAFETY MEASURES ARE IN PLACE: BED IN LOWEST AND LOCKED POSITION; SIDE RAILS UP X 2; CALL LIGHT AND TABLE ARE WITHIN REACH. WILL CONTINUE MONITORING THE PATIENT AND PROVIDE THE CARE PATIENT NEEDS.
[2022-05-04] VITALS: BP 132/77
[2022-05-04] MEDS: IV D5/ 0.9% NACL 1,000 ML IV PRN (02:14)
[2022-05-04 04:00] VITALS: BP 148/76
[2022-05-04] MEDS: IPRATROPIUM NEB FS 0.5 MG/2.5 ML AMPUL.NEB NEB SCH ×4 (04:38→15:30)
[2022-05-04 06:48] LABS: HEMATOCRIT 27 % (39-51); HEMOGLOBIN 8.9 g/dL (13.5-17.5); LYMPHOCYTES # (AUTO) 0.6 K/uL (0.8-4.8); LYMPHOCYTES % (AUTO) 4.5 % (20.0-44.0); MEAN CORPUSCULAR HGB CONC 33 g/dl (31.0-36.0); MEAN CORPUSCULAR VOLUME 92 fL (80-96); MONOCYTES # (AUTO) 0.6 K/uL (0.1-1.30); MONOCYTES % (AUTO) 4.5 % (2.0-12.0); PLATELET COUNT (AUTO) 244 K/uL (150-450); RED BLOOD CELL COUNT(AUTO) 2.91 MIL/uL (4.5-6.0); WHITE BLOOD COUNT (AUTO) 14.3 K/uL (4.3-11.0)
[2022-05-04 07:32] LABS: ALANINE AMINOTRANSFERASE 16 U/L (12-78); ALKALINE PHOSPHATASE 212 U/L (46-116); ASPARTATE AMINOTRANSFERASE 29 U/L (15-37); BILIRUBIN,TOTAL 0.4 mg/dL (0.2-1.0); CALCIUM, SERUM 8.2 mg/dL (8.5-10.1); CARBON DIOXIDE 30 mmol/L (21-32); CHLORIDE 104 mmol/L (98-107); CREATININE 0.5 mg/dL (0.6-1.3); GLUCOSE 111 mg/dL (74-106); POTASSIUM 3.6 mmol/L (3.5-5.1); SODIUM SERUM 137 mmol/L (136-145); TOTAL PROTEIN, SERUM 5.1 g/dL (6.4-8.2); UREA NITROGEN, BLOOD 16 mg/dL (7-18)
[2022-05-04] MEDS: ACETYLCYSTEINE 10% SOLN 400 MG/4 ML VIAL NEB SCH ×2 (07:35→15:30)
--- NOTE | 2022-05-04 07:47 | NUR ---
BLOOD BANK BUSINESS MANAGER CLOSING NOTE PATIENT IS IN BED. HE IS ALERT AND ORIENTED, AO X 3. HE IS ON 2 LPM OXYGEN VIA NC, O2 SATE IS 96%. TOLERATED WELL. NO S/S OF SOB OR DISTRESS. XRAY IS DONE TODAY. IV ACCESS IS AT HIS R UA, PICC, #18G. RUNNING D5NS @85 ML/ HR. IV SITE IS PATENT AND INTACT. PATIENT'S TWO NICOLAS DRAINAGE BAG DRAINING YELLOW COLOR FLUID FREELY. COLOSTOMY BAG AT HIS UPPER ABD; PATENT AND INTACT. ABD HAS INCISION DRESSING PATIENT IS ON EXTERNAL HEART MONITOR, ON THE MONITOR, HIS HEART RHYTHM IS SR AT 60S. SAFETY MEASURES ARE IN PLACE: BED IN LOWEST AND LOCKED POSITION; SIDE RAILS UP X 2; CALL LIGHT AND TABLE ARE WITHIN REACH. WILL ENDORSE NEXT SHIFT NURSE FOR CONTINUING PATIENT CARE.
[2022-05-04 08:00] VITALS: BP 142/76
--- NOTE | 2022-05-04 08:00 | NUR ---
RN OPENING NOTE RECEIVED PATIENT IN BED, ORIENTED X3, ABLE TO RESPONDS TO STIMULI. O2 SATURATION 91 0N NC AT 2L. IV ACCESS RIGHT UPPER ARM PICC, FLUSHES WELL. COLOSTOMY BAG LEFT LOWER ABDOMEN EMPTY AND CLEAN, NICOLAS TUBES RIGHT LOWER ABDOMEN, DRAINING WELL, NO REDNESS OR S/S INFLAMMATION NOTED. NO ACUTE DISTRESS OBSERVED. SKIN IS WARM TO TOUCH, KEEP CLEAN/DRY. KEPT ELEVATED HOB FOR ASPIRATION PRECAUTION/ENSURE AIRWAY, BED IN POSITION, BED ALARM IS ON AT ALL THE TIME. CALL LIGHT WITHIN REACH, WILL CONTINUE TO MONITOR
[2022-05-04] MEDS: MIDODRINE HCL (5MG) 5 MG TABLET PO SCH ×3 (09:00→17:00)
[2022-05-04] MEDS: Z GUARD REMEDY 4 OZ OINT TP SCH (10:13)
[2022-05-04] MEDS: PANTOPRAZOLE 40 MG/PACK PACK GT SCH (10:14)
[2022-05-04] MEDS: PROSOURCE / PROSTAT (PYXIS) 30 ML UDC PO SCH ×2 (10:14→13:10)
[2022-05-04] MEDS: HYDROCORTISONE SOD SUCCINATE 100 MG/2 ML VIAL IV SCH (10:14)
--- NOTE | 2022-05-04 11:40 | NUR ---
rn note notified nonprofit director danielan of procalcitonin is 0.13. waiting for response. notified nonprofit director danielan of results of ct abdomen. will followup
[2022-05-04 12:00] VITALS: BP 140/60
[2022-05-04] MEDS ORDERED: MIDO5TAB4 PO (15:13)
[2022-05-04] MEDS ORDERED: FLUD0.1T PO (15:13)
[2022-05-04 16:00] VITALS: BP 120/70
[2022-05-04] MEDS ORDERED: HYDROCORTISONE SOD SUCCINATE 100 MG/2 ML VIAL IV SCH (16:00)
[2022-05-04 17:00] VITALS: BP 121/70
--- NOTE | 2022-05-04 18:00 | NUR ---
rn note emptied sharee charan drain 500 ml total output from left and right drain. changed colostomy bad. dressing clean, dry and intact
--- NOTE | 2022-05-04 18:30 | NUR ---
broomcorn thresher note pt discharged. provided discharge paperwork. pt verbalized understanding. notified pt son about discharge. pt son aware of discharge.removed picc line, tele box, colvin cath. pt discharged with his belongings. pt stable condition. gave report to EMT. transported via ambulance back to facility.
--- NOTE | 2022-05-04 20:30 | NUR ---
rn note spoke with MC at [facility]. resent medication list. confirmation fax sheet completed
== END 2022-05-04 18:30 | DRG 853 ==
LOC: ER 10:49 → MED 17:25 → ICU 19:52 → TELE1 05-02 17:55 → UNDODISIN 05-04 18:47
PROVIDERS: ADMIT Nurse Practitioner Acute Care; ATTEND Nurse Practitioner Acute Care
PROC: 0DTG0ZZ Resection of Left Large Intestine, Open Approach (ICD-10-PCS; principal; 2022-04-21)
PROC: 0D1L0Z4 Bypass Transverse Colon to Cutaneous, Open Approach (ICD-10-PCS; 2022-04-21)
PROC: 0DBU0ZZ Excision of Omentum, Open Approach (ICD-10-PCS; 2022-04-21)
PROC: 30233N1 Transfusion of Nonautologous Red Blood Cells into Peripheral Vein, Percutaneous Approach (ICD-10-PCS; 2022-04-21)
PROC: 0W9G3ZZ Drainage of Peritoneal Cavity, Percutaneous Approach (ICD-10-PCS; 2022-04-21)
PROC: 0BH18EZ Insertion of Endotracheal Airway into Trachea, Via Natural or Artificial Opening Endoscopic (ICD-10-PCS; 2022-04-21)
PROC: 5A1945Z Respiratory Ventilation, 24-96 Consecutive Hours (ICD-10-PCS; 2022-04-21)
PROC: 02HV33Z Insertion of Infusion Device into Superior Vena Cava, Percutaneous Approach (ICD-10-PCS; 2022-04-22)
PROC: B548ZZA Ultrasonography of Superior Vena Cava, Guidance (ICD-10-PCS; 2022-04-22)
PROC: 0W993ZZ Drainage of Right Pleural Cavity, Percutaneous Approach (ICD-10-PCS; 2022-04-27)
DX: A41.9 Sepsis, unspecified organism (principal); J96.01 Acute respiratory failure with hypoxia; K65.2 Spontaneous bacterial peritonitis; R65.21 Severe sepsis with septic shock; K57.20 Diverticulitis of large intestine with perforation and abscess without bleeding; J98.11 Atelectasis; K76.6 Portal hypertension; E87.20 Acidosis, unspecified; J90 Pleural effusion, not elsewhere classified; E87.1 Hypo-osmolality and hyponatremia; E27.40 Unspecified adrenocortical insufficiency; K70.31 Alcoholic cirrhosis of liver with ascites; D75.839 Thrombocytosis, unspecified; E03.9 Hypothyroidism, unspecified; E83.42 Hypomagnesemia; I10 Essential (primary) hypertension; Z74.01 Bed confinement status; Z87.440 Personal history of urinary (tract) infections; K21.9 Gastro-esophageal reflux disease without esophagitis; Z20.822 Contact with and (suspected) exposure to COVID-19; E80.6 Other disorders of bilirubin metabolism; R13.10 Dysphagia, unspecified; E88.09 Other disorders of plasma-protein metabolism, not elsewhere classified; M62.50 Muscle wasting and atrophy, not elsewhere classified, unspecified site; F09 Unspecified mental disorder due to known physiological condition; G47.33 Obstructive sleep apnea (adult) (pediatric); Z68.26 Body mass index [BMI] 26.0-26.9, adult; L89.626 Pressure-induced deep tissue damage of left heel; L90.5 Scar conditions and fibrosis of skin; F03.90 Unspecified dementia, unspecified severity, without behavioral disturbance, psychotic disturbance, mood disturbance, and anxiety
CPT/HCPCS: 31720; 36415; 36569; 36600; 71045-TC; 71250-TC; 76942-TC; 80048-TC; 80053-TC; 80061-TC; 80076-TC; 80202-TC; 82248-TC; 82533; 82803-TC; 82945-TC; 82962-TC; 83605-TC; 83615-TC; 83735-TC; 84100-TC; 85025-TC; 85610-TC; 85730-TC; 86850-TC; 87040-TC; 87081-TC; 87102-TC; 89051-TC; 92526; 92611-TC; 94002-TC; 94003-TC; 94668-TC; 94760-TC; 94799-TC; 97110-TC; 97530-TC; A4216; A6403; C9113; C9803; G0378; J0330; J0690; J0692; J0744; J1100; J1450; J1720; J1940; J2185; J2270; J2405; J2543; J3010; J3370; J3430; J3475; J3490; J7030; J7040; J7042; J7050; J7060; J7070; J7120; P9016; P9045; P9047; Q9967

== ENCOUNTER 2022-05-21 09:25 | Inpatient (IN) | payer MEDICARE ==
[~2022-05-21] VITALS: Ht 193 cm; Wt 113.4 kg
[~2022-05-21 09:25] MED LIST changes: +CLOT12CR TP; +FLUD0.1T PO; -LIOT25TA7 PO; +MIDO5TAB4 PO; +ONDA4TAB5 PO; +TRAM50TA2 PO; -XEROFORM TD
--- NOTE | 2022-05-21 09:40 | NUR ---
BIB [facility] FOR NOTED GROSS HEMATURIA S/P F/C INSERTION LAST NIGHT SENT FOR FURTHER EVAL.
[2022-05-21] MEDS ORDERED: IV NS 0.9% 1,000 ML BAG IV ONE (10:00)
[2022-05-21] MEDS ORDERED: MORPHINE SULFATE INJ 2 MG/ML DISP.SYRIN IV ONE (10:00)
[2022-05-21] MEDS ORDERED: MORPHINE SULFATE INJ 2 MG/ML DISP.SYRIN ONE ×2 (10:02→10:05)
[2022-05-21 10:14] LABS: BASOPHILS # (AUTO) 0.1 K/uL (0.0-0.2); BASOPHILS % (AUTO) 0.5 % (0.0-2.0); EOSINOPHILS % (AUTO) 2.1 % (0.0-6.0); HEMATOCRIT 28 % (39-51); HEMOGLOBIN 9.2 g/dL (13.5-17.5); LYMPHOCYTES # (AUTO) 1.1 K/uL (0.8-4.8); LYMPHOCYTES % (AUTO) 10.7 % (20.0-44.0); MEAN CORPUSCULAR HGB CONC 33 g/dl (31.0-36.0); MEAN CORPUSCULAR VOLUME 93 fL (80-96); MONOCYTES # (AUTO) 0.9 K/uL (0.1-1.30); MONOCYTES % (AUTO) 8.9 % (2.0-12.0); NEUTROPHILS # (AUTO) 7.8 K/uL (1.8-8.9); NEUTROPHILS % (AUTO) 77.8 % (43.0-81.0); PLATELET COUNT (AUTO) 180 K/uL (150-450); RED BLOOD CELL COUNT(AUTO) 2.98 MIL/uL (4.5-6.0)
[2022-05-21] MEDS ORDERED: OLANZAPINE 10 MG VIAL IM ONE ×2 (10:36→11:00)
[2022-05-21 10:37] LABS: ALANINE AMINOTRANSFERASE 11 U/L (12-78); ALBUMIN 1.6 g/dL (3.4-5.0); ALKALINE PHOSPHATASE 245 U/L (46-116); ASPARTATE AMINOTRANSFERASE 24 U/L (15-37); BILIRUBIN,DIRECT 0.2 mg/dL (0.0-0.2); BILIRUBIN,TOTAL 0.4 mg/dL (0.2-1.0); CALCIUM, SERUM 8.7 mg/dL (8.5-10.1); CARBON DIOXIDE 28 mmol/L (21-32); CHLORIDE 103 mmol/L (98-107); CREATININE 3.2 mg/dL (0.6-1.3); GLUCOSE 99 mg/dL (74-106); LIPASE 94 U/L (73-393); POTASSIUM 4.5 mmol/L (3.5-5.1); SODIUM SERUM 138 mmol/L (136-145); TOTAL PROTEIN, SERUM 5.8 g/dL (6.4-8.2); UREA NITROGEN, BLOOD 35 mg/dL (7-18)
[2022-05-21] MEDS ORDERED: HYDR4TAB57 PO (10:53)
[2022-05-21] MEDS ORDERED: MIDO5TAB4 PO (10:53)
[2022-05-21] MEDS ORDERED: AMIN30LI2 PO (10:53)
[2022-05-21] MEDS ORDERED: ZINC220C6 PO (10:53)
[2022-05-21] MEDS ORDERED: POVI3780 TP (10:53)
[2022-05-21] MEDS ORDERED: ZINC56.713 TP (10:53)
[2022-05-21] MEDS ORDERED: NALO4SPR (10:53)
--- NOTE | 2022-05-21 11:29 | NUR ---
covid swab taken
--- NOTE | 2022-05-21 11:35 | NUR ---
MOVE SHEET SUBMITTED.
--- NOTE | 2022-05-21 12:27 | NUR ---
BED 321-1
[2022-05-21] MEDS ORDERED: MAG HYDROX/AL HYDROX/SIMETH 30 ML UDC PO PRN (12:30)
[2022-05-21] MEDS ORDERED: ACETAMINOPHEN 325 MG TABLET PO PRN ×2 (12:30)
[2022-05-21] MEDS ORDERED: MAGNESIUM HYDROXIDE 30 ML UDC PO PRN ×2 (12:30)
[2022-05-21] MEDS ORDERED: IV NS 0.9% 1,000 ML IV PRN (12:30)
[2022-05-21] MEDS ORDERED: Medication Not On Formulary EA (Ondansetron Hcl (Zofran) 4 MG) PO PRN (12:30)
[2022-05-21] MEDS ORDERED: ONDANSETRON HCL/PF 4 MG/2 ML VIAL IVP PRN (12:30)
[2022-05-21] MEDS ORDERED: Z GUARD REMEDY 4 OZ OINT TP PRN (12:30)
[2022-05-21] MEDS ORDERED: TRAMADOL HCL 50 MG TABLET PO PRN (12:30)
[2022-05-21 12:49] LABS: BILIRUBIN,URINE 1+ (NEGATIVE); COLOR,URINE AMBER (YELLOW); LEUKOCYTE ESTERASE ,URINE TRACE (NEGATIVE); NITRITE, URINE POSITIVE (NEGATIVE); PROTEIN,URINE 2+ mg/dl (NEGATIVE); UGLUCOSE NEGATIVE (NEGATIVE); UROBILINOGEN,URINE 0.2 EU/dL (0.2)
[2022-05-21 12:53] LABS: BACTERIA,URINE Moderate /HPF (None Seen); RBC,URINE TOO NUMEROUS TO COUN /HPF (0-2); SQUAMOUS EPITHELIAL CELL,UR Few /HPF (None Seen)
--- NOTE | 2022-05-21 12:58 | NUR ---
report given to emir RIOS
[2022-05-21] MEDS: GABAPENTIN 100 MG CAPSULE PO SCH ×3 (13:00→21:28)
[2022-05-21] MEDS: MIDODRINE HCL (5MG) 5 MG TABLET PO SCH ×2 (13:00→17:00)
--- NOTE | 2022-05-21 13:15 | NUR ---
MS ADMIT FROM ER AFTER REPORT RECEIVED FROM SEPTEMBER. PATIENT ORIENTED TO PRIMARY RN, UNIT. ROOM, BED, AND UNIT POLICIES REGARDING PATIENT CARE AND VISITING HOURS. PATIENT WEIGHED BY BEDSCALE AND ENCOURAGED TO TO CALL IF THEY NEED SOMETHING. ALL QUESTIONS AND CONCERNS ADDRESSED. PATIENT VERBALIZED UNDERSTANDING.
[2022-05-21] MEDS ORDERED: HYDROMORPHONE HCL 2 MG TABLET PO PRN (13:30)
[2022-05-21] MEDS: PIPERACILLIN /TAZOBACTAM 3.375 G in IV D5W 100 ML IV SCH ×2 (15:20→21:30)
[2022-05-21] MEDS: PROSOURCE / PROSTAT (PYXIS) 30 ML UDC PO SCH (17:00)
[2022-05-21] MEDS ORDERED: Medication Not On Formulary EA (Cran/Vitc/Mannose/Inulin/Brom (Uti-Stat Liquid) 3,875 MG PO SCH (17:00)
--- NOTE | 2022-05-21 17:56 | NUR ---
CALLED DR. GARCIA LEFT VM
[2022-05-21] MEDS ORDERED: PIPERACILLIN /TAZOBACTAM 3.375 G in IV D5W 50 ML IV SCH (18:00)
--- NOTE | 2022-05-21 18:26 | NUR ---
CHANGE OF SHIFT REPORT PT RESTING COMFORTABLY IN BED. NO S/S OR C/O PAIN OR DISTRESS NOTED. SIDE RAILS UP X2, CALL LIGHT LEFT WITHIN REACH. NO SIGNIFICANT CHANGES SINCE ADMISSION. WILL GIVE REPORT TO JUSTINE RIOS.
[2022-05-21 20:00] VITALS: BP 119/65
--- NOTE | 2022-05-21 20:00 | NUR ---
MS ZULEYKA INITIAL NOTES Received report from nurse Kaur and checked patient, He's lying in bed on semi fowlers position with side rails x2 up. Pt is aelrt oriented x3 , with IVF NS at 100ml/hr infusing on his RAC patent and intact. Patient on colvin to gravity with tea colored output with some sediments noted. He also with colostomy bag . Noticed BLE edema. skin warm to touch. No signs of discomfort or any distress noted. kept him warm and comfortable at all times. will continue monitoring. Bed in low and lock in position with side rails x2uo. place call light at reach. will continue monitoring.
[2022-05-22] MEDS: PIPERACILLIN /TAZOBACTAM 3.375 G in IV D5W 100 ML IV SCH ×3 (05:42→21:51)
--- NOTE | 2022-05-22 07:13 | NUR ---
MS BILINGUAL HR GENERALIST CLOSING NOTES PT RESTING AT THIS TIME AFTER MORNING CARE DONE. BREATHING EVEN AND NON -LABORED , NOT IN ANY ACUTE DISTRESS NOTED. ALL DUE MEDS GIVEN ORDERED. CORRAL DRAINING WELL 1,600 TOTAL OUTPUT LIKE TEA COLORED WITH SOME SEDIMENTS AND CLOTS. PT DENIES ANY PAIN OR ANY DISCOMFORT. IVF STILL INFUSING ORDERED. KEPT HIM WARM AND COMFORTABLE AT ALL TIMES. BE DIN SEMI FOWLERS POSITION WITH SIDE RAILS X2 UP AND BED ALARM SET FOR SAFETY. WILL ENDORSE TO AM NURSE FOR CONTINUITY OF CARE. PLACE CALL LIGHT AT REACH.
--- NOTE | 2022-05-22 07:30 | NUR ---
PT RECEIVED RESTING COMFORTABLY IN BED. NO S/S OR C/O PAIN OR DISTRESS NOTED. SIDE RAILS UP X2, CALL LIGHT LEFT WITHIN REACH. WILL CONTINUE PLAN OF CARE.
[2022-05-22 08:00] VITALS: BP 106/66
[2022-05-22] MEDS: GABAPENTIN 100 MG CAPSULE PO SCH ×4 (09:00→20:45)
[2022-05-22] MEDS: MIDODRINE HCL (5MG) 5 MG TABLET PO SCH ×3 (09:00→16:28)
[2022-05-22] MEDS ORDERED: PANTOPRAZOLE 40 MG VIAL IV SCH (09:00)
[2022-05-22] MEDS ORDERED: Medication Not On Formulary EA (Cranberry Extract (Cranberry) 425 MG) PO SCH (09:00)
[2022-05-22 09:17] LABS: BASOPHILS % (AUTO) 0.4 % (0.0-2.0); EOSINOPHILS % (AUTO) 3.2 % (0.0-6.0); HEMATOCRIT 25 % (39-51); HEMOGLOBIN 8.2 g/dL (13.5-17.5); LYMPHOCYTES # (AUTO) 0.9 K/uL (0.8-4.8); LYMPHOCYTES % (AUTO) 12.2 % (20.0-44.0); MEAN CORPUSCULAR HGB CONC 33 g/dl (31.0-36.0); MEAN CORPUSCULAR VOLUME 93 fL (80-96); MONOCYTES # (AUTO) 0.9 K/uL (0.1-1.30); MONOCYTES % (AUTO) 11.7 % (2.0-12.0); NEUTROPHILS # (AUTO) 5.5 K/uL (1.8-8.9); NEUTROPHILS % (AUTO) 72.5 % (43.0-81.0); PLATELET COUNT (AUTO) 170 K/uL (150-450); RED BLOOD CELL COUNT(AUTO) 2.68 MIL/uL (4.5-6.0); WHITE BLOOD COUNT (AUTO) 7.6 K/uL (4.3-11.0)
[2022-05-22 10:04] LABS: ALANINE AMINOTRANSFERASE 9 U/L (12-78); ALBUMIN 1.5 g/dL (3.4-5.0); ALKALINE PHOSPHATASE 202 U/L (46-116); ASPARTATE AMINOTRANSFERASE 25 U/L (15-37); BILIRUBIN,TOTAL 0.5 mg/dL (0.2-1.0); CALCIUM, SERUM 8.4 mg/dL (8.5-10.1); CARBON DIOXIDE 31 mmol/L (21-32); CHLORIDE 105 mmol/L (98-107); CREATININE 1.4 mg/dL (0.6-1.3); GLUCOSE 103 mg/dL (74-106); LIPASE 49 U/L (73-393); MAGNESIUM 1.7 mg/dL (1.8-2.4); PHOSPHORUS 3.4 mg/dL (2.5-4.9); POTASSIUM 3.4 mmol/L (3.5-5.1); SODIUM SERUM 141 mmol/L (136-145); TOTAL PROTEIN, SERUM 5.3 g/dL (6.4-8.2); UREA NITROGEN, BLOOD 21 mg/dL (7-18)
[2022-05-22 16:00] VITALS: BP 108/71
[2022-05-22] MEDS: LACTOBACILLUS RHAMNOSUS GG 1 EACH CAP.SPRINK PO SCH (16:26)
[2022-05-22] MEDS: MULTIVIT W/MINERALS 1 TAB TABLET PO SCH (16:26)
[2022-05-22] MEDS: ZINC SULFATE 220 MG CAPSULE PO SCH (16:26)
[2022-05-22] MEDS: ASCORBIC ACID 500 MG TABLET PO SCH (16:27)
[2022-05-22] MEDS: PANTOPRAZOLE 40 MG TABLET.DR PO SCH (16:27)
[2022-05-22] MEDS: THIAMINE HCL 100 MG TABLET PO SCH (16:27)
[2022-05-22] MEDS: LEVOTHYROXINE SODIUM 100 MCG TABLET PO SCH (16:27)
[2022-05-22] MEDS: PROSOURCE / PROSTAT (PYXIS) 30 ML UDC PO SCH ×2 (16:28→17:11)
[2022-05-22] MEDS: ZINC OXIDE 56.7 GM TUBE TP SCH (16:28)
--- NOTE | 2022-05-22 17:38 | NUR ---
PT CALLS OUT FREQUENTLY DESPITE ALL NEEDS BEING MET, ALL QUESTIONS ANSWERED. CHARGE NURSE FEDE MADE AWARE. CHARGE NURSE HAS SEEN AND ASSESSED PATIENT PERSONALLY, AND MET PATIENT'S NEEDS AT THAT TIME. PATIENT CONTINUES TO CALL OUT DESPITE BEING ORIENTED TO CALL LIGHT. WILL CONTINUE TO MONITOR.
--- NOTE | 2022-05-22 18:31 | NUR ---
CHANGE OF SHIFT REPORT PT RESTING COMFORTABLY IN BED. NO S/S OR C/O PAIN OR DISTRESS NOTED. SIDE RAILS UP X2, CALL LIGHT LEFT WITHIN REACH. NO SIGNIFICANT CHANGES SINCE PREVIOUS SHIFT. WILL GIVE REPORT TO JUSTINE RIOS.
--- NOTE | 2022-05-22 20:20 | NUR ---
MS ZULEYKA INITIAL NOTES RECEIVED PT IN BED LYING WITH IVF NS AT 100ML/HR INFUSING AT THIS TIME. RE-ORIENTED WHERE HE AT AND HOW TO USED THE CALL LIGHT SYSTEM. CORRAL TO GRAVITY WITH CLEAR YELLOW OUTPUT NOTED WITH SOME SEDIMENTS. PT ALSO HAVE COLOSTOMY BAG DRY AND INTACT. PT DENIES ANY PAIN OR ANY DISCOMFORT. KEPT HIM WARM AND COMFORTABLE AT ALL TIMES. BED IN LOW AND LOCK IN POSITION WITH SIDE RAILS X3 UP . PLACE CALL LIGHT AT REACH. WILL CONTINUE MONITORING.
[2022-05-22] MEDS: ZOLPIDEM TARTRATE 5 MG TABLET PO PRN ×2 (20:45→21:14)
--- NOTE | 2022-05-22 21:00 | NUR ---
ms pad making machine operator notes patient started screaming and trying to get up even I spoke to him that he can't get up because of his situation. Per am nurse pt has been screaming on and off . gave his Neurontin and ambien to help him relax but patient just spit on us and he said he did not get up he will full his IV line. called cash applications coordinator MD to get meds to calm him down
[2022-05-22] MEDS ORDERED: LORAZEPAM INJ 2 MG/ML VIAL IM/IV PRN (21:30)
--- NOTE | 2022-05-22 21:31 | NUR ---
ms grant notes Ativan given hayley IM as ordered. will continue monitoring for pt safety.
--- NOTE | 2022-05-22 22:30 | NUR ---
MS MILLWORK ESTIMATOR NOTES' patient remains screaming , confused states calling "911" call the Police". Re-oriented where he at . [facility] IVP bag hung by another nurse as ordered.
--- NOTE | 2022-05-23 02:00 | NUR ---
MS ZULEYKA NOTES PT AWAKE BUT SEEM QUIET NOW AFTER ATIVAN GIVEN . NO SIGNS OF ANY DISTRESS NOTED. KEPT HIM WARM AND COMFORTABLE AT ALL TIMES. WILL CONTINUE MONITORING.
[2022-05-23] MEDS: PIPERACILLIN /TAZOBACTAM 3.375 G in IV D5W 100 ML IV SCH ×3 (05:44→21:05)
[2022-05-23 06:01] LABS: BASOPHILS # (AUTO) 0.1 K/uL (0.0-0.2); BASOPHILS % (AUTO) 0.6 % (0.0-2.0); EOSINOPHILS % (AUTO) 2.7 % (0.0-6.0); HEMATOCRIT 26 % (39-51); HEMOGLOBIN 8.7 g/dL (13.5-17.5); LYMPHOCYTES # (AUTO) 1.1 K/uL (0.8-4.8); LYMPHOCYTES % (AUTO) 11.4 % (20.0-44.0); MEAN CORPUSCULAR HGB CONC 34 g/dl (31.0-36.0); MEAN CORPUSCULAR VOLUME 92 fL (80-96); MONOCYTES # (AUTO) 0.9 K/uL (0.1-1.30); MONOCYTES % (AUTO) 9.7 % (2.0-12.0); NEUTROPHILS # (AUTO) 7.3 K/uL (1.8-8.9); NEUTROPHILS % (AUTO) 75.6 % (43.0-81.0); PLATELET COUNT (AUTO) 172 K/uL (150-450); RED BLOOD CELL COUNT(AUTO) 2.79 MIL/uL (4.5-6.0); WHITE BLOOD COUNT (AUTO) 9.6 K/uL (4.3-11.0)
[2022-05-23 06:17] LABS: ALBUMIN 1.6 g/dL (3.4-5.0); BILIRUBIN,TOTAL 0.6 mg/dL (0.2-1.0); CALCIUM, SERUM 8.2 mg/dL (8.5-10.1); CREATININE 0.9 mg/dL (0.6-1.3); POTASSIUM 3.1 mmol/L (3.5-5.1); TOTAL PROTEIN, SERUM 5.6 g/dL (6.4-8.2)
--- NOTE | 2022-05-23 06:40 | NUR ---
MS MACHINE REPAIRMAN CLOSING NOTES PT RESTING AT THIS TIME AFTER MORNING CARE DONE , NO SIGNS OF ANY DISTRESS NOTED AND ANY DISCOMFORT. COLOSTOMY BAG INTACT AND CORRAL DRAINING WELL . KEPT HIM WARM AND COMFORTABLE AT ALL TIMES. ZOSYN IVP HUNG BY ANOTHER NURSE AND INFUSING WELL, NO SIGNS OF ADVERSE REACTION NOTED. BED IN LOW AND LOCK IN POSITION WITH SIDE RAILS X2 UP . BED ALARM SET FOR SAFETY. WILL ENDORSE TO AM NURSE FOR CONTINUITY OF CARE.
--- NOTE | 2022-05-23 07:55 | NUR ---
RN OPENING NOTES RECEIVED PT SLEEPING IN BED AT THIS TIME. A/O X3, ABLE TO VERBALIZE CONCERNS. ON RA WITH S/S OF RESPIRATORY DISTRESS. NO SIGNS OF PAIN AND DISCOMFORT AT THIS TIME. WITH IV ACCESS NOTED AT RAC #20G. COLOSTOMY BAG NOTED. SAFETY MEASURES IN PLACE: BED LOCKED AND IN LOW POSITION, SIDERAILS UP X2, CALL LIGHT AND TRAY TABLE WITHIN REACH. WILL CONTINUE TO MONITOR AND ASSIST.
[2022-05-23 08:00] VITALS: BP 133/75
[2022-05-23] MEDS: LACTOBACILLUS RHAMNOSUS GG 1 EACH CAP.SPRINK PO SCH (08:42)
[2022-05-23] MEDS: GABAPENTIN 100 MG CAPSULE PO SCH ×4 (08:42→20:01)
[2022-05-23] MEDS: MULTIVIT W/MINERALS 1 TAB TABLET PO SCH (08:42)
[2022-05-23] MEDS: THIAMINE HCL 100 MG TABLET PO SCH (08:42)
[2022-05-23] MEDS: ASCORBIC ACID 500 MG TABLET PO SCH (08:42)
[2022-05-23] MEDS: PANTOPRAZOLE 40 MG TABLET.DR PO SCH (08:42)
[2022-05-23] MEDS: ZINC SULFATE 220 MG CAPSULE PO SCH (08:43)
[2022-05-23] MEDS: MIDODRINE HCL (5MG) 5 MG TABLET PO SCH ×3 (08:45→16:29)
[2022-05-23] MEDS: PROSOURCE / PROSTAT (PYXIS) 30 ML UDC PO SCH ×2 (08:47→16:30)
[2022-05-23] MEDS: LEVOTHYROXINE SODIUM 100 MCG TABLET PO SCH (08:47)
[2022-05-23] MEDS: ZINC OXIDE 56.7 GM TUBE TP SCH (09:33)
[2022-05-23] MEDS ORDERED: POTASSIUM CHLORIDE 20 MEQ POWDER PACKET NG SCH (10:00)
--- NOTE | 2022-05-23 15:08 | NUR ---
RN NOTES: SEEN AND EXMINED BY DR DUANE CULVER, ORDERED PODIATRY CONSULT ( DR ESPINOZA), FOR PT/OT EVAL. ORDERS NOTED AND CARRIED OUT.
[2022-05-23 16:00] VITALS: BP 156/94
--- NOTE | 2022-05-23 18:32 | NUR ---
RN CLOSING NOTES PATIENT RESTING IN BED. A/O X 3. PATIENT ABLE TO VERBALIZED NEED. WITH IV ACCESS ON RAC #20G CONNECTED TO NS AT 75 ML/HR INFUSING WELL. NO SIGNS OF PAIN AND SHORTNESS OF BREATH AT THIS TIME. WITH COLOSTOMY BAG CLEAN AND DRY. NO SIGNS OF BLEEDING NOTED. NEEDS ATTENDED WELL.ALL DUE MEDICATIONS GIVEN. SAFETY MEASURE IN PLACE: BED IN LOWEST POSITION AND LOCKED, SIDE RAILS X 2, BED ALARM ON, CALL LIGHT AND TRAY TABLE WITHIN REACH OF PT. WILL ENDORSE KELLY IN ALUMINUM SHEET CUTTER.
--- NOTE | 2022-05-23 19:05 | NUR ---
MS RN OPENING NOTES PT IS IN BED WATCHING TV. A/O X 2 TO 3. PATIENT IS ON 2 LPM OXYGEN VIA NC, TOLERATED WELL. NO S/S OF DISTRESS OR SOB. IV ACCESS AT HIS R AC WAS LEAKING AND INFILTRATED; NORMAL SALINE SOAKED PATIENT'S BED AND GOWN. PAUSED THE IV INFUSION, ELEVATED THE R ARM, AND REMOVED THE IV ACCESS. BANDAGE WAS APPLIED ON THE SKIN TEAR NEAR THE IV ACCESS. ABD DRESSING IS [place]. COLOSTOMY BAG IS HALF FULL; CHANGED. COLOSTOMY SITE IS CLEAN AND INTACT. CORRAL CATHETER IS DRAINING CLOUDY YELLOW COLOR URINE FREELY. SAFETY MEASURES IN PLACE: BED LOCKED AND IN LOWEST POSITION, SIDE RAILS UP X2, CALL LIGHT AND TRAY TABLE WITHIN REACH. WILL CONTINUE MONITOR THE PATIENT AND PROVIDE THE CARE PATIENT NEEDS..
--- NOTE | 2022-05-23 19:10 | NUR ---
MS RN NOTE NEW IV SITE IS ESTABLISHED AT PATIENT'S L FA, #22G; RUNNING NS @ 100 ML/HR. THE NEW IV SITE IS PATIENT AND INTACT.
[2022-05-23 20:00] VITALS: BP 150/94
[2022-05-24] MEDS: PIPERACILLIN /TAZOBACTAM 3.375 G in IV D5W 100 ML IV SCH ×2 (05:00→13:24)
[2022-05-24 06:21] LABS: CALCIUM, SERUM 8.2 mg/dL (8.5-10.1); CARBON DIOXIDE 29 mmol/L (21-32); CHLORIDE 105 mmol/L (98-107); CREATININE 0.7 mg/dL (0.6-1.3); GLUCOSE 86 mg/dL (74-106); POTASSIUM 3.4 mmol/L (3.5-5.1); SODIUM SERUM 140 mmol/L (136-145); UREA NITROGEN, BLOOD 10 mg/dL (7-18)
--- NOTE | 2022-05-24 06:46 | NUR ---
MS RN CLOSING NOTE PT IS IN BED SLEEPING. EASILY BEING AROUSED. A/O X 2 TO 3. PATIENT IS ON 2 LPM OXYGEN VIA NC, TOLERATED WELL. NO S/S OF DISTRESS OR SOB. IV ACCESS IS AT HIS L FA, #22G, RUNNING NS @ 100 ML / HR. THE IV SITE IS PATENT AND INTACT. ABD DRESSING IS IRWIN. COLOSTOMY BAG HAS BEEN CHANGED TWICE THROUGHOUT THE SHIFT; COLOSTOMY STOMA SITE IS IN PINK TO REDDISH COLOR, CLEAN AND INTACT. CORRAL CATHETER IS DRAINING CLOUDY YELLOW COLOR URINE FREELY. URINE OUTPUT IS 900 ML DURING THE SHIFT. SAFETY MEASURES ARE IN PLACE: BED LOCKED AND IN LOWEST POSITION, SIDE RAILS UP X2, CALL LIGHT AND TABLE ARE WITHIN REACH. WILL ENDORSE NEXT SHIFT NURSE FOR CONTINUING PATIENT CARE.
[2022-05-24] MEDS: LEVOTHYROXINE SODIUM 100 MCG TABLET PO SCH (07:42)
[2022-05-24] MEDS: PANTOPRAZOLE 40 MG TABLET.DR PO SCH (07:42)
--- NOTE | 2022-05-24 07:50 | NUR ---
RN OPENING NOTES PT A/O X 2 TO 3. PATIENT IS ON 2 LPM OXYGEN VIA NC, TOLERATED WELL. NO S/S OF DISTRESS OR SOB. IV LFA #22G. ABD DRESSING IS [place]WIN. COLOSTOMY SITE IS CLEAN AND INTACT. CORRAL CATHETER IS DRAINING CLOUDY YELLOW COLOR URINE TO GRAVITY. SAFETY MEASURES IN PLACE: BED LOCKED AND IN LOWEST POSITION, SIDE RAILS UP X2, CALL LIGHT AND TRAY TABLE WITHIN REACH. WILL CONTINUE MONITOR/ ASSIST
[2022-05-24 08:00] VITALS: BP 105/62
[2022-05-24] MEDS: MIDODRINE HCL (5MG) 5 MG TABLET PO SCH ×3 (08:24→16:27)
[2022-05-24] MEDS: LACTOBACILLUS RHAMNOSUS GG 1 EACH CAP.SPRINK PO SCH (08:25)
[2022-05-24] MEDS: ASCORBIC ACID 500 MG TABLET PO SCH (08:25)
[2022-05-24] MEDS: ZINC SULFATE 220 MG CAPSULE PO SCH (08:25)
[2022-05-24] MEDS: MULTIVIT W/MINERALS 1 TAB TABLET PO SCH (08:25)
[2022-05-24] MEDS: THIAMINE HCL 100 MG TABLET PO SCH (08:25)
[2022-05-24] MEDS: GABAPENTIN 100 MG CAPSULE PO SCH ×3 (08:25→16:28)
[2022-05-24] MEDS: PROSOURCE / PROSTAT (PYXIS) 30 ML UDC PO SCH ×2 (08:28→16:30)
[2022-05-24] MEDS ORDERED: POTASSIUM CHLORIDE 20 MEQ POWDER PACKET NG SCH (09:00)
[2022-05-24] MEDS: ZINC OXIDE 56.7 GM TUBE TP SCH (09:04)
[2022-05-24] MEDS ORDERED: AMOX500T2 PO (13:40)
[2022-05-24 16:00] VITALS: BP 102/72
[2022-05-24 16:27] VITALS: BP 143/71
--- NOTE | 2022-05-24 17:48 | NUR ---
RN DC NOTE- PT DEC AT THIS TIME TO [facility] VIA AMBULANCE. VS STABLE, ID WRISTBAND REMOVED. IV AND CORRAL LEFT PER REQUEST OF FACILITY NURSE WHEN REPORT GIVEN. (TOMMIE RIOS). PT REFUSED PHOTOS OF LT HEEL. ESCORTED OFF UNIT BY AMBULANCE STAFF
== END 2022-05-24 17:35 | DRG 682 ==
LOC: ER 09:29 → MED 12:51
PROVIDERS: ADMIT Nurse Practitioner Acute Care; ATTEND Nurse Practitioner Acute Care
DX: N17.0 Acute kidney failure with tubular necrosis (principal); G92.8 Other toxic encephalopathy; R53.2 Functional quadriplegia; N39.0 Urinary tract infection, site not specified; E27.40 Unspecified adrenocortical insufficiency; K76.6 Portal hypertension; E44.0 Moderate protein-calorie malnutrition; K80.20 Calculus of gallbladder without cholecystitis without obstruction; E03.9 Hypothyroidism, unspecified; Z20.822 Contact with and (suspected) exposure to COVID-19; E88.09 Other disorders of plasma-protein metabolism, not elsewhere classified; G30.9 Alzheimer's disease, unspecified; F02.80 Dementia in other diseases classified elsewhere, unspecified severity, without behavioral disturbance, psychotic disturbance, mood disturbance, and anxiety; Z87.440 Personal history of urinary (tract) infections; Z93.3 Colostomy status; Z68.30 Body mass index [BMI] 30.0-30.9, adult; I10 Essential (primary) hypertension; Z90.49 Acquired absence of other specified parts of digestive tract; R31.9 Hematuria, unspecified; K74.60 Unspecified cirrhosis of liver; L89.626 Pressure-induced deep tissue damage of left heel; K21.9 Gastro-esophageal reflux disease without esophagitis; E66.9 Obesity, unspecified; B96.89 Other specified bacterial agents as the cause of diseases classified elsewhere; E87.6 Hypokalemia
CPT/HCPCS: 36415; 76700-TC; 78226; 80048-TC; 80053-TC; 80076-TC; 81001; 83690-TC; 83735-TC; 84100-TC; 85025-TC; 85610-TC; 85730-TC; 86850-TC; 87081-TC; 87086-TC; 97530-TC; A9537; C9803; G0378; J2060; J2270; J2543; J3490; J7030; J7060